=== PATIENT | female | born 1945 | race Caucasian/White ===

== ENCOUNTER 2016-10-22 13:56 | Inpatient (IN) ==
--- NOTE | 2016-10-22 14:07 | Emergency Department Note ---
Disposition Clinical Impression: Pneumonitis, Elevated troponin, Dyspnea Disposition: Admitted As Inpatient Condition: Good General Adult HPI - General Chief complaint: ED Fever Stated complaint: cough, fever Time Seen by Provider: 10/22/16 14:04 Source: patient - History of Present Illness Pain Scale: 8 - Related Data Home Medications Medication Instructions Recorded Confirmed Albuterol Sulfate [Proair Hfa] 2 puff IH Q4H PRN 10/22/16 10/22/16 Amitriptyline [Elavil] 10 mg PO HS 10/22/16 10/22/16 Aspirin [Lo-Dose Aspirin EC] 81 mg PO DAILY 10/22/16 10/22/16 Cholecalciferol (D-3) [Vitamin D] 1,000 unit PO DAILY 10/22/16 10/22/16 Docusate Sodium [Colace] 100 mg PO DAILY 10/22/16 10/22/16 Escitalopram [Lexapro] 20 mg PO DAILY 10/22/16 10/22/16 Furosemide [Lasix] 20 mg PO DAILY PRN 10/22/16 10/22/16 Glucosamine/D3/Boswellia Teena 1 tab PO DAILY 10/22/16 10/22/16 [Osteo Bi-Flex Tablet] LORazepam [Ativan] 1 mg PO TID PRN 10/22/16 10/22/16 Lansoprazole [Prevacid] 30 mg PO DAILY 10/22/16 10/22/16 Lidocaine Patch [Lidoderm 5% patch] 1 patch TP DAILY 10/22/16 10/22/16 Potassium Chloride [K-Tab ER] 20 meq PO DAILY 10/22/16 10/22/16 Simvastatin [Zocor] 20 mg PO DAILY 10/22/16 10/22/16 Allergies Allergy/AdvReac Type Severity Reaction Status Date / Time meloxicam Allergy Rash Verified 10/22/16 17:34 Past Medical History - Past Medical History Medical history: Reports: cancer Psychiatric history: Reports: no psych history - Social History Smoking Status: Former smoker Alcohol use: Reports: none Drug use: Reports: none Physical Exam - General General appearance: alert, in no apparent distress Course Vital Signs Temperature 100.4 F H 10/22/16 13:57 Pulse Rate 98 10/22/16 13:57 Respiratory Rate 16 10/22/16 13:57 Blood Pressure 162/61 10/22/16 13:57 O2 Sat by Pulse Oximetry 93 10/22/16 13:57 Temperature 100.4 F H 10/22/16 13:57 Pulse Rate 90 10/22/16 17:34 Respiratory Rate 16 10/22/16 17:50 Blood Pressure 108/42 10/22/16 17:50 O2 Sat by Pulse Oximetry 97 10/22/16 17:34 Oxygen Delivery Oxygen Delivery Room Air Medical Decision Making - Lab Data Result diagrams: 10/22/16 14:33 10/22/16 14:33 Lab Results 10/22/16 10/22/16 10/22/16 Range/Units 14:33 14:33 14:33 WBC 13.2 H (4.3-11.1) K/mcL RBC 3.09 L (3.82-4.97) M/mcL Hgb 10.6 L (11.5-15.4) g/dL Hct 32.7 L (35.3-44.9) % MCV 105.5 H (83.0-100.0) fL MCH 34.0 H (28.0-33.3) pg MCHC 32.2 (31.6-35.5) g/dL RDW 15.0 H (11.5-14.5) % Plt Count 216 (140-400) K/mcL MPV 10.5 (9.4-12.4) fL Immature Gran % 0.2 (0-4) % Seg Neutrophils % 78.6 % Lymphocytes % 14.0 % Monocytes % 7.0 % Eosinophils % 0.0 % Basophils % 0.2 % Neutrophils # 10.3 H (1.6-8.9) K/mcL Lymphocytes # 1.8 (0.6-4.6) K/mcL Monocytes # 0.9 (0.0-1.3) K/mcL Eosinophils # 0.0 (0.0-0.6) K/mcL Basophils # 0.0 (0.0-0.2) K/mcL Sodium 140 (136-145) mEq/L Potassium 3.9 (3.5-4.5) mEq/L Chloride 105 (98-109) mEq/L Carbon Dioxide 26 (19-29) mEq/L BUN 15 (7-20) mg/dL Creatinine 0.88 (0.57-1.11) mg/dL Est GFR ( Amer) > 60 (> 60) Est GFR (Non-Af Amer) > 60 (> 60) BUN/Creatinine Ratio 17 (6-26) Glucose 110 H (70-99) mg/dL Calculated Osmolality 291 (280-300) Calcium 9.5 (8.6-10.8) mg/dL Troponin I 0.05 H* (0-0.03) ng/mL Attestation Statement - Attestation Attestation: I examined this patient and my medical decision-making was reviewed with the FEED MIXER/PA/Advanced Practice Nurse/Resident Physician. I agree with the documented findings, disposition and treatment plan as described except to the extent set forth below. [id number] time provided Patient complains of a nonproductive cough for the past several days. MAXIMUM TEMPERATURE 102 since yesterday. She appears in no acute distress on exam
--- NOTE | 2016-10-22 14:27 | Emergency Department Note ---
Disposition Clinical Impression: Pneumonitis, Elevated troponin Dyspnea Qualifiers: Dyspnea type: unspecified Qualified Code(s): R06.00 - Dyspnea, unspecified Disposition: Admitted As Inpatient Condition: Good Referrals: Serjio Engel Jr, MD [Primary Care Provider] - Forms: ED Satisfaction Letter Fever HPI - General Chief Complaint: ED Fever Stated Complaint: cough, fever Time Seen by Provider: 10/22/16 14:04 Source: patient Nursing Notes Reviewed: Yes Vital Signs Reviewed: Yes - History of Present Illness HPI Narrative: 71-year-old female with a history of non-Hodgkin's lymphoma years ago status post chemotherapy presents to the emergency department with a chief complaint of shortness of breath and fever. She states over the last 24 hours her breathing has worsened and she has had a light cough. She reports a fever however, she reports intermittent fevers for years ever since the diagnosis of lymphoma. She had her spleen removed years ago which help diagnose her lymphoma. She has a history of COPD and is a former smoker. She denies any history of coronary artery disease or congestive heart failure. She states she developed a post-operative DVT years ago and has a Wisdom filter but no anticoagulants because she could not tolerate Coumadin. She states this was not abrupt in onset and has been progressive. She states it is worse and mostly over the last 24 hours but has had progressive shortness of breath for the last few days. She reports chronic lower extremity swelling without any new swelling. She denies any calf tenderness. About a month and a half ago she fell injuring her right ribs but no other injury. She denies any abdominal pain, nausea or vomiting. Denies any pain going into her back. Denies any associated diaphoresis. - Related Data Allergies Allergy/AdvReac Type Severity Reaction Status Date / Time No Known Allergies Allergy Verified 10/22/16 14:02 All systems ED: reviewed and negative except as stated. Constitutional: Reports: fever Cardiovascular: Denies: chest pain Respiratory: Reports: cough Gastrointestinal: Denies: abdominal pain, nausea, vomiting Musculoskeletal: Denies: back pain, neck pain Integumentary: Denies: rash Neurological: Reports: headache (She reports mild headache without any neck pain or rigidity). Denies: weakness, numbness Fever PMH - Past Medical History Medical history: Reports: cancer Psychiatric history: Reports: no psych history - Social History Smoking Status: Former smoker Alcohol use: Reports: none Drug use: Reports: none Physical Exam General: Appears well, alert and oriented x 3 Cardiovascular: Regular rate and rhythm. S1, S2. No murmurs, rubs or gallops. No JVD Respiratory: Diminished breath sounds bilaterally without any wheezing, rales or rhonchi. Abdomen: Soft, nontender. No guarding, rebound or rigidity. Eyes: Conjunctiva clear, HENT: Normocephalic, no signs of head injury. No oral mucosal lesions. Moist mucous membranes Neuro: Alert and oriented 3, no motor or sensory deficits Musculoskeletal: Bilateral lower extremity edema involving the ankles and shins. No calf tenderness or calf asymmetry. Skin: No lesions. No diaphoresis. Normal turgor. Normal color Psych: Appropriate - General General appearance: alert, in no apparent distress Course Course Narrative: Presents with fevers, cough and shortness of breath. Initial EKG shows some new T-wave inversions in 1 and aVL. No history of CAD in the past. The chest x -ray showed some inflammatory changes but nothing significant. She also has a history of DVT with a Wisdom filter. We felt patient was high enough risk with her symptoms and history a CTA was ordered. CTA shows some inflammatory/ pneumonitis changes in the left lung but no evidence of PE. I feel her troponin elevation does not represent ACS and will just need to be trended in the hospital and may be due to her lung infection. We will treat her respiratory symptoms with dual nebs, IV Rocephin and azithromycin to help cover atypicals and admission to the hospital for observation. Discussed with the on- call hospitalist, Dr. Claros who accepts for admission Vital Signs Temperature 100.4 F H 10/22/16 13:57 Pulse Rate 98 10/22/16 13:57 Respiratory Rate 16 10/22/16 13:57 Blood Pressure 162/61 10/22/16 13:57 O2 Sat by Pulse Oximetry 93 10/22/16 13:57 Temperature 100.4 F H 10/22/16 13:57 Pulse Rate 91 10/22/16 16:09 Respiratory Rate 16 10/22/16 16:09 Blood Pressure 127/55 10/22/16 16:09 O2 Sat by Pulse Oximetry 95 10/22/16 16:09 Oxygen Delivery Oxygen Delivery Room Air Fever - Lab Data Result diagrams: 10/22/16 14:33 10/22/16 14:33 Lab Results 10/22/16 10/22/16 10/22/16 Range/Units 14:33 14:33 14:33 Hgb 10.6 L (11.5-15.4) g/dL Hct 32.7 L (35.3-44.9) % Sodium 140 (136-145) mEq/L Potassium 3.9 (3.5-4.5) mEq/L Chloride 105 (98-109) mEq/L Carbon Dioxide 26 (19-29) mEq/L BUN 15 (7-20) mg/dL Creatinine 0.88 (0.57-1.11) mg/dL Est GFR ( Amer) > 60 (> 60) Est GFR (Non-Af Amer) > 60 (> 60) BUN/Creatinine Ratio 17 (6-26) Glucose 110 H (70-99) mg/dL Calculated Osmolality 291 (280-300) Calcium 9.5 (8.6-10.8) mg/dL Troponin I 0.05 H* (0-0.03) ng/mL - EKG Data EKG results narrative: EKG shows a sinus rhythm with a rate of 91 beats or minute. She has a left bundle-branch block pattern. No ST elevation or depression. New T-wave inversions in lead 1 and aVL. Previous EKG in 2012 shows similar wave morphology however the T-wave inversion was not present
[2016-10-22 14:48] LABS: Hematocrit 32.7 % (35.3-44.9); Hemoglobin 10.6 g/dL (11.5-15.4)
[2016-10-22 15:01] LABS: BUN/Creatinine Ratio 17 (6-26); Blood Urea Nitrogen 15 mg/dL (7-20); Calcium 9.5 mg/dL (8.6-10.8); Carbon Dioxide 26 mEq/L (19-29); Chloride 105 mEq/L (98-109); Glucose 110 mg/dL (70-99); Osmolality,Calculated 291 (280-300); Potassium 3.9 mEq/L (3.5-4.5); Sodium 140 mEq/L (136-145); eGFR For African Americans > 60 (> 60); eGFR For Non-African Americans > 60 (> 60)
[2016-10-22] MEDS ORDERED: Ipratropium/Albuterol Neb 3 ML IH ONE (15:33)
[2016-10-22] MEDS ORDERED: Azithromycin 250 MG TABLET PO ONE (16:27)
[2016-10-22] MEDS ORDERED: Naloxone 0.4 MG/ML INJ IVP PRN (17:06)
[2016-10-22] MEDS ORDERED: Ondansetron 4 MG/2 ML VIAL IVP PRN (17:06)
[2016-10-22] MEDS ORDERED: *HR* HYDROcodone/Acet 5/325 mg TABLET PO PRN (17:06)
[2016-10-22] MEDS ORDERED: Albuterol 2.5 MG/3 ML NEBULIZER IH PRN (17:11)
--- NOTE | 2016-10-22 17:22 | Internal Med History&Physical ---
Date of Encounter: 10/22/16 Time of Encounter: 17:22 Assessment and Plan (1) Pneumonia Current visit: Yes Status: Acute 1patient has been experiencing 2 days cough shortness of breath fever sputum production. CT revealed groundglass opacities in left upper and lower lobes indicative of pneumonia. Patient was initiated on Rocephin as well as azithromycin will continue 2 we will obtain blood cultures as well as sputum cultures 3 breathing treatments 4 oxygen titrated to maintain O2 sat 92% 5 we will obtain flu swabs 6. Hold off on steroids for now Qualifiers: Pneumonia type: due to unspecified organism Laterality: left Lung location: unspecified part of lung Qualified Code(s): J18.9 - Pneumonia, unspecified organism (2) History of non-Hodgkin's lymphoma Current visit: No Status: Chronic 1 patient has been in remission-presently stable we will monitor (3) History of DVT (deep vein thrombosis) Current visit: No Status: Chronic 1 she has Uriel filter we will add Lovenox for DVT prophylaxis (4) COPD (chronic obstructive pulmonary disease) Current visit: Yes Status: Chronic 1continue with bronchodilators and oxygen 2 add steroids if wheezing continues Qualifiers: COPD type: unspecified COPD Qualified Code(s): J44.9 - Chronic obstructive pulmonary disease, unspecified (5) Elevated troponin Current visit: Yes Status: Acute troponin 0.05 suspect this is demand ischemia I will continue to trend troponins 2 we will obtain cardiac echo Internal Medicine - H&P: HPI Chief complaint: Shortness of breath Admitted From: Emergency Dept Plans for Post Hospital Care: Home History of present illness: Ms. Landin is a 71 year old female past medical history of non-Hodgkin's lymphoma DVT with Uriel filter placement arthritis GERD COPD. Greater than patient has been experiencing increasing fatigue and weakness as well as cough fever for the past 2 days. States cough has been producing rust color sputum fevers-102.7. She also complains of headache and achiness having some difficulty sleeping shortness of breath on exertion and wheezing. She does admit to sick contact she denies any nausea vomiting diarrhea or chest pain. She presented to the ER the above complaints. Upon presentation patient's temp was 100.4 oxygen saturation was 93% on room air CTA was obtained which did show some groundglass opacities and left upper and lower lung alberts indicative of pneumonia. EKG with no ST-T wave abnormalities troponin was 0.05 Patient was given IV antibiotics and has been admitted for further workup evaluation. Presently patient does not appear to be any respiratory distress she denies any chest pain lung sounds with expiratory wheezes throughout and crackles in the bases. Heart sounds S1 and S2 with no rubs gallops clicks or murmurs noted I reviewed this case with who agrees with plan Past Med Surg Social Fam HX - Past Medical History Medical history: cancer Psychiatric history: no psych history - Social History Smoking Status: Former smoker Alcohol use: none Drug use: none - Family History Father Living Status: Cause of : Heart disease Mother Living Status: Cause of : Pancreatic cancer Internal Medicine - H&P: Meds Albuterol Sulfate [Proair Hfa] 2 puff IH Q4H PRN 10/22/16 [History] Amitriptyline [Elavil] 10 mg PO HS 10/22/16 [History] Aspirin [Lo-Dose Aspirin EC] 81 mg PO DAILY 10/22/16 [History] Cholecalciferol (D-3) [Vitamin D] 1,000 unit PO DAILY 10/22/16 [History] Docusate Sodium [Colace] 100 mg PO DAILY 10/22/16 [History] Escitalopram [Lexapro] 20 mg PO DAILY 10/22/16 [History] Furosemide [Lasix] 20 mg PO DAILY PRN 10/22/16 [History] Glucosamine/D3/Boswellia Teena [Osteo Bi-Flex Tablet] 1 tab PO DAILY 10/22/16 [ History] LORazepam [Ativan] 1 mg PO TID PRN 10/22/16 [History] Lansoprazole [Prevacid] 30 mg PO DAILY 10/22/16 [History] Lidocaine Patch [Lidoderm 5% patch] 1 patch TP DAILY 10/22/16 [History] Potassium Chloride [K-Tab ER] 20 meq PO DAILY 10/22/16 [History] Simvastatin [Zocor] 20 mg PO DAILY 10/22/16 [History] Allergies meloxicam Allergy (Verified 10/22/16 17:34) Rash All Systems PM: A 10-system review of systems was performed and is negative for pertinent findings except as documented above in the HPI. - Constitutional Constitutional: fatigue, fever(s), weakness - EENT Eyes: no change in vision, no discharge, no pain, no photophobia Nose, mouth and throat: no dysphagia, no nasal discharge, no neck pain, no sore throat - Cardiovascular Cardiovascular ROS IM: no chest pain, no diaphoresis, no dyspnea, no lightheadedness, no palpitations, no syncope - Respiratory Respiratory: cough, dyspnea on exertion, change in phlegm color - Gastrointestinal Gastrointestinal: no abdominal pain, no diarrhea, no hematemesis, no hematochezia, no melena, no nausea, no vomiting - Genitourinary Genitourinary: no change in urinary stream, no dysuria, no flank pain, no hematuria - Musculoskeletal Musculoskeletal ROS IM: no numbness, no tingling - Integumentary Integumentary IM: no rash, no unusual bruising - Neurological Neurological ROS: no confusion, no convulsions, no focal weakness, no numbness, no tingling, no tremor(s) - Hematologic/Lymphatic Hematologic/Lymphatic: no easy bruising - Constitutional Vitals: Temp Pulse Resp BP Pulse Ox 100.4 F H 91 16 127/55 95 10/22/16 13:57 10/22/16 16:09 10/22/16 16:09 10/22/16 16:09 10/22/16 16:09 General appearance: Present: A&O X 3, answers questions appropriately - Head Head exam: Present: atraumatic, normocephalic - Eye Eye exam: Present: PERRL, conjuntiva pink, sclera anicteric Pupils: Present: PERRL - Neck Neck exam general surgery: Present: supple, trachea midline. Absent: lymphadenopathy - Respiratory Respiratory exam: Present: rales, wheezes. Absent: accessory muscle use, rhonchi - Cardiovascular Cardiovascular exam: Present: RRR, +S1, +S2. Absent: diastolic murmur, gallop, rubs, systolic murmur - GI/Abdominal GI/Abdominal exam: Present: normal bowel sounds, soft, no peritoneal signs. Absent: distended, tenderness - Extremities Exam Extremities exam: Present: warm, radial pulses palpable and symetrical. Absent : calf tenderness, cyanotic, pedal edema - Neurological Exam Neurological exam: Present: CN II-XII intact, oriented X3, no focal deficits. Absent: pronater drift, facial droop, speech deficit - Skin Skin exam: Present: dry, intact Internal Med - H&P Results - Labs CBC & Chem 7: 10/22/16 14:33 10/22/16 14:33 - EKG Data EKG shows normal: sinus rhythm - Diagnostic Studies Other Images Additional comments: Chest X-Ray 10/22/16 14:28 IMPRESSION: Bibasilar atelectasis or pneumonitis. Follow-up to resolution suggested. D/ / Jakub Brewer MD / Jakub Brewer MD Interpreting Provider: Jakub Brewer MD Chest CTA 10/22/16 15:32 IMPRESSION: No gross findings of pulmonary embolism. New patchy heterogeneous and ground-glass nodules throughout the left upper and lower lobe, suggestive of pneumonitis. Follow-up to complete resolution is recommended. Moderate hiatal hernia. Atherosclerosis, including coronary artery calcification. D/ / Jakub Brewer MD / Jakub Brewer MD Interpreting Provider: Jakub Brewer MD
[2016-10-22 17:31] LABS: Basophils % 0.2 %; Immature Granulocytes % 0.2 % (0-4); Lymphocytes # 1.8 K/mcL (0.6-4.6); Mean Corpuscular HGB Conc 32.2 g/dL (31.6-35.5); Mean Corpuscular Volume 105.5 fL (83.0-100.0); Mean Platelet Volume 10.5 fL (9.4-12.4); Monocytes # 0.9 K/mcL (0.0-1.3); Neutrophils # 10.3 K/mcL (1.6-8.9); Platelet Count 216 K/mcL (140-400); Red Blood Count 3.09 M/mcL (3.82-4.97); Segmented Neutrophils % 78.6 %
[2016-10-22] MEDS: Aspirin 81 MG TAB.CHEW PO SCH (17:32)
--- NOTE | 2016-10-22 17:50 | Event Note ---
Date of Encounter: 10/22/16 Time of Encounter: 17:30 I examined this patient and my medical decision-making was reviewed with Ms. Cantu. I agree with the documented findings, disposition and treatment plan as described except to the extent set forth below. Briefly, 71-year-old female presents to the emergency room due to fever, dry cough, shortness of breath that has been going on for the past few days. She also reports recent wheezing. On exam, patient has intermittent end expiratory wheezing bilaterally. She appears to be in mild distress. Laboratory data reviewed. CT antigram personally reviewed-no evidence of PE. Groundglass nodules throughout the left upper and lower lobes suggestive of pneumonitis. 1. Pneumonitis-patient will be admitted to inpatient status. High risk is due to risk of sepsis. Expected length of stay is at least 2 midnights. Expected discharge disposition is to home. Patient will be given intravenous antibiotics. Will hold off on steroids for now. If the patient's status does not improve adequately, we will consider addition of steroids. Breathing treatments. Flu testing. Urine strep local and regional antigens. 2. Macrocytic anemia 3. Elevated troponin level-no EKG changes suggestive of ischemia. We will cycle troponins levels and obtain an echocardiogram. Further management to depend on the results of her lab work and echocardiogram. 4. History of non-Hodgkin's lymphoma status post chemotherapy JONO Umaña
[2016-10-22] MEDS ORDERED: *HR* LORazepam 1 MG TABLET PO PRN (17:55)
[2016-10-22] MEDS: Ipratropium/Albuterol Neb 3 ML IH SCH ×2 (20:10→23:59)
[2016-10-23 01:21] LABS: Basophils % 0.2 %; Hematocrit 29.7 % (35.3-44.9); Hemoglobin 9.7 g/dL (11.5-15.4); Immature Granulocytes % 0.4 % (0-4); Lymphocytes # 4.8 K/mcL (0.6-4.6); Lymphocytes % 24.4 %; Mean Corpuscular HGB Conc 32.7 g/dL (31.6-35.5); Mean Corpuscular Hemoglobin 33.8 pg (28.0-33.3); Mean Corpuscular Volume 103.5 fL (83.0-100.0); Mean Platelet Volume 9.7 fL (9.4-12.4); Monocytes # 1.3 K/mcL (0.0-1.3); Monocytes % 6.5 %; Neutrophils # 13.4 K/mcL (1.6-8.9); Platelet Count 186 K/mcL (140-400); Red Blood Count 2.87 M/mcL (3.82-4.97); Segmented Neutrophils % 68.5 %
[2016-10-23 01:32] LABS: BUN/Creatinine Ratio 17 (6-26); Blood Urea Nitrogen 15 mg/dL (7-20); Calcium 8.9 mg/dL (8.6-10.8); Carbon Dioxide 25 mEq/L (19-29); Chloride 105 mEq/L (98-109); Glucose 109 mg/dL (70-99); Osmolality,Calculated 287 (280-300); Potassium 3.6 mEq/L (3.5-4.5); Sodium 138 mEq/L (136-145); eGFR For African Americans > 60 (> 60); eGFR For Non-African Americans > 60 (> 60)
[2016-10-23] MEDS: Ipratropium/Albuterol Neb 3 ML IH SCH ×6 (04:05→23:05)
[2016-10-23] MEDS: *HR* Enoxaparin 40 MG/0.4 ML SYRINGE SQ SCH (06:16)
[2016-10-23] MEDS: Aspirin 81 MG TAB.CHEW PO SCH (07:33)
[2016-10-23] MEDS: Cholecalciferol (D-3) 1,000 UNIT TABLET PO SCH (07:33)
[2016-10-23] MEDS ORDERED: Aspirin Enteric Coated 81 MG Tablet PO SCH (09:00)
--- NOTE | 2016-10-23 10:14 | Internal Med Progress Note ---
<Jeison Wilson - Last Filed: 10/23/16 09:59> Date of Encounter: 10/23/16 Time of Encounter: 10:00 - Assessment and plan (1) Pneumonia Current Visit: Yes Status: Acute Assessment and plan: 70-year-old female history of non-Hodgkin's lymphoma in remission, DVT with Uriel filter placed, gastric reflux presents with fever and shortness of breath. Patient's symptoms started Monday morning. She had rust-colored sputum and fevers of 102.7. Patient also complained of headache, difficulty sleeping, shortness of breath worsening with exertion. On presentation patient' s temperature is 100.4 and she is saturating 93% on room air. CTA showed groundglass opacities in the left upper and lower lobe and was negative for PE. CT also showed a large hiatal hernia the patient says she has no history of. Patient's EKG showed ST-T wave changes in 1 and aVL and her troponin initially was 0.05 which trended down to 0.02. Patient states Monday night she came home late and had a late dinner. She has a history of gastric reflux. CTA found a large hiatal hernia. Patient sleeps flat on the bed. Patient takes ibuprofen for headache. Pneumonia most likely secondary to aspiration Leukocytosis increased from 13-19.5. Over the past 24 hours patient's shortness of breath is improved. Her lung sounds are clear without wheezing, rales or rhonchi. Continue ceftriaxone and azithromycin. Currently on room air. Qualifiers: Pneumonia type: aspiration pneumonia Aspiration pneumonia type: due to gastric secretions Laterality: left Lung location: unspecified part of lung Qualified Code(s): J69.0 - Pneumonitis due to inhalation of food and vomit (2) Elevated troponin Current Visit: Yes Status: Acute Assessment and plan: On presentation patient troponin was 0.05, and trended down to 0.04 and 0.02. EKG shows sinus rhythm with no ST elevations or depressions. no changes from previous. Patient denies chest pain, nausea, diaphoresis. Patient did state she was short of breath with exertion. We will obtain echocardiogram. no previous cardiac workup on file. (3) History of non-Hodgkin's lymphoma Current Visit: Yes Status: Chronic Assessment and plan: hx of non-hodgkin's lymphoma in remission denies recent weight loss. (4) History of DVT (deep vein thrombosis) Current Visit: Yes Status: Chronic Assessment and plan: Patient presented with SOB has hx of DVT and uriel filter CTA was negative for PE Wells: 1.5 for previous DVT (5) Hiatal hernia Current Visit: Yes Status: Acute Assessment and plan: Patient has hiatal hernia seen on CTA. Denies previous hx She has hx of acid reflux currently on omeprazole. Patient states that she takes ibuprofen for headaches. We will follow with general surgery outpatient for further evaluation. Keep head of bed elevated. d/c any nsaids besides EC asprin. (6) Anemia Current Visit: Yes Status: Acute Assessment and plan: hgb on presentation is 10.6. Today 9.7 Patient states her hemoglobin is normally 11. MCV 103.5 Macrocytic anemia Denies any history of blood in the stool, urine. Previous colonoscopy in 2013 was normal. Order, MMA, homocystiene, iron panel, ferritin. Qualifiers: Anemia type: unspecified type Qualified Code(s): D64.9 - Anemia, unspecified - Subjective Interval history: Patient states her shortness of breath is improved. She is not on oxygen supplementation currently. She states she has a headache right now. Does not have any other complaints. - Constitutional Vitals: Temp Pulse Resp BP Pulse Ox 98.1 F 75 18 104/51 94 10/23/16 07:19 10/23/16 07:19 10/23/16 08:07 10/23/16 07:19 10/23/16 08:07 General appearance: Present: A&O X 3, answers questions appropriately - Respiratory Respiratory exam: Present: CTAB. Absent: accessory muscle use, rales, rhonchi, wheezes - Cardiovascular Cardiovascular exam: Present: RRR, +S1, +S2. Absent: diastolic murmur, gallop, rubs, systolic murmur - GI/Abdominal GI/Abdominal exam: Present: normal bowel sounds, soft, no peritoneal signs. Absent: distended, tenderness - Extremities Exam Extremities exam: Present: warm, radial pulses palpable and symetrical. Absent : calf tenderness, cyanotic, pedal edema - Skin Skin exam: Present: dry, intact Internal Medicine: Result - Labs CBC & Chem 7: 10/23/16 01:11 10/23/16 01:11 Labs: Short CBC 10/23/16 Range/Units 01:11 WBC 19.5 H (4.3-11.1) K/mcL Hgb 9.7 L (11.5-15.4) g/dL Hct 29.7 L (35.3-44.9) % Plt Count 186 (140-400) K/mcL Neutrophils # 13.4 H (1.6-8.9) K/mcL BMP 10/23/16 01:11 Sodium 138 Potassium 3.6 Chloride 105 Carbon Dioxide 25 BUN 15 Creatinine 0.90 Glucose 109 H Calcium 8.9 Cardiac Enzymes 10/22/16 10/23/16 Range/Units 19:41 01:11 Troponin I 0.04 H* 0.02 (0-0.03) ng/mL Consult Discharge Plan - Plan Referrals: Serjio Engel Jr, MD [Primary Care Provider] - <Vasquez Han - Last Filed: 10/23/16 14:38> Date of Encounter: 10/23/16 - Assessment and plan (1) Acute respiratory failure with hypoxia Current Visit: Yes Status: Acute Assessment and plan: Improving with treatment. (2) Pneumonia Current Visit: Yes Status: Suspected Qualifiers: Pneumonia type: aspiration pneumonia Aspiration pneumonia type: due to gastric secretions Laterality: left Lung location: unspecified part of lung Qualified Code(s): J69.0 - Pneumonitis due to inhalation of food and vomit (3) COPD (chronic obstructive pulmonary disease) Current Visit: Yes Status: Chronic Qualifiers: COPD type: unspecified COPD Qualified Code(s): J44.9 - Chronic obstructive pulmonary disease, unspecified (4) Anemia Current Visit: Yes Status: Acute Qualifiers: Anemia type: unspecified type Qualified Code(s): D64.9 - Anemia, unspecified (5) Hiatal hernia Current Visit: Yes Status: Acute (6) History of non-Hodgkin's lymphoma Current Visit: Yes Status: Chronic (7) History of DVT (deep vein thrombosis) Current Visit: Yes Status: Chronic - Constitutional Vitals: Temp Pulse Resp BP Pulse Ox 97.8 F 74 18 116/50 96 10/23/16 11:17 10/23/16 11:17 10/23/16 11:17 10/23/16 11:17 10/23/16 11:17 Internal Medicine: Result - Labs CBC & Chem 7: 10/23/16 01:11 10/23/16 01:11 Labs: Short CBC 10/23/16 Range/Units 01:11 WBC 19.5 H (4.3-11.1) K/mcL Hgb 9.7 L (11.5-15.4) g/dL Hct 29.7 L (35.3-44.9) % Plt Count 186 (140-400) K/mcL Neutrophils # 13.4 H (1.6-8.9) K/mcL BMP 10/23/16 01:11 Sodium 138 Potassium 3.6 Chloride 105 Carbon Dioxide 25 BUN 15 Creatinine 0.90 Glucose 109 H Calcium 8.9 Cardiac Enzymes 10/22/16 10/23/16 Range/Units 19:41 01:11 Troponin I 0.04 H* 0.02 (0-0.03) ng/mL - Attending Attestation I examined this patient and my medical decision-making was reviewed with the Resident Physician on 10/23/16. I agree with the documented findings, disposition and treatment plan as described except to the extent set forth below. Ms. Landin is currently admitted for hypoxia and acute pneumonia. She is moderate to high risk due to potential for worsening respiratory distress. Mr. Landin says she is beginning to feel better. Less cough though still dry. No more fever. No significant dyspnea. No GI symptoms. Exam Alert. Comfortable Heart reg Scattered rales and rhonchi L lung Abd soft I/P 1. L pneumonia 2. Prior NHL Further diagnoses and plan as above.
[2016-10-23] MEDS: Acetaminophen 325 MG TABLET PO PRN ×2 (11:22→22:22)
--- NOTE | 2016-10-23 15:21 | ECHO - Doppler Report ---
Echocardiogram Name: Kelli Landin Date of Study: 10/23/2016 Date: 1945 Ht: 61.0 in Medical Record#: [id number] Age: 71 Wt: 170.0 lb Gender: Female BSA: 1.76 Order #: [id number] Location: [facility] Room #: 2NE18 Reading Physician: Afshin Balderrama MD, [facility] Internet Marketing Coordinator: Raul Talamantes RDCS Ordering Physician: Adriana Cantu CNP Primary Physician: Serjio Engel MD Indications: Elevated troponin Impressions: LVEF 60-65%. No pulmonary hypertension. No significant valvular dysfunction. Left Ventricular Wall Motion: Rest Echo Findings All wall segments showed normal motion. Findings: Study Quality * Technically adequate exam. Right Ventricle * Normal right ventricular structure and function. Left Atrium * Normal left atrial size. Right Atrium * Normal right atrial size. Interatrial Septum * No evidence of PFO by color Doppler. Aorta * Normally sized aortic root. Pericardium * The pericardium appears normal. ECG Findings * Normal sinus rhythm. Tricuspid Valve * Trace tricuspid regurgitation. * No tricuspid stenosis. * No pulmonary hypertension. * Estimated RVSP is 22 mmHg. * Normal tricuspid valve structure. * Estimated RA pressure is 10-15 mmHg. Aortic Valve * No aortic regurgitation. * No aortic stenosis. * Aortic valve not well visualized. Mitral Valve * Mitral valve not well visualized. * Trace mitral regurgitation. * No mitral stenosis. Left Ventricle * LVEF 60-65%. * Normal left ventricular diastolic function. IVC * The IVC is dilated. * < 50% respiratory change. Pulmonic Valve * No pulmonic stenosis. * No pulmonic regurgitation. * Pulmonic valve is not well visualized. History Hypercholesteremia Family History of CAD Measurements: BP: 104/ 51 2D Normal Values RVIDd: 1.00 cm <2.7 cm IVSd: .71 cm 0.6 - 1.0 cm LVIDd: 4.27 cm 3.7 - 5.6 cm LVPWd: .72 cm 0.6 - 1.1 cm LVIDs: 2.72 cm 1.5 - 3.6 cm AO: 2.40 cm < 4.0 cm LA: 3.00 cm 2.0 - 4.0cm %FS: 36.30 cm >25 % LA volume: 71 Mitral Valve Peak E:1.10 m/sec Peak A:1.06 m/sec E/A Ratio:1 Peak E' Lat Dmitriy:7.07 cm/s Peak E' Med Dmitriy:8.27 cm/s E/E' Lat Ratio:15.6 E/E' Med Ratio:13.3 Tricuspid Valve TV Regurg Peak Grad: 22.00mmHg TV Regurg Peak Dmitriy: 2.23m/sec Updated by Afshin Balderrama MD, [facility] on 10/23/2016 3:09:29 PM electronically signed on 10/23/2016 3:16:05 PM with status of Final Wall Motion Thomas: 1=Normal, 2=Hypokinesis, 3=Akinesis, 4=Dyskinesis, 5=Aneurysmal, 6=Hyperkinetic, X=Not Visualized (Blank)=Missing
[2016-10-23] MEDS ORDERED: Azithromycin 500 MG in D5% in Water 250 ML IVPB SCH (18:00)
--- NOTE | 2016-10-23 20:29 | Electrocardiograph Report ---
[place] [id number] Test Date: 2016-10-22 Pat Name: Kelli Landin Department: 104 Room: 2NE18 Gender: F [employer] Operator: : 1945 Requested By: Ricci Summers Order Number: [id number] Reading MD: Afshin Balderrama MD Measurements Intervals [place] Rate: 91 P: 25 WV: 167 QRS: -16 QRSD: 117 T: 109 QT: 355 QTc: 404 Interpretive Statements SINUS RHYTHM LEFT VENTRICULAR HYPERTROPHY AND ST-T CHANGE Electronically Signed On 10-23-2016 20:27:51 EDT by Afshin Balderrama MD
[2016-10-24] MEDS: Ipratropium/Albuterol Neb 3 ML IH SCH ×2 (03:33→07:49)
[2016-10-24] MEDS: Acetaminophen 325 MG TABLET PO PRN (04:35)
[2016-10-24 04:54] LABS: Basophils % 0.2 %; Hematocrit 29.9 % (35.3-44.9); Hemoglobin 9.5 g/dL (11.5-15.4); Immature Granulocytes % 0.3 % (0-4); Lymphocytes # 5.4 K/mcL (0.6-4.6); Lymphocytes % 35.2 %; Mean Corpuscular HGB Conc 31.8 g/dL (31.6-35.5); Mean Corpuscular Hemoglobin 33.5 pg (28.0-33.3); Mean Corpuscular Volume 105.3 fL (83.0-100.0); Mean Platelet Volume 10.3 fL (9.4-12.4); Monocytes # 1.1 K/mcL (0.0-1.3); Monocytes % 6.9 %; Neutrophils # 8.8 K/mcL (1.6-8.9); Platelet Count 191 K/mcL (140-400); Red Blood Count 2.84 M/mcL (3.82-4.97); Red Cell Distribution Width 15.3 % (11.5-14.5); Segmented Neutrophils % 57.4 %
[2016-10-24 04:56] LABS: % Iron Saturation 24 % (15-50); Iron 54 mcg/dL (50-170); Transferrin 163 mg/dL (180-382)
[2016-10-24 05:07] LABS: Ferritin 624 ng/ml (5-204)
[2016-10-24] MEDS: *HR* Enoxaparin 40 MG/0.4 ML SYRINGE SQ SCH (06:44)
[2016-10-24] MEDS: Cholecalciferol (D-3) 1,000 UNIT TABLET PO SCH (08:11)
[2016-10-24] MEDS: Aspirin 81 MG TAB.CHEW PO SCH (08:11)
[2016-10-24 11:00] VITALS: BP 128/61
--- NOTE | 2016-10-24 11:58 | Discharge Summary ---
<Addy Aguirre - Last Filed: 10/24/16 12:39> Date of Encounter: 10/24/16 Time of Encounter: 10:30 - Discharge Diagnosis (1) Pneumonia Priority: Primary Status: Acute Qualifiers: Pneumonia type: aspiration pneumonia Aspiration pneumonia type: due to gastric secretions Laterality: left Lung location: unspecified part of lung Qualified Code(s): J69.0 - Pneumonitis due to inhalation of food and vomit (2) Hiatal hernia Priority: Secondary Status: Acute (3) Elevated troponin Priority: Secondary Status: Acute (4) History of non-Hodgkin's lymphoma Priority: Secondary Status: Chronic (5) History of DVT (deep vein thrombosis) Priority: Secondary Status: Chronic (6) Anemia Priority: Secondary Status: Acute Qualifiers: Anemia type: unspecified type Qualified Code(s): D64.9 - Anemia, unspecified - Discharge Medications Prescriptions: Levofloxacin [Levaquin] 750 mg PO DAILY #4 tablet Home Medications: Albuterol Sulfate [Proair Hfa] 2 puff IH Q4H PRN 10/22/16 [History] Amitriptyline [Elavil] 10 mg PO HS 10/22/16 [History] Aspirin [Lo-Dose Aspirin EC] 81 mg PO DAILY 10/22/16 [History] Cholecalciferol (D-3) [Vitamin D] 1,000 unit PO DAILY 10/22/16 [History] Docusate Sodium [Colace] 100 mg PO DAILY 10/22/16 [History] Escitalopram [Lexapro] 20 mg PO DAILY 10/22/16 [History] Furosemide [Lasix] 20 mg PO DAILY PRN 10/22/16 [History] Glucosamine/D3/Boswellia Teena [Osteo Bi-Flex Tablet] 1 tab PO DAILY 10/22/16 [ History] LORazepam [Ativan] 1 mg PO TID PRN 10/22/16 [History] Lansoprazole [Prevacid] 30 mg PO DAILY 10/22/16 [History] Lidocaine Patch [Lidoderm 5% patch] 1 patch TP DAILY 10/22/16 [History] Potassium Chloride [K-Tab ER] 20 meq PO DAILY 10/22/16 [History] Simvastatin [Zocor] 20 mg PO DAILY 10/22/16 [History] Levofloxacin [Levaquin] 750 mg PO DAILY #4 tablet 10/24/16 [Rx] Allergies/Adverse Reactions: Allergies meloxicam Allergy (Verified 10/22/16 17:34) Rash Procedures/tests Complete & Pending: Procedures Performed prior 72 hours Category Date Time Status EV echocardiogram Routine Y 10/23/16 17:19 Completed Date of admission: 10/22/16 17:06 Primary care physician: Serjio Engel Jr, MD Discharging clinician: Addy Aguirre Anticipated date of discharge: 10/24/16 - Patient Status Disposition: Home, Self-Care Condition: Good Functional capacity at discharge: independent ambulation Overall status at discharge: patient is progressing back to baseline - Discharge Instructions Instructions: Levofloxacin (By mouth), Hiatal Hernia (DC), Hiatal Hernia (GEN) , Community-acquired Pneumonia (DC), Community-acquired Pneumonia (GEN) Follow Up With: Serjio Engel Jr, MD [Primary Care Provider] - (Follow up within a week, office will contact patient with time and date of appointment.) Additional Instructions: Please take 4 more days of levofloxacin 750 mg by mouth daily to finish total 7- day course of antibiotic therapy. Please follow up with your primary care physician Dr. Engel within a week regarding your hospitalization for pneumonia and further work-up of your significant hiatal hernia. Please get the ordered lab done to check your white blood cell count before your appointment with Dr. Engel. - Diet and Activity Activity: increase activity as tolerated Diet: low fat, low cholesterol, low salt diet Hospital course: Ms. Landin is a 71 year old female with COPD, GERD, non-Hodgkin's lymphoma s/p chemotherapy and history of DVT s/p [place] filter. Patient presented with 2- day history of dyspnea, productive cough and fever. In ED, patient was noted to have fever, tachycardia and leukocytosis. Chest CTA found no evidence of PE but new patchy heterogeneous & ground-glass nodules throughout the left upper and lower lobes suggestive of pneumonitis. Patient was started on IV ceftriaxone & azithromycin and admitted on 10/24/16 for pneumonia. Patient significantly improves since admission with WBC decreased from 19.5 to 15.3 on 10/24. Patient reports no significant shortness of breath and minimal cough. Patient likes to go home and states she can manage at home. Given patient is breath well and remains hemodynamically stable, will discharge patient home with 4 more days of levofloxacin 750 mg PO daily to finish total 7-day course of antibiotic therapy. Patient will follow up with her PCP Dr. Engel within a week regarding your hospitalization for pneumonia and further work-up of your significant hiatal hernia, which is showed on chest CTA and likely also contribute to her shortness of breath on admission. Patient is instructed to get ordered lab done to check white blood cell count before her appointment with Dr. Engel. - Time Spent with Patient Total time spent providing and/or coordinating discharge services: Greater than 30 minutes - Constitutional Vitals: Temp Pulse Resp BP Pulse Ox 97.5 F L 74 15 128/61 93 10/24/16 10:59 10/24/16 10:59 10/24/16 10:59 10/24/16 10:59 10/24/16 10:59 General appearance: Present: cooperative, A&O X 3, answers questions appropriately - Head Head exam: Present: atraumatic, normocephalic - Eye Eye exam: Present: EOMI, PERRL, conjuntiva pink, sclera anicteric - Neck Neck exam general surgery: Present: supple, trachea midline. Absent: lymphadenopathy - Respiratory Respiratory exam: Present: CTAB. Absent: accessory muscle use, rales, rhonchi, wheezes - Cardiovascular Cardiovascular exam: Present: RRR, +S1, +S2. Absent: diastolic murmur, gallop, rubs, systolic murmur - GI/Abdominal GI/Abdominal exam: Present: normal bowel sounds, soft, no peritoneal signs. Absent: distended, tenderness - Extremities Exam Extremities exam: Present: warm, radial pulses palpable and symetrical. Absent : calf tenderness, cyanotic, pedal edema - Neurological Exam Neurological exam: Present: CN II-XII intact, oriented X3, no focal deficits. Absent: pronater drift, facial droop, speech deficit - Skin Skin exam: Present: dry, intact, warm <Vasquez Han - Last Filed: 10/24/16 14:47> Date of Encounter: 10/24/16 - Discharge Diagnosis (1) Acute respiratory failure with hypoxia Priority: Primary Status: Resolved (2) Pneumonia Priority: Primary Status: Acute Qualifiers: Pneumonia type: aspiration pneumonia Aspiration pneumonia type: due to gastric secretions Laterality: left Lung location: unspecified part of lung Qualified Code(s): J69.0 - Pneumonitis due to inhalation of food and vomit (3) COPD (chronic obstructive pulmonary disease) Priority: Secondary Status: Chronic Qualifiers: COPD type: unspecified COPD Qualified Code(s): J44.9 - Chronic obstructive pulmonary disease, unspecified (4) Anemia Priority: Secondary Status: Acute Qualifiers: Anemia type: unspecified type Qualified Code(s): D64.9 - Anemia, unspecified (5) Hiatal hernia Priority: Secondary Status: Acute (6) History of non-Hodgkin's lymphoma Priority: Secondary Status: Chronic (7) History of DVT (deep vein thrombosis) Priority: Secondary Status: Chronic Procedures/tests Complete & Pending: Procedures Performed prior 72 hours Category Date Time Status EV echocardiogram Routine Y 10/23/16 17:19 Completed Date of admission: 10/22/16 17:06 Primary care physician: Serjio Engel Jr, MD Hospital course: Ms. Landin is a 71 year old female - Time Spent with Patient Total time spent providing and/or coordinating discharge services: 38min - Constitutional Vitals: Temp Pulse Resp BP Pulse Ox 97.5 F L 74 15 128/61 93 10/24/16 10:59 10/24/16 10:59 10/24/16 10:59 10/24/16 10:59 10/24/16 10:59 - Attending Attestation I examined this patient and my medical decision-making was reviewed with the Resident Physician on 10/24/16. I agree with the documented findings, disposition and treatment plan as described except to the extent set forth below. Ms. Landin is doing much better today. She has minimal cough. No fever. WBC has come down some. She is on no oxygen. Exam Alert. Comfortable Heart reg Lungs with rales L base No edema Plan D/C today PO Levaquin CBC this week Follow up with PCP.
[2016-10-26 10:44] LABS: MMA (VIT B12 STATUS) 0.5 umol/L (0.00-0.40)
== END 2016-10-24 14:30 | disposition home or self-care (01) | DRG 178 ==
LOC: 2NENU 13:56 → EMEROO 13:56 → 2NENU 18:34
PROVIDERS: ADMIT Nurse Practitioner Acute Care; ATTEND Internal Medicine

== ENCOUNTER 2017-04-14 13:27 | Inpatient (IN) ==
[2017-04-14 14:18] LABS: Basophils % 0.3 %; Hematocrit 35.4 % (35.3-44.9); Hemoglobin 11.6 g/dL (11.5-15.4); Immature Granulocytes % 0.3 % (0-4); Lymphocytes # 2.2 K/mcL (0.6-4.6); Mean Corpuscular HGB Conc 32.8 g/dL (31.6-35.5); Mean Corpuscular Hemoglobin 33.3 pg (28.0-33.3); Mean Corpuscular Volume 101.7 fL (83.0-100.0); Mean Platelet Volume 9.6 fL (9.4-12.4); Monocytes # 0.7 K/mcL (0.0-1.3); Monocytes % 4.5 %; Neutrophils # 12.6 K/mcL (1.6-8.9); Platelet Count 200 K/mcL (140-400); Red Blood Count 3.48 M/mcL (3.82-4.97); Red Cell Distribution Width 13.9 % (11.5-14.5); Segmented Neutrophils % 80.9 %
[2017-04-14 14:30] LABS: BUN/Creatinine Ratio 17 (6-26); Blood Urea Nitrogen 16 mg/dL (7-20); Calcium 9.6 mg/dL (8.6-10.8); Carbon Dioxide 26 mEq/L (19-29); Chloride 104 mEq/L (98-109); Glucose 110 mg/dL (70-99); Osmolality,Calculated 288 (280-300); Potassium 3.9 mEq/L (3.5-4.5); Sodium 138 mEq/L (136-145); eGFR For African Americans > 60 (> 60); eGFR For Non-African Americans 58 (> 60)
--- NOTE | 2017-04-14 15:43 | Emergency Department Note ---
Disposition Clinical Impression: Pneumonia Qualifiers: Pneumonia type: due to unspecified organism Laterality: left Lung location: lower lobe of lung Qualified Code(s): J18.1 - Lobar pneumonia, unspecified organism Disposition: Admitted As Inpatient Condition: Fair Time of Disposition: 17:03 General Adult HPI - General Chief complaint: ED Fever Stated complaint: fever/chills, vomiting Time Seen by Provider: 04/14/17 15:11 Source: patient Mode of arrival: ambulatory Limitations: no limitations Nursing Notes Reviewed: Yes Vital Signs Reviewed: Yes - History of Present Illness HPI Narrative: Patient is a 72-year-old female with a past medical history of pneumonia, lymphoma having undergone a splenectomy, arthritis and hypercholesterol presenting with a complaint of feeling feverish, cough, one episode of nausea and vomiting that started yesterday. The patient states that yesterday she was feeling weak all day and then overnight while sleeping she felt feverish and like she had chills and when she woke up this morning she had one episode of nonbilious nonbloody vomit. States her symptoms presented similar to how she presented back in October 2016, when she was admitted to the hospital for pneumonia. She states she has also had a mild headache since arriving to the emergency department she states is not her worst headache of her life. She has not taken any medications. She is not nauseous at this time. She states she has had nasal congestion for the past week. She denies any sick contacts. Pain Scale: 3 - Related Data Home Medications Medication Instructions Recorded Confirmed Albuterol Sulfate [Proair Hfa] 2 puff IH Q4H PRN 10/22/16 04/14/17 Amitriptyline [Elavil] 10 mg PO HS 10/22/16 04/14/17 Aspirin [Lo-Dose Aspirin EC] 81 mg PO DAILY 10/22/16 04/14/17 Cholecalciferol (D-3) [Vitamin D] 1,000 unit PO DAILY 10/22/16 04/14/17 Docusate Sodium [Colace] 100 mg PO DAILY 10/22/16 04/14/17 Escitalopram [Lexapro] 20 mg PO DAILY 10/22/16 04/14/17 Furosemide [Lasix] 20 mg PO DAILY PRN 10/22/16 04/14/17 LORazepam [Ativan] 1 mg PO TID PRN 10/22/16 04/14/17 Lansoprazole [Prevacid] 30 mg PO DAILY 10/22/16 04/14/17 Lidocaine Patch [Lidoderm 5% patch] 1 patch TP DAILY 10/22/16 04/14/17 Potassium Chloride [K-Tab ER] 20 meq PO DAILY 10/22/16 04/14/17 Simvastatin [Zocor] 20 mg PO DAILY 10/22/16 04/14/17 Allergies Allergy/AdvReac Type Severity Reaction Status Date / Time meloxicam Allergy Rash Verified 04/14/17 13:41 Review of Systems: Constitutional: Positive fever and weakness Vision: No vision changes ENT: Positive for rhinorrhea Respiratory: Positive for non-productive cough and mild shortness of breath Cardiac: No chest pain or palpitations Allergic: No allergies : No dysuria GI: Positive for one episode of nausea and vomiting, no diarrhea Hematologic: No bruising Dermatologic: No skin rash Musculoskeletal: No pain in the extremities Neuro: No numbness of the extremities. Positive for typical headache All systems ED: reviewed and negative except as stated. Past Medical History - Past Medical History Attestation: Yes The following information was validated with the patient. Medical history: Reports: arthritis, cancer, GERD Surgical history: Reports: colectomy, hysterectomy, splenectomy Psychiatric history: Reports: no psych history - Social History Smoking Status: Former smoker Smokeless Tobacco Status: No Alcohol use: Reports: none Drug use: Reports: none Physical Exam CONSTITUTIONAL: Alert and oriented X3, well-nourished, well appearing, in no apparent distress. Patient is febrile, regular respiratory rate of 18, tachycardic on arrival at 103, however now in low 90's, and oxygen saturation ranges from 92-94% on room air. HEAD: Normocephalic; atraumatic. EYES: PERRL, no scleral icterus. NOSE: The nose is normal in appearance without rhinorrhea RESP: Patient has mild inspiratory and expiratory wheezing and rales in the left base. CARD: Tachycardic rate, regular rhythm, without murmurs, rub or gallop ABD: Non-distended; non-tender, soft,without rigidity, rebound or guarding SKIN: Normal for age and race; warm and dry; no apparent lesions Ext: Mild +1 pitting edema bilaterally, patient states this is normal for her. - General General appearance: alert, in no apparent distress Course Course Narrative: Patient is a 72-year-old female with a past medical history of GERD, lymphoma and history of splenectomy and admission for pneumonia back in October 2016 present with a complaint of fevers, chills, one episode of nausea and vomiting that she states is similar to when she had pneumonia back in October. Physical exam she is febrile she is tachycardic on arrival however since being in the room. She her heart rate is around the 90s. She has been satting around 94% on room air. There is ordered basic labs on patient also perform a chest x-ray. - Reevaluation(s) Reevaluation #1: Patient's labs showed a leukocytosis and a chest x-ray shows a retrocardiac pneumonia. Did a walking trial with the patient and the patient was able to walk around in his apartment maintain oxygen sat 95%. Her vital signs heart rate has remained in the low 90s blood pressure stable and respirators at 16 and she is still satting T 94 and 96% on room air. I discussed with the patient admission versus antibiotics at home the patient states she would prefer to be admitted for condition daily living at home by herself and her family being far away. I discussed with the patient's I agree with that plan I will call the hospitalist for admission. Time: 16:40 Reevaluation #2: Upon arrival patient's vital signs noted in triage she was tachycardic and she was febrile, however in the emergency department the patient heart rate has remained the low 90s she has been satting between 94 and 96% and we performed a walking test with the patient which she remained at 94-96% saturation on room air. The patient was initiated on antibiotics and also given 500 mL of normal saline fluid. I did not initiate a sepsis protocol due to the patient being alert and oriented 3 and her vital signs stabilizing when she is at rest in bed. Treated her fever with Tylenol. I discussed this patient's case with Dr. Gilbert and he agrees to accept this patient. Patient's CURB-65 score is positive only for age for greater than 65. However, due to lack of resources at home and patient feeling safer with being admitted that is the plan. Time: 17:27 Vital Signs Temperature 100.5 F H 04/14/17 13:37 Pulse Rate 103 04/14/17 13:37 Respiratory Rate 18 04/14/17 13:37 Blood Pressure 136/71 04/14/17 13:37 O2 Sat by Pulse Oximetry 94 04/14/17 13:37 Temperature 97.9 F 04/15/17 11:00 Pulse Rate 68 04/15/17 11:00 Respiratory Rate 15 04/15/17 11:00 Blood Pressure 140/64 04/15/17 11:00 O2 Sat by Pulse Oximetry 94 04/15/17 11:00 Oxygen Delivery Oxygen Delivery Room Air Medical Decision Making - Medical Records Medical records reviewed: Yes I reviewed the patient's medical records. - Lab Data Lab results reviewed: Yes I reviewed the patient's lab results. Result diagrams: 04/15/17 03:43 04/15/17 03:43 Lab Results 04/14/17 04/14/17 04/14/17 Range/Units 14:13 14:13 19:58 WBC 15.6 H (4.3-11.1) K/mcL RBC 3.48 L (3.82-4.97) M/mcL Hgb 11.6 (11.5-15.4) g/dL Hct 35.4 (35.3-44.9) % MCV 101.7 H (83.0-100.0) fL MCH 33.3 (28.0-33.3) pg MCHC 32.8 (31.6-35.5) g/dL RDW 13.9 (11.5-14.5) % Plt Count 200 (140-400) K/mcL MPV 9.6 (9.4-12.4) fL Immature Gran % 0.3 (0-4) % Seg Neutrophils % 80.9 % Lymphocytes % 14.0 % Monocytes % 4.5 % Eosinophils % 0.0 % Basophils % 0.3 % Neutrophils # 12.6 H (1.6-8.9) K/mcL Lymphocytes # 2.2 (0.6-4.6) K/mcL Monocytes # 0.7 (0.0-1.3) K/mcL Eosinophils # 0.0 (0.0-0.6) K/mcL Basophils # 0.0 (0.0-0.2) K/mcL Sodium 138 (136-145) mEq/L Potassium 3.9 (3.5-4.5) mEq/L Chloride 104 (98-109) mEq/L Carbon Dioxide 26 (19-29) mEq/L BUN 16 (7-20) mg/dL Creatinine 0.94 (0.57-1.11) mg/dL Est GFR ( Amer) > 60 (> 60) Est GFR (Non-Af Amer) 58 L (> 60) BUN/Creatinine Ratio 17 (6-26) Glucose 110 H (70-99) mg/dL Calculated Osmolality 288 (280-300) Calcium 9.6 (8.6-10.8) mg/dL Urine Color Yellow (Yellow) Urine Clarity Clear (Clear) Urine pH 7.0 (5.0-8.0) pH Units Ur Specific [place] 1.007 L (1.010-1.025) Urine Protein Negative (Neg-Trace) mg/dL Urine Glucose (UA) Normal (Normal) mg/dL Urine Ketones Negative (Negative) mg/dL Urine Blood Negative (Negative) Urine Nitrite Negative (Negative) Urine Bilirubin Negative (Negative) Urine Urobilinogen Normal (Normal) mg/dL Ur Leukocyte Esterase Trace H (Negative) Urine Microscopic RBC 0-3 (0-3) per hpf Urine Microscopic WBC 0-3 (0-3) per hpf Ur Squamous Epith Cells Moderate H (None-Few) per lpf Urine Bacteria None Seen (None-Few) per hpf Hyaline Casts None Seen (None-Few) per lpf Ur Culture Indicated? YES A (NO) - Radiology Data Radiology results reviewed: Yes I reviewed the patient's radiology results. Chest X-Ray 04/14/17 13:52 IMPRESSION: Small retrocardiac opacity compatible with pneumonia or atelectasis D/ / Fabian Ta MD / Fabian Ta MD Interpreting Provider: Fabian Ta MD
[2017-04-14] MEDS ORDERED: levoFLOXacin 750 MG TABLET PO ONE (15:45)
[2017-04-14] MEDS ORDERED: 0.9 % Sodium Chloride 500 ML IVC ONE (15:50)
--- NOTE | 2017-04-14 15:58 | Emergency Department Note ---
START Narrative - START START: I examined this patient and my medical decision-making was reviewed with the Resident Physician. I agree with the documented findings, disposition and treatment plan as described except to the extent set forth below. Patient was independently seen and evaluated by myself. Patient was seen with the emergency medicine resident Yandel Moreno. Please see copy of her notes for details of this ED encounter management and disposition. Briefly: 72-year-old female presents ambulatory former smoker cough and fever some mild shortness of breath. She has mild wheezing. Chest x-ray read as left retrocardiac infiltrate likely pneumonia as she does have elevated white count of 15 she was febrile at 100.3 tachycardic upon presentation 103 and slightly hypoxic at 94 and room air. Patient could be road tested here and will make a disposition or decision whether to admit discharge home with appropriate antibiotics. Disposition pending.
[2017-04-14 20:08] LABS: Bilirubin,Urine Negative (Negative); Blood,Urine Negative (Negative); Clarity,Urine Clear (Clear); Color,Urine Yellow (Yellow); Glucose,Urine (UA) Normal (Normal); Ketones,Urine Negative (Negative); Leukocyte Esterase,Urine Trace (Negative); Nitrite,Urine Negative (Negative); Protein,Urine Negative (Neg-Trace); Specific Gravity,Urine 1.007 (1.010-1.025); Urobilinogen,Urine Normal (Normal)
[2017-04-14 20:11] LABS: Bacteria,Urine None Seen per hpf (None-Few); Hyaline Casts,Urine None Seen per lpf (None-Few); RBC,Urine 0-3 per hpf (0-3); Squamous Epithelial Cell,Urine Moderate per lpf (None-Few); WBC,Urine 0-3 per hpf (0-3)
[2017-04-14] MEDS ORDERED: Acetaminophen 325 MG TABLET PO PRN (20:55)
[2017-04-14] MEDS ORDERED: *HR* HYDROcodone/Acet 5/325 mg TABLET PO PRN (20:55)
[2017-04-14] MEDS ORDERED: Naloxone 0.4 MG/ML INJ IVP PRN (20:55)
[2017-04-14] MEDS ORDERED: Ondansetron 4 MG/2 ML VIAL IVP PRN (20:55)
[2017-04-14] MEDS ORDERED: Ipratropium/Albuterol Neb 3 ML IH PRN (21:11)
[2017-04-14] MEDS ORDERED: Famotidine 20 MG TABLET PO SCH (21:15)
--- NOTE | 2017-04-14 21:16 | Internal Med History&Physical ---
Date of Encounter: 04/14/17 Time of Encounter: 20:00 Assessment and Plan (1) SIRS (systemic inflammatory response syndrome) Current visit: Yes Status: Acute Patient presents with SIRS criteria of WBC of 15.6 and HR of 103 bpm on admission. 2-View CXR today shows small retrocardiac opacity compatible with pneumonia or atelectasis. Pt. reports previous fever at home. Lactic acid ordered. Will repeat. Blood cultures x2. Urine culture ordered. IV 0.9 NS bolus in ED to be followed by 100 mL/HR. IVPB levaquin 750 daily for infection coverage. Will adjust abx coverage based on culture results. Pt. at high risk for sepsis and further morbidity based on current sx, hx of pneumonia, and risk factors. Inpatient. (2) Pneumonia Current visit: Yes Status: Acute Pt. presents with fever, chills, nausea, vomiting, abdominal pain, and shortness of breath since yesterday accompanied by a feeling of weakness. She states that these sx are similar to her hospitalization in October for pneumonia. IVPB levaquin administered in ED and will continue 750 mg daily for infection coverage. DuoNebs Q6 PRN. Pt. SpO2 currently >94% on RA. Will add supplemental O2 if SpO2 < 92%. Monitor pt. and f/u labs for signs of increasing infection, cardiac, and/or respiratory distress. Qualifiers: Pneumonia type: due to unspecified organism Laterality: left Lung location: lower lobe of lung Qualified Code(s): J18.1 - Lobar pneumonia, unspecified organism (3) Dyspnea Current visit: Yes Status: Acute Pt. reports acute SOB r/t current sx but SpO2 >94% on RA. DuoNebs Q6 PRN. Will add supplemental O2 if pt. becomes dyspneic and/or SpO2 <92%. Qualifiers: Dyspnea type: shortness of breath Qualified Code(s): R06.02 - Shortness of breath; R06.00 - Dyspnea, unspecified; R06.01 - Orthopnea (4) GERD (gastroesophageal reflux disease) Current visit: Yes Status: Chronic Hx of chronic GERD. Pt. currently takes Prevacid but states that her GERD is uncontrolled. Will give PO Zantac oral solution 75 mg BID. Qualifiers: Esophagitis presence: esophagitis presence not specified Qualified Code(s) : K21.9 - Gastro-esophageal reflux disease without esophagitis (5) Arthritis Current visit: Yes Status: Chronic Hx of chronic arthritis. Stair-step pain medication for pain management. (6) HLD (hyperlipidemia) Current visit: Yes Status: Chronic Hx of chronic HLD. Lipid panel in a.m. labs. Continue simvastatin. Qualifiers: Hyperlipidemia type: pure hypercholesterolemia Qualified Code(s): E78.00 - Pure hypercholesterolemia, unspecified; E78.0 - Pure hypercholesterolemia (7) DVT prophylaxis Current visit: Yes Status: Acute Heparin 5,000 units SQ Q8 for DVT prophylaxis. Internal Medicine - H&P: HPI Chief complaint: SOB/N/V/Fever Admitted From: Emergency Dept Plans for Post Hospital Care: Home History of present illness: Ms. Landin is a 72 year old female with medical hx of arthritis, GERD, and previous large B-cell lymphoma (resolved) presents from the ED with chief complaint of fever, chills, nausea, vomiting, abdominal pain, and shortness of breath since yesterday accompanied by a feeling of weakness. Pt. reports she has a hiatal hernia and feels that her GERD is uncontrolled. Patient reports vomiting was one episode this morning and was non-bloody and nonbilious. Patient had previous hospitalization in October for pneumonia which she states were similar symptoms. Patient denies any sick contacts and states she is a former smoker smoking one quarter pack per day and quitting in 2005. Patient denies recent illness, recent sick contacts, diarrhea, chest pain, palpitations, changes in vision, cough, numbness, tingling, unusual bleeding, dizziness, lightheadedness, pre-syncope, or syncope. Past Med Surg Social Fam HX - Past Medical History Source: patient, old records reviewed Medical history: arthritis, cancer (Diffuse large B-cell lymphoma), GERD Psychiatric history: no psych history - Past Surgical History Surgical History: colectomy, hysterectomy, splenectomy - Social History Smoking Status: Former smoker Packs per day: 06/08 PPD - Reports quitting in 2005 Smokeless Tobacco Status: No Alcohol use: none Drug use: none Current living situation: Home - Independent Activity Level: Independent ambulation Recent Out of Country Travel Within the Last 8 Weeks: No Exposure or Possible Exposure to Illness During Travel: No - Family History Father Race: Family Member Ethnicity: Non- Living Status: Age at : 47 Cause of : MD Hx Family Cardiac Disorders: Yes (MD) Mother Race: Family Member Ethnicity: Non- Living Status: Age at : 66 Cause of : Pancreatic cancer Hx Family Cancer: Yes (Pancreatic) Sister Race: Family Member Ethnicity: Non- Living Status: Still Living Hx Family Cardiac Disorders: Yes (CAD) Hx Family Cancer: Yes (Breast) Internal Medicine - H&P: Meds Albuterol Sulfate [Proair Hfa] 2 puff IH Q4H PRN 10/22/16 [History] Amitriptyline [Elavil] 10 mg PO HS 10/22/16 [History] Aspirin [Lo-Dose Aspirin EC] 81 mg PO DAILY 10/22/16 [History] Cholecalciferol (D-3) [Vitamin D] 1,000 unit PO DAILY 10/22/16 [History] Docusate Sodium [Colace] 100 mg PO DAILY 10/22/16 [History] Escitalopram [Lexapro] 20 mg PO DAILY 10/22/16 [History] Furosemide [Lasix] 20 mg PO DAILY PRN 10/22/16 [History] LORazepam [Ativan] 1 mg PO TID PRN 10/22/16 [History] Lansoprazole [Prevacid] 30 mg PO DAILY 10/22/16 [History] Lidocaine Patch [Lidoderm 5% patch] 1 patch TP DAILY 10/22/16 [History] Potassium Chloride [K-Tab ER] 20 meq PO DAILY 10/22/16 [History] Simvastatin [Zocor] 20 mg PO DAILY 10/22/16 [History] 3 Allergy/AdvReac Type Severity Reaction Status Date / Time meloxicam Allergy Rash Verified 04/14/17 13:41 All Systems PM: A 10-system review of systems was performed and is negative for pertinent findings except as documented above in the HPI. - Constitutional Constitutional: as per HPI, chills, fever(s), weakness, no night sweats - EENT Eyes: no change in vision, no discharge, no pain, no photophobia Ears: no ear discharge, no ear pain, no tinnitus Nose, mouth and throat: no dysphagia, no nasal discharge, no neck pain, no sore throat - Breasts Breasts: as per HPI - Cardiovascular Cardiovascular ROS IM: as per HPI, dyspnea, dyspnea on exertion, no chest pain, no diaphoresis, no lightheadedness, no palpitations, no syncope - Respiratory Respiratory: as per HPI, dyspnea, dyspnea on exertion - Gastrointestinal Gastrointestinal: as per HPI, abdominal pain, nausea, vomiting - Genitourinary Genitourinary: no change in urinary stream, no dysuria, no flank pain, no hematuria Menstruation: as per HPI, post hysterectomy - Musculoskeletal Musculoskeletal ROS IM: as per HPI, arthralgias, no numbness, no tingling - Integumentary Integumentary IM: no rash, no unusual bruising - Neurological Neurological ROS: no confusion, no convulsions, no focal weakness, no numbness, no tingling, no tremor(s) - Psychiatric Psychiatric: as per HPI - Endocrine Endocrine IM: as per HPI - Hematologic/Lymphatic Hematologic/Lymphatic: no easy bruising - Allergic/Immunologic Allergic/Immunologic: as per HPI - Constitutional Vitals: Temp Pulse Resp BP Pulse Ox 98.4 F 79 20 122/42 92 04/14/17 18:48 04/14/17 18:48 04/14/17 18:48 04/14/17 18:48 04/14/17 18:48 General appearance: Present: cooperative, A&O X 3, pleasant, no acute distress, obese, answers questions appropriately - Head Head exam: Present: atraumatic, normal inspection, normocephalic - Eye Eye exam: Present: PERRL, conjuntiva pink, sclera anicteric Pupils: Present: PERRL - ENT ENT exam: Present: normal exam, normal external ear exam - Neck Neck exam general surgery: Present: normal inspection, supple, trachea midline. Absent: lymphadenopathy - Respiratory Respiratory exam: Present: CTAB. Absent: accessory muscle use, rales, rhonchi, wheezes - Cardiovascular Cardiovascular exam: Present: RRR, +S1, +S2. Absent: diastolic murmur, gallop, rubs, systolic murmur - GI/Abdominal GI/Abdominal exam: Present: normal bowel sounds, soft, no peritoneal signs. Absent: distended, tenderness - Rectal Rectal exam: Present: deferred - Additional comments: exam deferred. - Extremities Exam Extremities exam: Present: warm, radial pulses palpable and symmetrical. Absent : calf tenderness, cyanotic, pedal edema - Back Exam Back exam: Present: normal inspection - Neurological Exam Neurological exam: Present: CN II-XII intact, oriented X3, no focal deficits. Absent: pronater drift, facial droop, speech deficit - Psychiatric Psychiatric exam: Present: normal affect, normal mood - Skin Skin exam: Present: dry, intact Internal Med - H&P Results - Labs CBC & Chem 7: 04/14/17 14:13 04/14/17 14:13 Labs: Urine 04/14/17 Range/Units 19:58 Urine Color Yellow (Yellow) Urine Clarity Clear (Clear) Urine pH 7.0 (5.0-8.0) pH Units Ur Specific [place] 1.007 L (1.010-1.025) Urine Protein Negative (Neg-Trace) mg/dL Urine Glucose (UA) Normal (Normal) mg/dL - Diagnostic Studies Chest x-ray Additional comments: Impressions Chest X-Ray 04/14/17 13:52 IMPRESSION: Small retrocardiac opacity compatible with pneumonia or atelectasis D/ / Fabian Ta MD / Fabian Ta MD Interpreting Provider: Fabian Ta MD
[2017-04-14] MEDS: 0.9 % Sodium Chloride 1,000 ML IVC SCH (21:59)
[2017-04-14] MEDS: Famotidine 20 MG TABLET PO SCH (22:07)
[2017-04-14] MEDS: *HR* LORazepam 1 MG TABLET PO PRN (22:10)
[2017-04-15] MEDS: *HR* Heparin 5,000 UNIT/ML VIAL SQ SCH ×3 (00:06→17:04)
--- NOTE | 2017-04-15 01:22 | Event Note ---
Date of Encounter: 04/14/17 Time of Encounter: 22:00 Discussed with WAYNE and agree with assessment and plan. Will treat patient for community acquired pneumonia with IV Levaquin. Patient will follow up with GI as an outpatient for uncontrolled GERD.
[2017-04-15 04:44] LABS: Basophils # 0.1 K/mcL (0.0-0.2); Basophils % 0.3 %; Immature Granulocytes % 0.4 % (0-4); Lymphocytes # 3.7 K/mcL (0.6-4.6); Lymphocytes % 19.5 %; Mean Corpuscular HGB Conc 32.3 g/dL (31.6-35.5); Mean Corpuscular Hemoglobin 33.3 pg (28.0-33.3); Mean Corpuscular Volume 103.3 fL (83.0-100.0); Mean Platelet Volume 10.4 fL (9.4-12.4); Monocytes % 5.3 %; Neutrophils # 14.3 K/mcL (1.6-8.9); Platelet Count 188 K/mcL (140-400); Red Cell Distribution Width 14.2 % (11.5-14.5); Segmented Neutrophils % 74.5 %
[2017-04-15 04:51] LABS: Hemoglobin A1C 5.2 %
[2017-04-15 04:58] LABS: Alanine Aminotransferase 17 Units/L (0-55); Albumin 3.1 g/dL (3.5-5.0); Albumin/Globulin Ratio 0.9 (1.1-2.2); Alkaline Phosphatase 39 Units/L (38-126); Aspartate Amino Transferase 23 Units/L (5-34); BUN/Creatinine Ratio 18 (6-26); Bilirubin,Total 0.7 mg/dL (0.2-1.2); Blood Urea Nitrogen 15 mg/dL (7-20); Calcium 8.5 mg/dL (8.6-10.8); Carbon Dioxide 23 mEq/L (19-29); Chloride 108 mEq/L (98-109); Chol/HDL Ratio 2.5 (0-4.9); Cholesterol 132 mg/dL (< 200); Globulin 3.3 g/dL (2.4-3.5); Glucose 96 mg/dL (70-99); HDL Cholesterol 53 mg/dL (40-59); LDL Cholesterol,Calculated 67 mg/dL (0-99); Magnesium 1.6 mg/dL (1.6-2.6); Osmolality,Calculated 291 (280-300); Potassium 3.8 mEq/L (3.5-4.5); Sodium 140 mEq/L (136-145); Total Protein 6.4 g/dL (6.0-8.3); Triglycerides 58 mg/dL (< 150); eGFR For African Americans > 60 (> 60); eGFR For Non-African Americans > 60 (> 60)
[2017-04-15] MEDS: Aspirin Enteric Coated 81 MG Tablet PO SCH (08:55)
[2017-04-15] MEDS: Cholecalciferol (D-3) 1,000 UNIT TABLET PO SCH (08:55)
[2017-04-15] MEDS: Famotidine 20 MG TABLET PO SCH (08:55)
[2017-04-15] MEDS: 0.9 % Sodium Chloride 1,000 ML IVC SCH (09:32)
--- NOTE | 2017-04-15 13:39 | Internal Med Progress Note ---
Date of Encounter: 04/15/17 Time of Encounter: 09:00 - Assessment and plan (1) Pneumonia Current Visit: Yes Status: Acute Assessment and plan: Community acquired pneumonia. Has fever and shortness of breath and nausea on admission. Symptoms improved now. - Continue Levaquin IV. - Continue monitor patient for leukocytosis. Qualifiers: Pneumonia type: due to Pneumococcus Laterality: left Lung location: lower lobe of lung Qualified Code(s): J13 - Pneumonia due to Streptococcus pneumoniae (2) GERD (gastroesophageal reflux disease) Current Visit: Yes Status: Chronic Assessment and plan: Continue home medications Qualifiers: Esophagitis presence: esophagitis presence not specified Qualified Code(s) : K21.9 - Gastro-esophageal reflux disease without esophagitis (3) DVT prophylaxis Current Visit: Yes Status: Acute Assessment and plan: Heparin subcutaneously - Time Spent With Patient 25 - 35 minutes - Subjective Interval history: Patient is a 72-year-old female admitted for community acquired pneumonia. Past medical history is significant for B-cell lymphoma, GERD. Patient was seen and examined. No further fever. No shortness of breath or nausea vomiting. Vitals are stable. Oxygen saturation 94 in room air. WBC still high. We will continue Levaquin for CAP. - Constitutional Vitals: Temp Pulse Resp BP Pulse Ox 97.9 F 68 15 140/64 94 04/15/17 11:00 04/15/17 11:00 04/15/17 11:00 04/15/17 11:00 04/15/17 11:00 General appearance: Present: cooperative, A&O X 3, pleasant, no acute distress, obese, answers questions appropriately - Head Head exam: Present: atraumatic, normocephalic - Eye Eye exam: Present: PERRL, conjuntiva pink, sclera anicteric Pupils: Present: PERRL - Neck Neck exam general surgery: Present: supple, trachea midline. Absent: lymphadenopathy - Respiratory Respiratory exam: Present: CTAB. Absent: accessory muscle use, rales, rhonchi, wheezes - Cardiovascular Cardiovascular exam: Present: RRR, +S1, +S2. Absent: diastolic murmur, gallop, rubs, systolic murmur - GI/Abdominal GI/Abdominal exam: Present: normal bowel sounds, soft, no peritoneal signs. Absent: distended, tenderness - Extremities Exam Extremities exam: Present: warm, radial pulses palpable and symmetrical. Absent : calf tenderness, cyanotic, pedal edema - Neurological Exam Neurological exam: Present: CN II-XII intact, oriented X3, no focal deficits. Absent: pronater drift, facial droop, speech deficit - Skin Skin exam: Present: dry, intact Internal Medicine: Result - Labs CBC & Chem 7: 04/15/17 03:43 04/15/17 03:43 Labs: Short CBC 04/15/17 Range/Units 03:43 WBC 19.2 H (4.3-11.1) K/mcL Hgb 10.0 L D (11.5-15.4) g/dL Hct 31.0 L (35.3-44.9) % Plt Count 188 (140-400) K/mcL Neutrophils # 14.3 H (1.6-8.9) K/mcL BMP 04/15/17 03:43 Sodium 140 Potassium 3.8 Chloride 108 Carbon Dioxide 23 BUN 15 Creatinine 0.84 Glucose 96 Calcium 8.5 L Liver Function 04/15/17 Range/Units 03:43 Total Bilirubin 0.7 (0.2-1.2) mg/dL AST 23 (5-34) Units/L ALT 17 (0-55) Units/L Alkaline Phosphatase 39 (38-126) Units/L Albumin 3.1 L (3.5-5.0) g/dL Consult Discharge Plan - Plan Referrals: Serjio Engel Jr, MD [Primary Care Provider] -
[2017-04-15] MEDS: *HR* LORazepam 1 MG TABLET PO PRN (20:47)
[2017-04-16] MEDS: *HR* Heparin 5,000 UNIT/ML VIAL SQ SCH ×3 (00:16→16:36)
[2017-04-16 03:44] LABS: Basophils % 0.3 %; Hematocrit 29.3 % (35.3-44.9); Hemoglobin 9.3 g/dL (11.5-15.4); Immature Granulocytes % 0.2 % (0-4); Lymphocytes # 4.5 K/mcL (0.6-4.6); Lymphocytes % 36.7 %; Mean Corpuscular HGB Conc 31.7 g/dL (31.6-35.5); Mean Corpuscular Hemoglobin 33.5 pg (28.0-33.3); Mean Corpuscular Volume 105.4 fL (83.0-100.0); Mean Platelet Volume 10.3 fL (9.4-12.4); Monocytes # 0.9 K/mcL (0.0-1.3); Monocytes % 7.7 %; Neutrophils # 6.7 K/mcL (1.6-8.9); Platelet Count 181 K/mcL (140-400); Red Blood Count 2.78 M/mcL (3.82-4.97); Red Cell Distribution Width 14.3 % (11.5-14.5); Segmented Neutrophils % 55.1 %
[2017-04-16 04:00] LABS: Alanine Aminotransferase 15 Units/L (0-55); Albumin 3.2 g/dL (3.5-5.0); Albumin/Globulin Ratio 0.9 (1.1-2.2); Alkaline Phosphatase 43 Units/L (38-126); Aspartate Amino Transferase 25 Units/L (5-34); BUN/Creatinine Ratio 17 (6-26); Bilirubin,Total 0.4 mg/dL (0.2-1.2); Blood Urea Nitrogen 17 mg/dL (7-20); Carbon Dioxide 25 mEq/L (19-29); Chloride 108 mEq/L (98-109); Globulin 3.4 g/dL (2.4-3.5); Glucose 95 mg/dL (70-99); Osmolality,Calculated 289 (280-300); Potassium 3.8 mEq/L (3.5-4.5); Sodium 139 mEq/L (136-145); Total Protein 6.6 g/dL (6.0-8.3); eGFR For African Americans > 60 (> 60); eGFR For Non-African Americans 55 (> 60)
[2017-04-16] MEDS: Cholecalciferol (D-3) 1,000 UNIT TABLET PO SCH (08:31)
[2017-04-16] MEDS: Famotidine 20 MG TABLET PO SCH (08:32)
[2017-04-16] MEDS: Aspirin Enteric Coated 81 MG Tablet PO SCH (08:32)
--- NOTE | 2017-04-16 11:23 | Internal Med Progress Note ---
Date of Encounter: 04/16/17 Time of Encounter: 09:00 - Assessment and plan (1) Pneumonia Current Visit: Yes Status: Acute Assessment and plan: Community acquired pneumonia. Has fever and shortness of breath and nausea on admission. Symptoms improved now. - Continue Levaquin IV. - Continue monitor patient for leukocytosis. Qualifiers: Pneumonia type: due to Pneumococcus Laterality: left Lung location: lower lobe of lung Qualified Code(s): J13 - Pneumonia due to Streptococcus pneumoniae (2) GERD (gastroesophageal reflux disease) Current Visit: Yes Status: Chronic Assessment and plan: Continue home medications Qualifiers: Esophagitis presence: esophagitis presence not specified Qualified Code(s) : K21.9 - Gastro-esophageal reflux disease without esophagitis (3) DVT prophylaxis Current Visit: Yes Status: Acute Assessment and plan: Heparin subcutaneously - Time Spent With Patient 25 - 35 minutes - Subjective Interval history: Patient is a 72-year-old female admitted for community acquired pneumonia. Past medical history is significant for B-cell lymphoma, GERD. Patient was seen and examined. Pt states she feels better. No fever. No shortness of breath or nausea vomiting. Vitals are stable. Oxygen saturation 94 in room air. WBC trend down but still high. We will continue Levaquin for CAP. Plan to discharge home if condition remains stable. - Constitutional Vitals: Temp Pulse Resp BP Pulse Ox 97.9 F 63 15 139/62 92 04/16/17 07:01 04/16/17 07:01 04/16/17 07:01 04/16/17 07:01 04/16/17 08:00 General appearance: Present: cooperative, A&O X 3, pleasant, no acute distress, obese, answers questions appropriately - Head Head exam: Present: atraumatic, normocephalic - Eye Eye exam: Present: PERRL, conjuntiva pink, sclera anicteric Pupils: Present: PERRL - Neck Neck exam general surgery: Present: supple, trachea midline. Absent: lymphadenopathy - Respiratory Respiratory exam: Present: CTAB. Absent: accessory muscle use, rales, rhonchi, wheezes - Cardiovascular Cardiovascular exam: Present: RRR, +S1, +S2. Absent: diastolic murmur, gallop, rubs, systolic murmur - GI/Abdominal GI/Abdominal exam: Present: normal bowel sounds, soft, no peritoneal signs. Absent: distended, tenderness - Extremities Exam Extremities exam: Present: warm, radial pulses palpable and symmetrical. Absent : calf tenderness, cyanotic, pedal edema - Neurological Exam Neurological exam: Present: CN II-XII intact, oriented X3, no focal deficits. Absent: pronater drift, facial droop, speech deficit - Skin Skin exam: Present: dry, intact Internal Medicine: Result - Labs CBC & Chem 7: 04/16/17 03:27 04/16/17 03:27 Labs: Short CBC 04/16/17 Range/Units 03:27 WBC 12.1 H (4.3-11.1) K/mcL Hgb 9.3 L (11.5-15.4) g/dL Hct 29.3 L (35.3-44.9) % Plt Count 181 (140-400) K/mcL Neutrophils # 6.7 (1.6-8.9) K/mcL BMP 04/16/17 03:27 Sodium 139 Potassium 3.8 Chloride 108 Carbon Dioxide 25 BUN 17 Creatinine 0.99 Glucose 95 Calcium 9.0 Liver Function 04/16/17 Range/Units 03:27 Total Bilirubin 0.4 (0.2-1.2) mg/dL AST 25 (5-34) Units/L ALT 15 (0-55) Units/L Alkaline Phosphatase 43 (38-126) Units/L Albumin 3.2 L (3.5-5.0) g/dL Consult Discharge Plan - Plan Referrals: Serjio Engel Jr, MD [Primary Care Provider] -
[2017-04-16] MEDS ORDERED: Levofloxacin 750 MG/150 ML 750 MG/150 ML BAG IVPB SCH (16:00)
[2017-04-16] MEDS: *HR* LORazepam 1 MG TABLET PO PRN (20:33)
[2017-04-17] MEDS: *HR* Heparin 5,000 UNIT/ML VIAL SQ SCH ×2 (00:23→08:04)
[2017-04-17 04:35] LABS: Basophils % 0.4 %; Hematocrit 30.2 % (35.3-44.9); Hemoglobin 9.8 g/dL (11.5-15.4); Immature Granulocytes % 0.2 % (0-4); Lymphocytes % 41.6 %; Mean Corpuscular HGB Conc 32.5 g/dL (31.6-35.5); Mean Corpuscular Hemoglobin 33.3 pg (28.0-33.3); Mean Corpuscular Volume 102.7 fL (83.0-100.0); Mean Platelet Volume 10.5 fL (9.4-12.4); Monocytes # 0.8 K/mcL (0.0-1.3); Monocytes % 8.2 %; Neutrophils # 4.8 K/mcL (1.6-8.9); Nucleated Red Blood Cells 0.2 /100 WBC (0); Platelet Count 185 K/mcL (140-400); Red Blood Count 2.94 M/mcL (3.82-4.97); Segmented Neutrophils % 49.6 %
[2017-04-17 04:53] LABS: Alanine Aminotransferase 18 Units/L (0-55); Albumin 3.1 g/dL (3.5-5.0); Albumin/Globulin Ratio 0.8 (1.1-2.2); Alkaline Phosphatase 42 Units/L (38-126); Aspartate Amino Transferase 22 Units/L (5-34); BUN/Creatinine Ratio 20 (6-26); Bilirubin,Total 0.2 mg/dL (0.2-1.2); Blood Urea Nitrogen 18 mg/dL (7-20); Calcium 9.1 mg/dL (8.6-10.8); Carbon Dioxide 24 mEq/L (19-29); Chloride 107 mEq/L (98-109); Globulin 3.7 g/dL (2.4-3.5); Glucose 93 mg/dL (70-99); Osmolality,Calculated 290 (280-300); Potassium 4.1 mEq/L (3.5-4.5); Sodium 139 mEq/L (136-145); Total Protein 6.8 g/dL (6.0-8.3); eGFR For African Americans > 60 (> 60); eGFR For Non-African Americans > 60 (> 60)
[2017-04-17 07:21] VITALS: BP 141/61
[2017-04-17] MEDS: Famotidine 20 MG TABLET PO SCH (08:04)
[2017-04-17] MEDS: Cholecalciferol (D-3) 1,000 UNIT TABLET PO SCH (08:04)
[2017-04-17] MEDS: Aspirin Enteric Coated 81 MG Tablet PO SCH (08:04)
--- NOTE | 2017-04-17 10:01 | Discharge Summary ---
<Marty Orozco - Last Filed: 04/17/17 17:15> Date of Encounter: 04/17/17 Time of Encounter: 10:01 - Discharge Diagnosis (1) Pneumonia Priority: Primary Status: Acute Comments: Community acquired pneumonia. Has fever and shortness of breath and nausea on admission. Symptoms improved now. Continue Levaquin for total of 7 day duration of treatment Qualifiers: Pneumonia type: due to Pneumococcus Laterality: left Lung location: lower lobe of lung Qualified Code(s): J13 - Pneumonia due to Streptococcus pneumoniae (2) COPD (chronic obstructive pulmonary disease) Priority: Secondary Status: Chronic Comments: Continue outpatient management Qualifiers: COPD type: unspecified COPD Qualified Code(s): J44.9 - Chronic obstructive pulmonary disease, unspecified (3) Anemia Priority: Secondary Status: Chronic Comments: HGB 11.6 --> 9.3 --> 9.8 No active bleeding History of Non-Hodgkin's Lymphoma Continue to monitor Qualifiers: Anemia type: unspecified type Qualified Code(s): D64.9 - Anemia, unspecified (4) GERD (gastroesophageal reflux disease) Priority: Primary Status: Chronic Comments: Hx of chronic GERD. Pt. currently takes Prevacid but states that her GERD is uncontrolled. PO Zantac oral solution 75 mg BID. Outpatient management Qualifiers: Esophagitis presence: esophagitis presence not specified Qualified Code(s) : K21.9 - Gastro-esophageal reflux disease without esophagitis (5) Arthritis Priority: Secondary Status: Chronic Comments: Hx of chronic arthritis. Stair-step pain medication for pain management. (6) HLD (hyperlipidemia) Priority: Secondary Status: Chronic Comments: Hx of chronic HLD. Lipid panel reveals LDL 67. Continue simvastatin. Qualifiers: Hyperlipidemia type: pure hypercholesterolemia Qualified Code(s): E78.00 - Pure hypercholesterolemia, unspecified; E78.0 - Pure hypercholesterolemia (7) Obesity (BMI 30.0-34.9) Priority: Secondary Status: Chronic Comments: Diet modification and exercise discussed (8) DVT prophylaxis Priority: Primary Status: Acute Comments: Heparin 5,000 units SQ Q8 for DVT prophylaxis - Discharge Medications Prescriptions: Levofloxacin [Levaquin] 750 mg PO DAILY #6 tablet Home Medications: Albuterol Sulfate [Proair Hfa] 2 puff IH Q4H PRN 10/22/16 [History] Amitriptyline [Elavil] 10 mg PO HS 10/22/16 [History] Aspirin [Lo-Dose Aspirin EC] 81 mg PO DAILY 10/22/16 [History] Cholecalciferol (D-3) [Vitamin D] 1,000 unit PO DAILY 10/22/16 [History] Docusate Sodium [Colace] 100 mg PO DAILY 10/22/16 [History] Escitalopram [Lexapro] 20 mg PO DAILY 10/22/16 [History] Furosemide [Lasix] 20 mg PO DAILY PRN 10/22/16 [History] LORazepam [Ativan] 1 mg PO TID PRN 10/22/16 [History] Lansoprazole [Prevacid] 30 mg PO DAILY 10/22/16 [History] Lidocaine Patch [Lidoderm 5% patch] 1 patch TP DAILY 10/22/16 [History] Potassium Chloride [K-Tab ER] 20 meq PO DAILY 10/22/16 [History] Simvastatin [Zocor] 20 mg PO DAILY 10/22/16 [History] Acetaminophen [Tylenol] 650 mg PO Q6HR PRN tablet 04/17/17 [Rx] Levofloxacin [Levaquin] 750 mg PO DAILY #6 tablet 04/17/17 [Rx] Allergies/Adverse Reactions: 3 Allergy/AdvReac Type Severity Reaction Status Date / Time meloxicam Allergy Rash Verified 04/14/17 13:41 Procedures/tests Complete & Pending: Procedures Performed prior 72 hours Category Date Time Status ECG 12 lead ECG [ECG] Routine Y 04/14/17 21:21 Ordered Date of admission: 04/14/17 20:55 Primary care physician: Serjio Engel Jr, MD Discharging clinician: Marty Orozco Anticipated date of discharge: 04/17/17 - Patient Status Disposition: Home, Self-Care Condition: Good Functional capacity at discharge: independent ambulation Overall status at discharge: patient is progressing back to baseline - Discharge Instructions Instructions: Levofloxacin (By mouth), Pneumonia (DC) Follow Up With: Maral Schmidt CNP [Partnered Physician] - 04/24/17 10:30 am Additional Instructions: Continue Levaquin for 6 more days Follow up with PCP in 1 week - Diet and Activity Activity: increase activity as tolerated, resume usual activities as tolerated Diet: advance to your usual diet Hospital course: Ms. Landin is a 72 year old female with medical hx of arthritis, GERD, and previous large B-cell lymphoma who presented complaining of fever, chills, nausea, vomiting, abdominal pain, and shortness of breath, and weakness. Patient had previous hospitalization for pneumonia in October with similar symptoms. CXR revealed small retrocardiac opacity compatible with pneumonia or atelectasis. She had 2 SIRS criteria of WBC of 15.6 and HR of 103 bpm on admission. Patient improved during hospital course with Levaquin IV, Duonebs, and was later discharged home to complete a 7 day course of Levaquin. Patient instructed to follow up wit PCP in 1 week. - Time Spent with Patient Total time spent providing and/or coordinating discharge services: - Constitutional Vitals: Temp Pulse Resp BP Pulse Ox 97.5 F L 62 16 141/61 94 04/17/17 07:18 04/17/17 07:18 04/17/17 07:18 04/17/17 07:18 04/17/17 07:18 General appearance: Present: cooperative, A&O X 3, pleasant, no acute distress, obese, answers questions appropriately - Head Head exam: Present: atraumatic, normocephalic - Eye Eye exam: Present: EOMI, conjuntiva pink, sclera anicteric - Neck Neck exam general surgery: Present: supple, trachea midline. Absent: lymphadenopathy - Respiratory Respiratory exam: Present: CTAB. Absent: accessory muscle use, rales, rhonchi, wheezes - Cardiovascular Cardiovascular exam: Present: RRR, +S1, +S2. Absent: diastolic murmur, gallop, rubs, systolic murmur - GI/Abdominal GI/Abdominal exam: Present: normal bowel sounds, soft, no peritoneal signs. Absent: distended, tenderness - Extremities Exam Extremities exam: Present: warm, radial pulses palpable and symmetrical. Absent : calf tenderness, cyanotic, pedal edema - Back Exam Back exam: Present: normal inspection. Absent: paraspinal tenderness, tenderness - Neurological Exam Neurological exam: Present: oriented X3, no focal deficits. Absent: pronater drift, facial droop, speech deficit - Psychiatric Psychiatric exam: Present: normal affect, normal mood - Skin Skin exam: Present: dry, intact, warm <Mahad Ken - Last Filed: 04/17/17 18:44> Date of Encounter: 04/17/17 - Discharge Diagnosis (1) Pneumonia Status: Acute Qualifiers: Pneumonia type: due to Pneumococcus Laterality: left Lung location: lower lobe of lung Qualified Code(s): J13 - Pneumonia due to Streptococcus pneumoniae (2) GERD (gastroesophageal reflux disease) Status: Chronic Qualifiers: Esophagitis presence: esophagitis presence not specified Qualified Code(s) : K21.9 - Gastro-esophageal reflux disease without esophagitis (3) DVT prophylaxis Status: Acute Date of admission: 04/14/17 20:55 Primary care physician: Serjio Engel Jr, MD Hospital course: Ms. Landin is a 72 year old female - Time Spent with Patient Total time spent providing and/or coordinating discharge services: - Constitutional Vitals: Temp Pulse Resp BP Pulse Ox 97.5 F L 62 16 141/61 96 04/17/17 07:18 04/17/17 07:18 04/17/17 10:45 04/17/17 07:18 04/17/17 10:45 - Attending Attestation I have seen and examined pt independently. I have discussed with resident physician Dr Orozco regarding the management plan. Agree with the documentation. Pt admitted for pneumonia. After iv levaquin, symptoms improved, WBC get down. Pt has no further complaint today. Will d/c home on po levaquin.
== END 2017-04-17 12:55 | disposition home or self-care (01) | DRG 194 ==
LOC: EMEROO 13:27 → 2NENU 13:27
PROVIDERS: ADMIT Internal Medicine; ATTEND Internal Medicine

== ENCOUNTER 2017-11-26 14:47 | Inpatient (IN) ==
[2017-11-26] MEDS ORDERED: methylPREDNISolone 125 MG/2 ML VIAL IVP ONE (15:13)
[2017-11-26] MEDS ORDERED: Ipratropium/Albuterol Neb 3 ML IH ONE (15:13)
--- NOTE | 2017-11-26 15:24 | Emergency Department Note ---
Disposition Clinical Impression: Pneumonia, Dyspnea, Elevated troponin Disposition: Admitted As Inpatient Condition: Fair Time of Disposition: 18:16 General Adult HPI - General Chief complaint: ED Nausea/Vomiting/Diarrhea Stated complaint: "sick" Time Seen by Provider: 11/26/17 14:57 - History of Present Illness Pain Scale: 0 - Related Data Home Medications Medication Instructions Recorded Confirmed Amitriptyline [Elavil] 10 mg PO HS 10/22/16 11/26/17 Aspirin [Lo-Dose Aspirin EC] 81 mg PO DAILY 10/22/16 11/26/17 Cholecalciferol (D-3) [Vitamin D] 1,000 unit PO DAILY 10/22/16 11/26/17 Docusate Sodium [Colace] 100 mg PO DAILY 10/22/16 11/26/17 Escitalopram [Lexapro] 20 mg PO DAILY 10/22/16 11/26/17 Furosemide [Lasix] 20 mg PO DAILY PRN 10/22/16 11/26/17 LORazepam [Ativan] 1 mg PO TID PRN 10/22/16 11/26/17 Lansoprazole [Prevacid] 30 mg PO DAILY 10/22/16 11/26/17 Lidocaine Patch [Lidoderm 5% patch] 1 patch TP DAILY 10/22/16 11/26/17 Potassium Chloride [K-Tab ER] 20 meq PO DAILY PRN 10/22/16 11/26/17 Simvastatin [Zocor] 20 mg PO DAILY 10/22/16 11/26/17 Previous Rx's Medication Instructions Recorded Acetaminophen [Tylenol] 650 mg PO Q6HR PRN tablet 04/17/17 Allergies Allergy/AdvReac Type Severity Reaction Status Date / Time meloxicam Allergy Rash Verified 11/26/17 17:17 Past Medical History - Past Medical History Medical history: Reports: arthritis, cancer, GERD Surgical history: Reports: colectomy, hysterectomy, splenectomy Psychiatric history: Reports: no psych history - Social History Smoking Status: Former smoker Smokeless Tobacco Status: No Alcohol use: Reports: none Drug use: Reports: none Course Vital Signs Temperature 97.9 F 11/26/17 14:54 Pulse Rate 89 11/26/17 14:54 Respiratory Rate 16 11/26/17 14:54 Blood Pressure 123/67 11/26/17 14:54 O2 Sat by Pulse Oximetry 93 11/26/17 14:54 Temperature 97.9 F 11/26/17 14:54 Pulse Rate 89 11/26/17 14:54 Respiratory Rate 16 11/26/17 14:54 Blood Pressure 123/67 11/26/17 14:54 O2 Sat by Pulse Oximetry 93 11/26/17 14:54 Oxygen Delivery Oxygen Delivery Room Air Medical Decision Making - Lab Data Result diagrams: 11/26/17 15:14 11/26/17 15:14 Lab Results 11/26/17 11/26/17 11/26/17 Range/Units 15:14 15:14 15:14 WBC 20.7 H (4.3-11.1) K/mcL RBC 3.38 L (3.82-4.97) M/mcL Hgb 11.4 L (11.5-15.4) g/dL Hct 35.0 L (35.3-44.9) % MCV 103.6 H (83.0-100.0) fL MCH 33.7 H (28.0-33.3) pg MCHC 32.6 (31.6-35.5) g/dL RDW 14.9 H (11.5-14.5) % Plt Count 180 (140-400) K/mcL MPV 10.1 (9.4-12.4) fL Seg Neutrophils % 52.0 % Band Neutrophils % 16.0 H (0-4) % Lymphocytes % 26.0 % Metamyelocytes % 6.0 H (0) % Neutrophils # 14.1 H (1.6-8.9) K/mcL Lymphocytes # 5.4 H (0.6-4.6) K/mcL Toxic Granulation Present A (Not Present) Platelet Estimate Normal (Normal) PT (9.4-12.1) Seconds INR APTT (26.0-36.0) Seconds Sodium 137 (136-145) mEq/L Potassium 3.5 (3.5-5.1) mEq/L Chloride 103 (98-107) mEq/L Carbon Dioxide 26 (23-29) mEq/L BUN 16 (8-23) mg/dL Creatinine 0.92 (0.60-1.20) mg/dL Est GFR ( Amer) > 60 (> 60) Est GFR (Non-Af Amer) 60 (> 60) BUN/Creatinine Ratio 17 (6-26) Glucose 124 H (70-105) mg/dL Calculated Osmolality 287 (280-300) Calcium 9.8 (8.6-10.3) mg/dL Troponin I 0.22 H* (< 0.04) ng/mL B-Natriuretic Peptide 199 H (Less than 100) pg/mL Urine Color (Yellow) Urine Clarity (Clear) Urine pH (5.0-8.0) pH Units Ur Specific [place] (1.010-1.025) Urine Protein (Neg-Trace) mg/dL Urine Glucose (UA) (Normal) mg/dL Urine Ketones (Negative) mg/dL Urine Blood (Negative) Urine Nitrite (Negative) Urine Bilirubin (Negative) Urine Urobilinogen (Normal) mg/dL Ur Leukocyte Esterase (Negative) Urine Microscopic RBC (0-3) per hpf Urine Microscopic WBC (0-3) per hpf Ur Squamous Epith Cells (None-Few) per lpf Urine Bacteria (None-Few) per hpf Hyaline Casts (None-Few) per lpf Ur Culture Indicated? (NO) 11/26/17 11/26/17 Range/Units 15:25 15:43 WBC (4.3-11.1) K/mcL RBC (3.82-4.97) M/mcL Hgb (11.5-15.4) g/dL Hct (35.3-44.9) % MCV (83.0-100.0) fL MCH (28.0-33.3) pg MCHC (31.6-35.5) g/dL RDW (11.5-14.5) % Plt Count (140-400) K/mcL MPV (9.4-12.4) fL Seg Neutrophils % % Band Neutrophils % (0-4) % Lymphocytes % % Metamyelocytes % (0) % Neutrophils # (1.6-8.9) K/mcL Lymphocytes # (0.6-4.6) K/mcL Toxic Granulation (Not Present) Platelet Estimate (Normal) PT 14.1 H (9.4-12.1) Seconds INR 1.3 APTT 29.7 (26.0-36.0) Seconds Sodium (136-145) mEq/L Potassium (3.5-5.1) mEq/L Chloride (98-107) mEq/L Carbon Dioxide (23-29) mEq/L BUN (8-23) mg/dL Creatinine (0.60-1.20) mg/dL Est GFR ( Amer) (> 60) Est GFR (Non-Af Amer) (> 60) BUN/Creatinine Ratio (6-26) Glucose (70-105) mg/dL Calculated Osmolality (280-300) Calcium (8.6-10.3) mg/dL Troponin I (< 0.04) ng/mL B-Natriuretic Peptide (Less than 100) pg/mL Urine Color Dark Yellow (Yellow) Urine Clarity Cloudy A (Clear) Urine pH 5.5 (5.0-8.0) pH Units Ur Specific [place] 1.024 (1.010-1.025) Urine Protein 30 H (Neg-Trace) mg/dL Urine Glucose (UA) Normal (Normal) mg/dL Urine Ketones Negative (Negative) mg/dL Urine Blood Negative (Negative) Urine Nitrite Negative (Negative) Urine Bilirubin Small H (Negative) Urine Urobilinogen Normal (Normal) mg/dL Ur Leukocyte Esterase Small H (Negative) Urine Microscopic RBC 0-3 (0-3) per hpf Urine Microscopic WBC 30-50 H (0-3) per hpf Ur Squamous Epith Cells Many H (None-Few) per lpf Urine Bacteria None Seen (None-Few) per hpf Hyaline Casts Moderate H (None-Few) per lpf Ur Culture Indicated? NO. A (NO) Attestation Statement - Attestation Attestation: I, Mocnho Saunders DO, examined this patient [id number] and my medical decision-making was reviewed with Dr. Yandel Moreno, Resident Physician. I agree with the documented findings, disposition and treatment plan as described except to the extent set forth below. Please see my progress notes for details. 72-year-old female presents emergency room with generalized malaise a nonproductive cough and some exertional dyspnea that started on of this week. Symptoms of been progressively getting worse and she came to visit her daughter. Patient does have baseline COPD but is not oxygen dependent. She only uses inhalers at home as needed. She has been admitted several times in the past secondary to pneumonia and bronchitis. She feels that this is identical to those events. Currently she is denying chest pain diarrhea chills headache or vision change. She did describe one episode of nausea and vomiting on Monday that has now resolved as well as feeling like she had a fever today. On physical exam here vital signs initially are completely normal. Patient is afebrile with a normal heart rate. She is denying any symptoms of this point while lying in the bed. Her lungs do have bilateral wheezing noted worse in the posterior listing alberts in comparison to the anterior listing alberts. Heart is regular abdomen is soft nontender nondistended. Patient's oropharynx is patent trachea is midline. EKG was collected with a comparison from 2017. Patient does have some new progression of the bundle branch block as well as increasing left ventricular hypertrophy. There is no visible signs of ST segment elevation or myocardial infarction at this time. Patient will have treatment course started with aspirin steroids and breathing treatments along with EKG chest x-ray CBC chemistry troponin and BNP and urinalysis. Disposition will be determined once full workup and treatment course are established. Patient is otherwise denying any symptoms or complaints at this time except for worsening exertional dyspnea. Influenza swab will be added on considering the context the patient's generalized malaise and fever that she described today. See detailed documentation of the physical exam, medical intervention, medical decision-making and disposition in the resident physician' s note. No critical care pad the patient's treatment course at this time. 1625 Patient found to have patchy infiltrates on the mediastinal margin the left lung. This is concerning for pneumonia. No other findings noted on chest x- ray. Patient's troponin is elevated today 0.22. Patient has never had an elevated troponin in the past. She again is still denying chest pain and repeat EKG is ordered at this point. Admission process will be completed. The troponin as well as EKG changes are most likely secondary to increased work of breathing from the pulmonary illness but we will evaluate for cardiac related symptoms. Cardiology will be consult for review the EKG and elevated troponin. Patient does have an IVC filter and takes aspirin daily. Anticoagulation will be started at the request of the perianesthesia manager wants to discuss it. Otherwise it will be held at this time. Disposition will be admission to hospital for further management and evaluation. Blood cultures and first doses of antibiotics covering for community-acquired pneumonia ordered at this time 1700 Hospitalist paged at this time for admission of what appears to be an nSTEMI most likely secondary to infectious etiology. Cardiology was consult and recommendations were noted in the chart along with start the patient on heparin. No other acute concerns or issues noted this time. Admission process to be established at this point. Patient was discussed with the hospitalist Mya. Detailed discussion was had. No other recommendations or concerns. Admission process will be completed. Patient will be observed in emergency room until admission is established
[2017-11-26 15:53] LABS: Hemoglobin 11.4 g/dL (11.5-15.4); Mean Corpuscular HGB Conc 32.6 g/dL (31.6-35.5); Mean Corpuscular Hemoglobin 33.7 pg (28.0-33.3); Mean Corpuscular Volume 103.6 fL (83.0-100.0); Mean Platelet Volume 10.1 fL (9.4-12.4); Platelet Count 180 K/mcL (140-400); Red Blood Count 3.38 M/mcL (3.82-4.97); Red Cell Distribution Width 14.9 % (11.5-14.5)
[2017-11-26 15:57] LABS: Bilirubin,Urine Small (Negative); Blood,Urine Negative (Negative); Clarity,Urine Cloudy (Clear); Color,Urine Dark Yellow (Yellow); Glucose,Urine (UA) Normal (Normal); Ketones,Urine Negative (Negative); Leukocyte Esterase,Urine Small (Negative); Nitrite,Urine Negative (Negative); PH,Urine 5.5 pH Units (5.0-8.0); Protein,Urine 30 mg/dL (Neg-Trace); Specific Gravity,Urine 1.024 (1.010-1.025); Urobilinogen,Urine Normal (Normal)
--- NOTE | 2017-11-26 15:57 | Emergency Department Note ---
Disposition Clinical Impression: Elevated troponin Pneumonia Qualifiers: Pneumonia type: due to unspecified organism Laterality: unspecified laterality Lung location: unspecified part of lung Qualified Code(s): J18.9 - Pneumonia, unspecified organism Dyspnea Qualifiers: Dyspnea type: unspecified Qualified Code(s): R06.00 - Dyspnea, unspecified Disposition: Admitted As Inpatient Condition: Fair Time of Disposition: 18:24 General Adult HPI - General Chief complaint: ED Nausea/Vomiting/Diarrhea Stated complaint: "sick" Time Seen by Provider: 11/26/17 14:57 Source: patient, family Mode of arrival: ambulatory Limitations: no limitations Nursing Notes Reviewed: Yes Vital Signs Reviewed: Yes - History of Present Illness HPI Narrative: Patient is a 72-year-old female with a past medical history of COPD presents for evaluation of shortness of breath, weakness, and an isolated episode of nausea and vomiting. Her symptoms started approximately 3 days ago which the patient states that she began to feel weak and tired than the following night she spirits episode of nausea and vomiting after having dinner. States she began to have a dry cough as well notes and that she was short of breath that she was walking to and from short distances. States she had a fever today of 100.7. Patient states she has been able tolerate by mouth. She is a former smoker. She does not require oxygen. She has an albuterol inhaler, however she was staying with her daughter and she did not have it with her at this time. Pain Scale: 0 - Related Data Home Medications Medication Instructions Recorded Confirmed Amitriptyline [Elavil] 10 mg PO HS 10/22/16 11/26/17 Aspirin [Lo-Dose Aspirin EC] 81 mg PO DAILY 10/22/16 11/26/17 Cholecalciferol (D-3) [Vitamin D] 1,000 unit PO DAILY 10/22/16 11/26/17 Docusate Sodium [Colace] 100 mg PO DAILY 10/22/16 11/26/17 Escitalopram [Lexapro] 20 mg PO DAILY 10/22/16 11/26/17 Furosemide [Lasix] 20 mg PO DAILY PRN 10/22/16 11/26/17 LORazepam [Ativan] 1 mg PO TID PRN 10/22/16 11/26/17 Lansoprazole [Prevacid] 30 mg PO DAILY 10/22/16 11/26/17 Lidocaine Patch [Lidoderm 5% patch] 1 patch TP DAILY 10/22/16 11/26/17 Potassium Chloride [K-Tab ER] 20 meq PO DAILY PRN 10/22/16 11/26/17 Simvastatin [Zocor] 20 mg PO DAILY 10/22/16 11/26/17 Previous Rx's Medication Instructions Recorded Acetaminophen [Tylenol] 650 mg PO Q6HR PRN tablet 04/17/17 Allergies Allergy/AdvReac Type Severity Reaction Status Date / Time meloxicam Allergy Rash Verified 11/26/17 17:17 All systems ED: reviewed and negative except as stated. Review of Systems: As Per HPI Constitutional: Reports: fever, weakness. Denies: chills ENT ED: Denies: congestion Cardiovascular: Reports: dyspnea on exertion. Denies: chest pain, palpitations , edema, syncope Respiratory: Reports: cough, dyspnea, wheezes. Denies: sputum production Gastrointestinal: Reports: nausea (x1, 2 days ago), vomiting (x1, 2 days ago.). Denies: abdominal pain, diarrhea, constipation, hematemesis, melena Genitourinary: Denies: urgency, dysuria Musculoskeletal: Denies: back pain, neck pain Past Medical History - Past Medical History Attestation: Yes The following information was validated with the patient. Medical history: Reports: arthritis, cancer, GERD Surgical history: Reports: colectomy, hysterectomy, splenectomy Psychiatric history: Reports: no psych history - Social History Smoking Status: Former smoker Smokeless Tobacco Status: No Alcohol use: Reports: none Drug use: Reports: none Physical Exam CONSTITUTIONAL: A&O X 3, in no apparent distress. Patient's vital signs are within normal limits. She does not appear to be in respiratory distress she is sitting up in bed and speaks in full sentences. HEAD: Normocephalic; atraumatic EYES: PERRL, no scleral icterus NOSE: The nose is normal in appearance without rhinorrhea NECK: No JVD or distended neck veins RESP: Patient has diffuse wheezing in all lung alberts heard best in the posterior region of the bilateral lower lobes. CARD: Regular rhythm, without murmurs, rub or gallop ABD: Non-distended; non-tender, soft, without rigidity, rebound or guarding,no pulsatile mass CHEST: No pain with palpation SKIN: Normal for age and race; warm and dry without diaphoresis ; no apparent lesions EXTREMITIES: Pulses are 2 plus and equal times 4 extremities, no peripheral edema or calf muscle pain Course Course Narrative: Patient presents for weakness and shortness of breath with the isolated episode of nausea and vomiting. Symptoms are also associated with a productive cough on top of underlying COPD. Plan at this time is to give the patient steroids and breathing treatments as well as perform chest x-ray and lab work to evaluate for cardiac etiology. I suspect a PE at this time due to the patient not having tachycardia, she has no active cancer, no recent hospitalizations, no recent long travels, she is satting well on room air. - Reevaluation(s) Reevaluation #1: Critical lab called and the troponin of 0.22. Repeat EKG was ordered. Patient was given full dose aspirin. Chest x-ray does show pneumonia she will be started on coverage for CAP. I plan to discuss these findings with Dr. Izaguirre , the wood carver on-call. Patient states she is feeling better after breathing treatments, however states that this medicine makes her anxious. Time: 16:27 Reevaluation #2: Discussed the patient's case with Dr. Izaguirre, I discussed the patient's new EKG findings states that patient's troponin elevation in the setting of pneumonia and COPD is most likely demand seen at this time, however with new EKG findings elevated troponin we will start her on ACS low-dose hypermenorrhea recommends admission with trending troponins. Time: 17:52 Vital Signs Temperature 97.9 F 11/26/17 14:54 Pulse Rate 89 11/26/17 14:54 Respiratory Rate 16 11/26/17 14:54 Blood Pressure 123/67 11/26/17 14:54 O2 Sat by Pulse Oximetry 93 11/26/17 14:54 Temperature 97.9 F 11/26/17 14:54 Pulse Rate 89 11/26/17 14:54 Respiratory Rate 16 11/26/17 14:54 Blood Pressure 123/67 11/26/17 14:54 O2 Sat by Pulse Oximetry 93 11/26/17 14:54 Oxygen Delivery Oxygen Delivery Room Air Medical Decision Making - Medical Records Medical records reviewed: Yes I reviewed the patient's medical records. - Lab Data Lab results reviewed: Yes I reviewed the patient's lab results. Result diagrams: 11/26/17 15:14 11/26/17 15:14 Lab Results 11/26/17 11/26/17 11/26/17 Range/Units 15:14 15:14 15:14 WBC 20.7 H (4.3-11.1) K/mcL RBC 3.38 L (3.82-4.97) M/mcL Hgb 11.4 L (11.5-15.4) g/dL Hct 35.0 L (35.3-44.9) % MCV 103.6 H (83.0-100.0) fL MCH 33.7 H (28.0-33.3) pg MCHC 32.6 (31.6-35.5) g/dL RDW 14.9 H (11.5-14.5) % Plt Count 180 (140-400) K/mcL MPV 10.1 (9.4-12.4) fL Seg Neutrophils % 52.0 % Band Neutrophils % 16.0 H (0-4) % Lymphocytes % 26.0 % Metamyelocytes % 6.0 H (0) % Neutrophils # 14.1 H (1.6-8.9) K/mcL Lymphocytes # 5.4 H (0.6-4.6) K/mcL Toxic Granulation Present A (Not Present) Platelet Estimate Normal (Normal) PT (9.4-12.1) Seconds INR APTT (26.0-36.0) Seconds Sodium 137 (136-145) mEq/L Potassium 3.5 (3.5-5.1) mEq/L Chloride 103 (98-107) mEq/L Carbon Dioxide 26 (23-29) mEq/L BUN 16 (8-23) mg/dL Creatinine 0.92 (0.60-1.20) mg/dL Est GFR ( Amer) > 60 (> 60) Est GFR (Non-Af Amer) 60 (> 60) BUN/Creatinine Ratio 17 (6-26) Glucose 124 H (70-105) mg/dL Calculated Osmolality 287 (280-300) Calcium 9.8 (8.6-10.3) mg/dL Troponin I 0.22 H* (< 0.04) ng/mL B-Natriuretic Peptide 199 H (Less than 100) pg/mL Urine Color (Yellow) Urine Clarity (Clear) Urine pH (5.0-8.0) pH Units Ur Specific [place] (1.010-1.025) Urine Protein (Neg-Trace) mg/dL Urine Glucose (UA) (Normal) mg/dL Urine Ketones (Negative) mg/dL Urine Blood (Negative) Urine Nitrite (Negative) Urine Bilirubin (Negative) Urine Urobilinogen (Normal) mg/dL Ur Leukocyte Esterase (Negative) Urine Microscopic RBC (0-3) per hpf Urine Microscopic WBC (0-3) per hpf Ur Squamous Epith Cells (None-Few) per lpf Urine Bacteria (None-Few) per hpf Hyaline Casts (None-Few) per lpf Ur Culture Indicated? (NO) 11/26/17 11/26/17 Range/Units 15:25 15:43 WBC (4.3-11.1) K/mcL RBC (3.82-4.97) M/mcL Hgb (11.5-15.4) g/dL Hct (35.3-44.9) % MCV (83.0-100.0) fL MCH (28.0-33.3) pg MCHC (31.6-35.5) g/dL RDW (11.5-14.5) % Plt Count (140-400) K/mcL MPV (9.4-12.4) fL Seg Neutrophils % % Band Neutrophils % (0-4) % Lymphocytes % % Metamyelocytes % (0) % Neutrophils # (1.6-8.9) K/mcL Lymphocytes # (0.6-4.6) K/mcL Toxic Granulation (Not Present) Platelet Estimate (Normal) PT 14.1 H (9.4-12.1) Seconds INR 1.3 APTT 29.7 (26.0-36.0) Seconds Sodium (136-145) mEq/L Potassium (3.5-5.1) mEq/L Chloride (98-107) mEq/L Carbon Dioxide (23-29) mEq/L BUN (8-23) mg/dL Creatinine (0.60-1.20) mg/dL Est GFR ( Amer) (> 60) Est GFR (Non-Af Amer) (> 60) BUN/Creatinine Ratio (6-26) Glucose (70-105) mg/dL Calculated Osmolality (280-300) Calcium (8.6-10.3) mg/dL Troponin I (< 0.04) ng/mL B-Natriuretic Peptide (Less than 100) pg/mL Urine Color Dark Yellow (Yellow) Urine Clarity Cloudy A (Clear) Urine pH 5.5 (5.0-8.0) pH Units Ur Specific [place] 1.024 (1.010-1.025) Urine Protein 30 H (Neg-Trace) mg/dL Urine Glucose (UA) Normal (Normal) mg/dL Urine Ketones Negative (Negative) mg/dL Urine Blood Negative (Negative) Urine Nitrite Negative (Negative) Urine Bilirubin Small H (Negative) Urine Urobilinogen Normal (Normal) mg/dL Ur Leukocyte Esterase Small H (Negative) Urine Microscopic RBC 0-3 (0-3) per hpf Urine Microscopic WBC 30-50 H (0-3) per hpf Ur Squamous Epith Cells Many H (None-Few) per lpf Urine Bacteria None Seen (None-Few) per hpf Hyaline Casts Moderate H (None-Few) per lpf Ur Culture Indicated? NO. A (NO) - Radiology Data Radiology results reviewed: Yes I reviewed the patient's radiology results. Chest X-Ray 11/26/17 15:14 IMPRESSION: 1. Mild patchy opacification within the left perihilar region. 2. No acute abnormality identified in the right lung. D/ / Gabriel Harmon MD / Gabriel Harmon MD Interpreting Provider: Gabriel Harmon MD - EKG Data EKG #1 EKG attestation: Yes I reviewed and interpreted this EKG. EKG results narrative: EKG done at 15:24 shows sinus rhythm at a rate of 83 bpm. There is left axis deviation. There is also right bundle branch block. As well as LVH. The LVH is new when compared to old EKG the QRS does appear to be increase in with when compared to old EKG that was done on 10/22/2016 EKG #2 EKG attestation: Yes I reviewed and interpreted this EKG. EKG results narrative: Repeat EKG done at 16:24 shows sinus rhythm at a rate of 93 bpm. Patient does have downsloping of the ST segment in lead V2 as well as an increase in the downsloping bleed V1 of ST. Otherwise unchanged from EKG done at 15:24 Attestation Statement - Attestation Attestation: I, Moncho Saunders DO, examined this patient [id number] and my medical decision-making was reviewed with Dr. Yandel Moreno, Resident Physician. I agree with the documented findings, disposition and treatment plan as described except to the extent set forth below. Please see my progress notes for details.
[2017-11-26 15:58] LABS: Bacteria,Urine None Seen per hpf (None-Few); Hyaline Casts,Urine Moderate per lpf (None-Few); RBC,Urine 0-3 per hpf (0-3); Squamous Epithelial Cell,Urine Many per lpf (None-Few); WBC,Urine 30-50 per hpf (0-3)
[2017-11-26 16:13] LABS: BUN/Creatinine Ratio 17 (6-26); Blood Urea Nitrogen 16 mg/dL (8-23); Calcium 9.8 mg/dL (8.6-10.3); Carbon Dioxide 26 mEq/L (23-29); Chloride 103 mEq/L (98-107); Glucose 124 mg/dL (70-105); Osmolality,Calculated 287 (280-300); Potassium 3.5 mEq/L (3.5-5.1); Sodium 137 mEq/L (136-145); eGFR For African Americans > 60 (> 60); eGFR For Non-African Americans 60 (> 60)
[2017-11-26 16:16] LABS: Troponin I 0.22 ng/mL (< 0.04)
[2017-11-26 16:20] LABS: Lymphocytes # 5.4 K/mcL (0.6-4.6); Neutrophils # 14.1 K/mcL (1.6-8.9)
[2017-11-26] MEDS ORDERED: Aspirin 81 MG TAB.CHEW PO STA (16:20)
[2017-11-26 16:22] LABS: Platelet Estimate Normal (Normal); Toxic Granulation Present (Not Present)
[2017-11-26] MEDS ORDERED: Levofloxacin 750 MG/150 ML 750 MG/150 ML BAG IVPB ONE (16:25)
[2017-11-26] MEDS ORDERED: Piperacillin/Tazobactam 3.375 GM in 0.9 % Sodium Chloride Mini Bag 100 ML IVPB ONE (16:25)
[2017-11-26] MEDS ORDERED: cefTRIAXone 1,000 MG in Water for inj. (sterile) 20 ML 10 ML IVP ONE (16:26)
[2017-11-26] MEDS ORDERED: *HR* Heparin 5,000 UNIT/ML VIAL IVP ONE (16:56)
[2017-11-26] MEDS ORDERED: *HR* Heparin 5,000 UNIT/ML VIAL IVP PRN ×2 (16:56)
[2017-11-26] MEDS ORDERED: Heparin 25,000 UNIT/500 ML D5W 25,000 UNIT/500 ML BAG IVC SCH (17:00)
[2017-11-26 17:21] LABS: INR 1.3; Prothrombin Time 14.1 Seconds (9.4-12.1)
[2017-11-26 17:24] LABS: Activated Partial Thrombo Time 29.7 Seconds (26.0-36.0)
[2017-11-26] MEDS ORDERED: Naloxone 0.4 MG/ML INJ IVP PRN (20:17)
[2017-11-26] MEDS ORDERED: Acetaminophen 325 MG TABLET PO PRN (20:17)
[2017-11-26] MEDS ORDERED: Furosemide 20 MG TABLET PO PRN (20:19)
--- NOTE | 2017-11-26 20:28 | Internal Med History&Physical ---
Date of Encounter: 11/26/17 Time of Encounter: 19:00 Internal Medicine - H&P: HPI Chief complaint: Shortness of breath Admitted From: Home Plans for Post Hospital Care: Home History of present illness: Ms. Landin is a 72 year old female present to ER for shortness of breath since 2 days ago. Past medical history is significant for COPD, lymphoma. Patient said she started to feel sick since Monday. Patient had increased shortness of breath. Subjective fever. Patient denies sore throat, cough, chest pain, or nausea. Patient denies diarrhea or urination symptoms. In the emergency room, patient was found leukocytosis with WBC 20 K with bandemia. Patient was also found elevated troponin. Chest x-ray shows left-sided pneumonia. Patient denies recent hospitalization in last 3 months. Patient was treated with antibiotic and steroid and bronchodilator. Patient feel symptoms has improved after treatment. Patient was admitted as CAP and COPD exacerbation. Past Med Surg Social Fam HX - Past Medical History Medical history: arthritis, cancer, GERD, hyperlipidemia Additional medical history: lymphoma Psychiatric history: no psych history - Past Surgical History Surgical History: colectomy, hysterectomy, splenectomy Additional surgical history: BREANA FILTER - Social History Smoking Status: Former smoker Smokeless Tobacco Status: No Alcohol use: none Drug use: none - Family History Father Family Member Ethnicity: Non- Living Status: Hx Family Cardiac Disorders: Yes (LA) Mother Family Member Ethnicity: Non- Living Status: Hx Family Cancer: Yes (Pancreatic) Sister Family Member Ethnicity: Non- Living Status: Still Living Hx Family Cardiac Disorders: Yes (CAD) Hx Family Cancer: Yes (Breast) Internal Medicine - H&P: Meds Amitriptyline [Elavil] 10 mg PO HS 10/22/16 [History] Aspirin [Lo-Dose Aspirin EC] 81 mg PO DAILY 10/22/16 [History] Cholecalciferol (D-3) [Vitamin D] 1,000 unit PO DAILY 10/22/16 [History] Docusate Sodium [Colace] 100 mg PO DAILY 10/22/16 [History] Escitalopram [Lexapro] 20 mg PO DAILY 10/22/16 [History] Furosemide [Lasix] 20 mg PO DAILY PRN 10/22/16 [History] LORazepam [Ativan] 1 mg PO TID PRN 10/22/16 [History] Lansoprazole [Prevacid] 30 mg PO DAILY 10/22/16 [History] Lidocaine Patch [Lidoderm 5% patch] 1 patch TP DAILY 10/22/16 [History] Potassium Chloride [K-Tab ER] 20 meq PO DAILY PRN 10/22/16 [History] Simvastatin [Zocor] 20 mg PO DAILY 10/22/16 [History] Acetaminophen [Tylenol] 650 mg PO Q6HR PRN tablet 04/17/17 [Rx] 3 Allergy/AdvReac Type Severity Reaction Status Date / Time meloxicam Allergy Rash Verified 11/26/17 17:17 All Systems PM: A 10-system review of systems was performed and is negative for pertinent findings except as documented above in the HPI. - Constitutional Vitals: Temp Pulse Resp BP Pulse Ox 98.0 F 93 18 108/56 94 11/26/17 19:29 11/26/17 19:29 11/26/17 19:29 11/26/17 19:29 11/26/17 19:29 General appearance: Present: A&O X 3, no acute distress, answers questions appropriately - Head Head exam: Present: atraumatic, normocephalic - Eye Eye exam: Present: PERRL, conjuntiva pink, sclera anicteric Pupils: Present: PERRL - Neck Neck exam general surgery: Present: supple, trachea midline. Absent: lymphadenopathy - Respiratory Respiratory exam: Present: CTAB. Absent: accessory muscle use, rales, rhonchi, wheezes - Cardiovascular Cardiovascular exam: Present: RRR, +S1, +S2. Absent: diastolic murmur, gallop, rubs, systolic murmur - GI/Abdominal GI/Abdominal exam: Present: normal bowel sounds, soft, no peritoneal signs. Absent: distended, tenderness - Extremities Exam Extremities exam: Present: warm, radial pulses palpable and symmetrical. Absent : calf tenderness, cyanotic, pedal edema - Neurological Exam Neurological exam: Present: CN II-XII intact, oriented X3, no focal deficits. Absent: pronater drift, facial droop, speech deficit - Skin Skin exam: Present: dry, intact Internal Med - H&P Results - Labs CBC & Chem 7: 11/26/17 15:14 11/26/17 15:14 - Assessment and plan (1) Elevated troponin Current Visit: Yes Status: Acute Assessment and plan: Patient denies chest pain. Patient has elevated troponin with symptoms of shortness of breath. Need to rule out ACS/NSTEMI. - Continuous cardiac monitoring - We will track 3 sets of troponin - EKG shows RBBB, which is not shown on previous EKG. Will order echocardiogram - Cardiology consult - Patient currently was placed on heparin drip per cardiology recommendation. - Nothing by mouth from midnight in case cardiology procedure needed. (2) Pneumonia Current Visit: Yes Status: Acute Assessment and plan: Patient has shortness of breath, leukocytosis with bandemia, subjective fever. Patient has no recent hospitalization. Consider community acquired pneumonia. - Continue Levaquin IV - Follow up blood culture Qualifiers: Pneumonia type: due to Pneumococcus Laterality: unspecified laterality Lung location: unspecified part of lung Qualified Code(s): J13 - Pneumonia due to Streptococcus pneumoniae (3) DVT prophylaxis Current Visit: No Status: Acute Assessment and plan: Patient is on heparin drip (4) COPD (chronic obstructive pulmonary disease) Current Visit: No Status: Chronic Assessment and plan: No wheezing at this point. However patient had steroids and bronchodilator treatment in ER, which has relieved her symptoms. - Place patient on by mouth prednisone and xopenex IH - Closely monitor patient Qualifiers: COPD type: unspecified COPD Qualified Code(s): J44.9 - Chronic obstructive pulmonary disease, unspecified (5) History of non-Hodgkin's lymphoma Current Visit: No Status: Chronic Assessment and plan: On remission. Not on any treatment at this point. - Time Spent With Patient Total time spent is greater than 50% in coordination of care (as documented) at patient's floor/unit and/or counseling patient: 40 minutes Greater than 35 minutes
[2017-11-26] MEDS: Levalbuterol Neb 1.25 MG/3 ML IH SCH (22:07)
[2017-11-27] MEDS ORDERED: Levalbuterol Neb 1.25 MG/3 ML IH SCH
[2017-11-27] MEDS ORDERED: Levalbuterol Neb 1.25 MG/3 ML IH PRN (00:09)
[2017-11-27 00:37] LABS: Hematocrit 30.2 % (35.3-44.9); Hemoglobin 9.9 g/dL (11.5-15.4); Immature Platelets 3.5 % (1.1-6.1); Mean Corpuscular HGB Conc 32.8 g/dL (31.6-35.5); Mean Corpuscular Hemoglobin 33.2 pg (28.0-33.3); Mean Corpuscular Volume 101.3 fL (83.0-100.0); Mean Platelet Volume 10.4 fL (9.4-12.4); Platelet Count 180 K/mcL (140-400); Red Blood Count 2.98 M/mcL (3.82-4.97)
[2017-11-27] MEDS: *HR* LORazepam 1 MG TABLET PO PRN ×2 (00:45→21:45)
[2017-11-27] MEDS: Azithromycin 500 MG in D5% in Water 250 ML IVPB SCH (00:45)
[2017-11-27 00:49] LABS: BUN/Creatinine Ratio 18 (6-26); Blood Urea Nitrogen 17 mg/dL (8-23); Calcium 9.3 mg/dL (8.6-10.3); Carbon Dioxide 23 mEq/L (23-29); Chloride 106 mEq/L (98-107); Chol/HDL Ratio 2.3 (0-4.9); Cholesterol 131 mg/dL (< 200); Glucose 238 mg/dL (70-105); HDL Cholesterol 57 mg/dL (40-59); LDL Cholesterol,Calculated 59 mg/dL (0-99); Magnesium 1.6 mg/dL (1.6-2.6); Osmolality,Calculated 293 (280-300); Potassium 3.4 mEq/L (3.5-5.1); Sodium 137 mEq/L (136-145); Triglycerides 73 mg/dL (< 150); eGFR For African Americans > 60 (> 60); eGFR For Non-African Americans 60 (> 60)
[2017-11-27 01:11] LABS: Large Platelets Present (Not Present); Lymphocytes # 0.7 K/mcL (0.6-4.6); Monocytes # 0.4 K/mcL (0.0-1.3); Neutrophils # 15.7 K/mcL (1.6-8.9); Platelet Estimate Normal (Normal)
[2017-11-27 01:31] LABS: Troponin I 0.11 ng/mL (< 0.04)
[2017-11-27] MEDS: Levalbuterol Neb 1.25 MG/3 ML IH SCH ×2 (03:52→09:52)
[2017-11-27] MEDS ORDERED: Potassium Chloride 40 MEQ, Lidocaine 1% 2 ML in D5% in Water 500 ML IVPB ONE (07:55)
--- NOTE | 2017-11-27 07:59 | Internal Med Progress Note ---
<Marty Orozco - Last Filed: 11/27/17 15:29> Date of Encounter: 11/27/17 Time of Encounter: 07:57 - Assessment and plan (1) Pneumonia Current Visit: Yes Status: Acute Assessment and plan: Patient with shortness of breath, leukocytosis with bandemia, subjective fever. Patient has no recent hospitalization. Consider community acquired pneumonia. - CXR revealed mild patchy opacification within the left perihilar region. - Levaquin and Zosyn IV given in ED - Continue Azithromycin and Rocephin (Day 2) - Follow up blood culture - Urine Strep pneumo and Legionella Antigens pending - Encourage incentive spirometry Qualifiers: Pneumonia type: due to unspecified organism Laterality: unspecified laterality Lung location: unspecified part of lung Qualified Code(s): J18.9 - Pneumonia, unspecified organism (2) Elevated troponin Current Visit: Yes Status: Acute Assessment and plan: Patient denies chest pain. Patient has elevated troponin with symptoms of shortness of breath. Need to rule out ACS/NSTEMI. - Continuous cardiac monitoring - Decreasing serial troponins - EKG shows RBBB, which is not shown on previous EKG. - Echocardiogram 11/27/17 Impressions: LVEF 65%. Mild left ventricular diastolic dysfunction. Normal right ventricular structure and function. Mild mitral regurgitation. Mild tricuspid regurgitation. Mild pulmonary hypertension. - Cardiology consulted, cardiology does not plan any intervention, symptoms attributed to demand ischemia in the setting of PNA and AECOPD - Stop heparin drip per cardiology recommendation. - Regular diet (3) COPD (chronic obstructive pulmonary disease) Current Visit: No Status: Chronic Assessment and plan: Acute COPD exacerbation - Continue steroids and bronchodilator treatments, which have improved her symptoms. - Continue antibiotics, Prednisone 40MG PO daily, and Duonebs - Closely monitor patient Qualifiers: COPD type: unspecified COPD Qualified Code(s): J44.9 - Chronic obstructive pulmonary disease, unspecified (4) History of non-Hodgkin's lymphoma Current Visit: No Status: Chronic Assessment and plan: In remission. Not on any treatment at this point. (5) Anemia Current Visit: No Status: Chronic Assessment and plan: No signs of active bleeding Elevated MCV, patient denies chronic alcohol dependence Vit B12 and folate levels pending Last colonoscopy 4 years ago revealed polyps Continue outpatient monitoring Qualifiers: Anemia type: unspecified type Qualified Code(s): D64.9 - Anemia, unspecified (6) DVT prophylaxis Current Visit: No Status: Acute Assessment and plan: Heparin SubQ - Time Spent With Patient Total time spent is greater than 50% in coordination of care (as documented) at patient's floor/unit and/or counseling patient: - Subjective Interval history: Patient seen and examined resting comfortably in bed. Patient is currently NPO awaiting cardiology eval for possible procedure today. She denies CP and requests advancing her diet. - Constitutional Vitals: Temp Pulse Resp BP Pulse Ox 97.8 F 83 16 130/52 93 11/27/17 07:07 11/27/17 07:07 11/27/17 07:07 11/27/17 07:07 11/27/17 07:07 General appearance: Present: cooperative, A&O X 3, no acute distress, answers questions appropriately - Head Head exam: Present: atraumatic, normocephalic - Eye Eye exam: Present: PERRL, conjuntiva pink, sclera anicteric Pupils: Present: PERRL - ENT ENT exam: Present: mucous membranes dry, normal oropharynx - Neck Neck exam general surgery: Present: supple, trachea midline. Absent: lymphadenopathy - Respiratory Respiratory exam: Present: decreased breath sounds. Absent: accessory muscle use, CTAB, rales, rhonchi, wheezes - Cardiovascular Cardiovascular exam: Present: RRR, +S1, +S2. Absent: diastolic murmur, gallop, rubs, systolic murmur - GI/Abdominal GI/Abdominal exam: Present: normal bowel sounds, soft, no peritoneal signs. Absent: distended, tenderness - Extremities Exam Extremities exam: Present: warm, radial pulses palpable and symmetrical. Absent : calf tenderness, cyanotic, pedal edema - Back Exam Back exam: Present: normal inspection. Absent: paraspinal tenderness, tenderness - Neurological Exam Neurological exam: Present: CN II-XII intact, oriented X3, no focal deficits. Absent: pronater drift, facial droop, speech deficit - Psychiatric Psychiatric exam: Present: normal affect, normal mood - Skin Skin exam: Present: dry, intact, warm Internal Medicine: Result - Labs CBC & Chem 7: 11/27/17 00:15 11/27/17 00:15 Labs: Short CBC 11/27/17 Range/Units 00:15 WBC 17.8 H (4.3-11.1) K/mcL Hgb 9.9 L D (11.5-15.4) g/dL Hct 30.2 L (35.3-44.9) % Plt Count 180 (140-400) K/mcL Neutrophils # 15.7 H (1.6-8.9) K/mcL BMP 11/27/17 00:15 Sodium 137 Potassium 3.4 L Chloride 106 Carbon Dioxide 23 BUN 17 Creatinine 0.92 Glucose 238 H Calcium 9.3 Cardiac Enzymes 11/26/17 11/27/17 Range/Units 21:45 00:15 Troponin I 0.14 H* 0.11 H* (< 0.04) ng/mL - ABG Interpretation ABG results: PT/INR, D-dimer PT 14.1 Seconds (9.4-12.1) H 11/26/17 15:25 - Pulse Oximetry Interpretation Digit-Finger Pulse Oximetry Readin (On RA) - Impressions ITS Impressions Chest X-Ray 11/26/17 15:14 IMPRESSION: 1. Mild patchy opacification within the left perihilar region. 2. No acute abnormality identified in the right lung. D/ / Gabriel Harmon MD / Gabriel Harmon MD Interpreting Provider: Gabriel Harmon MD Echocardiogram 11/27/17 20:24 Impressions: LVEF 65%. Mild left ventricular diastolic dysfunction. Normal right ventricular structure and function. Mild mitral regurgitation. Mild tricuspid regurgitation. Mild pulmonary hypertension. Left Ventricular Wall Motion: Rest Echo Findings All wall segments showed normal motion. Findings: Study Quality * Technically challenging due to angulated echocardiographic windows. ECG Findings * Sinus rhythm with BBB. Left Ventricle * LVEF 65%. * Normal LV chamber size, wall thickness and function. * Mild left ventricular diastolic dysfunction. Right Ventricle * Normal right ventricular structure and function. Left Atrium * Moderately dilated left atrium. Right Atrium * Normal right atrial size. Mitral Valve * Mildly calcified mitral valve leaflets. * Mild mitral annular calcification * No mitral stenosis. * Mild mitral regurgitation. Aortic Valve * No aortic regurgitation. * No aortic stenosis. * Aortic valve not well visualized. Tricuspid Valve * Mild tricuspid regurgitation. * Normal tricuspid valve structure. * Estimated RA pressure is 8 mmHg. * Estimated RVSP is 46 mmHg. * Mild pulmonary hypertension. Pulmonic Valve * Pulmonic valve is not well visualized. * No pulmonic stenosis. * No pulmonic regurgitation. Pulmonary Artery * Pulmonary artery not well visualized. Aorta * Normally sized aortic root. * Not well visualized. Pericardium * There is no pericardial effusion present. Interatrial Septum * Interatrial septum not well evaluated. IVC * The IVC is not dilated. * < 50% respiratory change. Consult Discharge Plan - Plan Referrals: Serjio Engel Jr, MD [Primary Care Provider] - <GiancarloJhon Sanderjeremy - Last Filed: 11/27/17 18:23> Date of Encounter: 11/27/17 - Assessment and plan (1) Elevated troponin Current Visit: Yes Status: Acute (2) Pneumonia Current Visit: Yes Status: Acute Qualifiers: Pneumonia type: due to unspecified organism Laterality: unspecified laterality Lung location: unspecified part of lung Qualified Code(s): J18.9 - Pneumonia, unspecified organism (3) History of non-Hodgkin's lymphoma Current Visit: No Status: Chronic (4) COPD (chronic obstructive pulmonary disease) Current Visit: No Status: Chronic Qualifiers: COPD type: unspecified COPD Qualified Code(s): J44.9 - Chronic obstructive pulmonary disease, unspecified (5) Anemia Current Visit: No Status: Chronic Qualifiers: Anemia type: unspecified type Qualified Code(s): D64.9 - Anemia, unspecified (6) DVT prophylaxis Current Visit: No Status: Acute - Time Spent With Patient Total time spent is greater than 50% in coordination of care (as documented) at patient's floor/unit and/or counseling patient: - Constitutional Vitals: Temp Pulse Resp BP Pulse Ox 96.6 F L 78 16 128/47 96 11/27/17 16:00 11/27/17 16:00 11/27/17 16:01 11/27/17 16:00 11/27/17 16:01 Internal Medicine: Result - Labs CBC & Chem 7: 11/27/17 00:15 11/27/17 00:15 Labs: Short CBC 11/27/17 Range/Units 00:15 WBC 17.8 H (4.3-11.1) K/mcL Hgb 9.9 L D (11.5-15.4) g/dL Hct 30.2 L (35.3-44.9) % Plt Count 180 (140-400) K/mcL Neutrophils # 15.7 H (1.6-8.9) K/mcL BMP 11/27/17 00:15 Sodium 137 Potassium 3.4 L Chloride 106 Carbon Dioxide 23 BUN 17 Creatinine 0.92 Glucose 238 H Calcium 9.3 Cardiac Enzymes 11/26/17 11/27/17 Range/Units 21:45 00:15 Troponin I 0.14 H* 0.11 H* (< 0.04) ng/mL - ABG Interpretation ABG results: PT/INR, D-dimer PT 14.1 Seconds (9.4-12.1) H 11/26/17 15:25 - Impressions Impressions Echocardiogram 11/27/17 20:24 Impressions: LVEF 65%. Mild left ventricular diastolic dysfunction. Normal right ventricular structure and function. Mild mitral regurgitation. Mild tricuspid regurgitation. Mild pulmonary hypertension. Left Ventricular Wall Motion: Rest Echo Findings All wall segments showed normal motion. Findings: Study Quality * Technically challenging due to angulated echocardiographic windows. ECG Findings * Sinus rhythm with BBB. Left Ventricle * LVEF 65%. * Normal LV chamber size, wall thickness and function. * Mild left ventricular diastolic dysfunction. Right Ventricle * Normal right ventricular structure and function. Left Atrium * Moderately dilated left atrium. Right Atrium * Normal right atrial size. Mitral Valve * Mildly calcified mitral valve leaflets. * Mild mitral annular calcification * No mitral stenosis. * Mild mitral regurgitation. Aortic Valve * No aortic regurgitation. * No aortic stenosis. * Aortic valve not well visualized. Tricuspid Valve * Mild tricuspid regurgitation. * Normal tricuspid valve structure. * Estimated RA pressure is 8 mmHg. * Estimated RVSP is 46 mmHg. * Mild pulmonary hypertension. Pulmonic Valve * Pulmonic valve is not well visualized. * No pulmonic stenosis. * No pulmonic regurgitation. Pulmonary Artery * Pulmonary artery not well visualized. Aorta * Normally sized aortic root. * Not well visualized. Pericardium * There is no pericardial effusion present. Interatrial Septum * Interatrial septum not well evaluated. IVC * The IVC is not dilated. * < 50% respiratory change. - Attending Attestation I examined this patient and my medical decision-making was reviewed with the Resident Physician. I agree with the documented findings, disposition and treatment plan as described except to the extent set forth below.
[2017-11-27] MEDS: Aspirin Enteric Coated 81 MG Tablet PO SCH (08:27)
[2017-11-27] MEDS: predniSONE 20 MG TABLET PO SCH (08:27)
[2017-11-27] MEDS: Cholecalciferol (D-3) 1,000 UNIT TABLET PO SCH (08:27)
[2017-11-27] MEDS: cefTRIAXone 1,000 MG in Water for inj. (sterile) 20 ML 10 ML IVP SCH (08:27)
--- NOTE | 2017-11-27 10:24 | Cardiology Consult Note ---
Date of Encounter: 11/27/17 Time of Encounter: 09:00 Assessment and Plan (1) Pneumonia Current Visit: Yes Status: Acute Per cardiology: -Admitted with cough, fever, shortness of breath. -WBC 20.7 on admsision. -Chest x-ray with pneumonia. -On ATB. -Management per primary service. Qualifiers: Pneumonia type: due to unspecified organism Laterality: unspecified laterality Lung location: unspecified part of lung Qualified Code(s): J18.9 - Pneumonia, unspecified organism (2) Elevated troponin Current Visit: Yes Status: Acute Per cardiology: -Troponins 0.22, 0.14, 0.11 in the setting of pneumonia. -Denies chest pain. -ECG with Sr, HR 93, RBBB noted. Incomplete RBBB noted per ECG 10/22/16. -On asa, statin, heparin drip. -TTE pending. -10/2016 TTE with LVEF 60-65%, no segmental wall motion abnormalities noted. -Do not suspect NSTEMI, suspect demand ischemia related to above. No cardiac rehab consult warranted. -Will start BB. -Further recommendations pending TTE. Discussion w patient/family: The assessment and plan as outlined above was discussed with the patient who expressed understanding and agreement. All questions were answered. Thank you for involving us in the care of your patient. Please call with any questions. Discussed and reviewed with . History of Present Illness Consult date: 11/26/17 Requesting physician: Mahad Ken Consult reason: elevated troponin, ECG changes Chief complaint: shortness of breath History of present illness: Ms. Landin is a 72 year old female with a relevant past medial history of anemia , DVT s/p breana filter, GERD, peripheral neuropathy, anxiety, depression, lymphoma, HLD, PVD who presented to [facility] with complaints of "not feeling well." Patient reports she had fever, cough, nausea/vomiting, diarrhea, and increased shortness of breath at home. Patient states symptoms started Monday evening. Also states she just laid in bed all weekend. Patient denies chest pain. Prior to Monday, denies increased fatigue. Past Med Surg Social Fam HX - Past Medical History Attestation: Yes The following information was validated with the patient. Source: patient, old records reviewed Medical history: arthritis, cancer, GERD, hyperlipidemia Additional medical history: lymphoma Psychiatric history: no psych history - Past Surgical History Surgical History: colectomy, hysterectomy, splenectomy Additional surgical history: BREANA FILTER - Social History Smoking Status: Former smoker Smokeless Tobacco Status: No Alcohol use: none Drug use: none - Family History Father Family Member Ethnicity: Non- Living Status: Hx Family Cardiac Disorders: Yes (NC) Mother Family Member Ethnicity: Non- Living Status: Hx Family Cancer: Yes (Pancreatic) Sister Family Member Ethnicity: Non- Living Status: Still Living Hx Family Cardiac Disorders: Yes (CAD) Hx Family Cancer: Yes (Breast) Medications and Allergies Amitriptyline [Elavil] 10 mg PO HS 10/22/16 [History] Aspirin [Lo-Dose Aspirin EC] 81 mg PO DAILY 10/22/16 [History] Cholecalciferol (D-3) [Vitamin D] 1,000 unit PO DAILY 10/22/16 [History] Docusate Sodium [Colace] 100 mg PO DAILY 10/22/16 [History] Escitalopram [Lexapro] 20 mg PO DAILY 10/22/16 [History] Furosemide [Lasix] 20 mg PO DAILY PRN 10/22/16 [History] LORazepam [Ativan] 1 mg PO TID PRN 10/22/16 [History] Lansoprazole [Prevacid] 30 mg PO DAILY 10/22/16 [History] Lidocaine Patch [Lidoderm 5% patch] 1 patch TP DAILY 10/22/16 [History] Potassium Chloride [K-Tab ER] 20 meq PO DAILY PRN 10/22/16 [History] Simvastatin [Zocor] 20 mg PO DAILY 10/22/16 [History] Acetaminophen [Tylenol] 650 mg PO Q6HR PRN tablet 04/17/17 [Rx] 3 Allergy/AdvReac Type Severity Reaction Status Date / Time meloxicam Allergy Rash Verified 11/26/17 17:17 All Systems Review: The remainder of the systems were reviewed and are negative - Constitutional Constitutional: fever(s) - Cardiovascular Cardiovascular: as per HPI, dyspnea at rest, dyspnea on exertion - Respiratory Respiratory: cough - Gastrointestinal Gastrointestinal: diarrhea, nausea Physical Examination Vital Signs, Last 4 Hours Temp Pulse Resp BP Pulse Ox 11/27/17 09:52 16 94 11/27/17 07:07 97.8 F 83 16 130/52 93 General: Conversant, No Apparent Distress HEENT: Atraumatic, Normocephaly, Mucus Membranes Moist Neck: No JVD, Normal carotid pulses Cardiac: Reg Rate and Rhythm, Normal S1 and S2, No Murmur Lungs: Normal Breath Sounds, No Wheeze, Rales, Rhonchi Neuro: Alert and responsive, No focal deficits noted Abdomen: Soft, Non-Tender Skin: No rashes noted on visualized skin Musculoskeletal: No Chest Wall Tenderness Extremities: No Clubbing, No Cyanosis, No Edema, Normal Pulses Results 11/27/17 00:15 11/27/17 00:15 Lab Results Impressions Chest X-Ray 11/26/17 15:14 IMPRESSION: 1. Mild patchy opacification within the left perihilar region. 2. No acute abnormality identified in the right lung. D/ / Gabriel Harmon MD / Gabriel Harmon MD Interpreting Provider: Gabriel Harmon MD Active Medications Acetaminophen (Tylenol) 650 mg PO Q6HR PRN PRN Reason: Mild Pain/Fever Stop: 05/28/18 20:18 Amitriptyline HCl (Elavil) 10 mg PO HS LIV Stop: 05/29/18 00:16 Last Admin: 11/27/17 00:45 Dose: 10 mg Aspirin (Aspirin Ec) 81 mg PO DAILY LIV Stop: 05/29/18 09:01 Last Admin: 11/27/17 08:27 Dose: 81 mg Docusate Sodium (Colace) 100 mg PO DAILY LIV PRN Reason: Protocol Stop: 05/29/18 09:01 Last Admin: 11/27/17 08:27 Dose: 100 mg Escitalopram Oxalate (Lexapro) 20 mg PO DAILY LIV Stop: 05/29/18 09:01 Last Admin: 11/27/17 08:27 Dose: 20 mg Furosemide (Lasix) 20 mg PO DAILY PRN PRN Reason: fluid retention Stop: 05/28/18 20:20 Heparin Sodium (Porcine) (Heparin) 4,000 unit IVP Q6HR PRN PRN Reason: SEE COMMENTS Stop: 05/28/18 16:57 Heparin Sodium (Porcine) (Heparin) 2,000 unit IVP Q6H PRN PRN Reason: SEE COMMENTS Stop: 05/28/18 16:57 Last Admin: 11/27/17 01:04 Dose: 2,000 unit Heparin Sodium/Dextrose (Heparin 25,000 Unit/500 Ml D5w) 25,000 unit in 500 mls @ 18.398 mls/hr IVC .Q24H LIV; 12 UNIT/KG/HR PRN Reason: Protocol Stop: 05/28/18 17:01 Last Titration: 11/27/17 09:52 Dose: 13.95 unit/kg/hr, 21.4 mls/hr Azithromycin 500 mg/ Dextrose 250 mls @ 252 mls/hr IVPB Q24H LIV Stop: 05/29/18 01:01 Last Admin: 11/27/17 00:45 Dose: 252 mls/hr Ceftriaxone Sodium 1,000 mg/ (Sterile Water) 10 mls @ 600 mls/hr IVP DAILY LIV Stop: 05/29/18 09:01 Last Admin: 11/27/17 08:27 Dose: 600 mls/hr Potassium Chloride 40 meq/ (Lidocaine 2 ml/ Dextrose) 522 mls @ 130.5 mls/hr IVPB ONCE ONE Stop: 11/27/17 11:54 Last Admin: 11/27/17 09:59 Dose: 130.5 mls/hr Levalbuterol HCl (Xopenex) 1.25 mg IH [id number] LIV Stop: 05/28/18 22:01 Last Admin: 11/27/17 09:52 Dose: 1.25 mg Levalbuterol HCl (Xopenex) 1.25 mg IH Q4HR PRN PRN Reason: Wheezing Stop: 05/29/18 00:01 Lidocaine HCl (Lidoderm 5% Patch) 1 each TP DAILY LIV Stop: 05/29/18 09:01 Last Admin: 11/27/17 08:28 Dose: Not Given Lorazepam (Ativan) 1 mg PO TID PRN PRN Reason: Anxiety Stop: 05/28/18 20:20 Last Admin: 11/27/17 00:45 Dose: 1 mg Naloxone HCl (Narcan) 0.4 mg IVP Q2MIN PRN PRN Reason: SEE COMMENTS Stop: 05/28/18 20:18 Prednisone (Prednisone) 40 mg PO DAILY LIV Stop: 05/29/18 09:01 Last Admin: 11/27/17 08:27 Dose: 40 mg Simvastatin (Zocor) 20 mg PO DAILY LIV PRN Reason: Protocol Stop: 05/29/18 09:01 Last Admin: 11/27/17 08:27 Dose: 20 mg Vitamin D (Vitamin D) 1,000 unit PO DAILY LIV Stop: 05/29/18 09:01 Last Admin: 11/27/17 08:27 Dose: 1,000 unit Laboratory Tests 11/26/17 11/26/17 11/26/17 15:14 15:14 21:45 WBC 20.7 H Hgb 11.4 L Creatinine Troponin I 0.22 H* 0.14 H* 11/27/17 11/27/17 00:15 00:15 WBC 17.8 H Hgb 9.9 L D Creatinine 0.92 Troponin I 0.11 H* - Imaging and Cardiology Chest Xray: report reviewed Echo: pending, report reviewed - EKG Interpretation EKG results cardiology: personally reviewed (ECG with SR, HR 93. RBBB noted.), other (Telemetry reviewed with average HR previous 12 hours noted to be 85, SR. PVCs and PACs noted.) Consult Discharge Plan - Plan Referrals: Serjio Engel Jr, MD [Primary Care Provider] -
[2017-11-27] MEDS: Metoprolol XL (24 HR) Succ 25 MG TAB.ER.24H PO SCH (11:29)
[2017-11-27] MEDS ORDERED: Ipratropium/Albuterol Neb 3 ML ONE (15:47)
[2017-11-27] MEDS ORDERED: Albuterol 2.5 MG/3 ML NEBULIZER IH SCH (16:00)
[2017-11-27] MEDS: Ipratropium/Albuterol Neb 3 ML IH SCH ×2 (16:01→22:39)
--- NOTE | 2017-11-27 16:30 | Electrocardiograph Report ---
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
--- NOTE | 2017-11-27 16:31 | Electrocardiograph Report ---
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
[2017-11-27] MEDS: *HR* Heparin 5,000 UNIT/ML VIAL SQ SCH (17:50)
[2017-11-28] MEDS: Azithromycin 500 MG in D5% in Water 250 ML IVPB SCH (00:31)
[2017-11-28 04:28] LABS: Immature Granulocytes % 0.5 % (0-4); Lymphocytes # 3.3 K/mcL (0.6-4.6); Lymphocytes % 14.5 %; Mean Corpuscular HGB Conc 32.4 g/dL (31.6-35.5); Mean Corpuscular Volume 101.8 fL (83.0-100.0); Mean Platelet Volume 10.5 fL (9.4-12.4); Monocytes # 1.3 K/mcL (0.0-1.3); Monocytes % 5.7 %; Neutrophils # 18.2 K/mcL (1.6-8.9); Platelet Count 175 K/mcL (140-400); Red Blood Count 2.85 M/mcL (3.82-4.97); Segmented Neutrophils % 79.3 %
[2017-11-28 04:30] LABS: Hemoglobin 9.4 g/dL (11.5-15.4)
[2017-11-28] MEDS: Ipratropium/Albuterol Neb 3 ML IH SCH ×4 (04:32→22:08)
[2017-11-28 04:46] LABS: BUN/Creatinine Ratio 27 (6-26); Blood Urea Nitrogen 21 mg/dL (8-23); Calcium 9.3 mg/dL (8.6-10.3); Carbon Dioxide 24 mEq/L (23-29); Chloride 110 mEq/L (98-107); Glucose 111 mg/dL (70-105); Osmolality,Calculated 294 (280-300); Sodium 140 mEq/L (136-145); eGFR For African Americans > 60 (> 60); eGFR For Non-African Americans > 60 (> 60)
[2017-11-28 05:16] LABS: Folate > 22.3 ng/mL (3.0-16.0); Vitamin B12 103 pg/mL (250-1100)
[2017-11-28] MEDS: *HR* Heparin 5,000 UNIT/ML VIAL SQ SCH ×2 (06:24→17:57)
--- NOTE | 2017-11-28 07:18 | Internal Med Progress Note ---
<Marty Orozco - Last Filed: 11/28/17 14:09> Date of Encounter: 11/28/17 Time of Encounter: 07:16 - Assessment and plan (1) Pneumonia Current Visit: Yes Status: Acute Assessment and plan: Patient with shortness of breath, leukocytosis with bandemia, subjective fever. Patient has no recent hospitalization. Consider community acquired pneumonia. - CXR revealed mild patchy opacification within the left perihilar region. - Levaquin and Zosyn IV given in ED - Continue Azithromycin and Rocephin (Day 3) - Blood culture shows no growth to date - Urine Strep pneumo and Legionella Antigens negative - Encourage incentive spirometry Qualifiers: Pneumonia type: due to unspecified organism Laterality: unspecified laterality Lung location: unspecified part of lung Qualified Code(s): J18.9 - Pneumonia, unspecified organism (2) COPD (chronic obstructive pulmonary disease) Current Visit: No Status: Chronic Assessment and plan: Acute COPD exacerbation - Continue steroids and bronchodilator treatments, which have improved her symptoms. - Continue antibiotics, Prednisone 40MG PO daily, and Duonebs, start Advair - Patient will need Rx for Albuterol inhaler and Advair hood discharge - Will need PFTs as an outpatient - Closely monitor patient Qualifiers: COPD type: unspecified COPD Qualified Code(s): J44.9 - Chronic obstructive pulmonary disease, unspecified (3) Elevated troponin Current Visit: Yes Status: Acute Assessment and plan: Patient denies chest pain. Patient has elevated troponin with symptoms of shortness of breath. Need to rule out ACS/NSTEMI. - Continuous cardiac monitoring - Decreasing serial troponins - EKG shows RBBB, which is not shown on previous EKG. - Echocardiogram 11/27/17 Impressions: LVEF 65%. Mild left ventricular diastolic dysfunction. Normal right ventricular structure and function. Mild mitral regurgitation. Mild tricuspid regurgitation. Mild pulmonary hypertension. - Cardiology consulted, cardiology does not plan any intervention, symptoms attributed to demand ischemia in the setting of PNA and AECOPD - Stop heparin drip per cardiology recommendation. - Regular diet (4) History of non-Hodgkin's lymphoma Current Visit: No Status: Chronic Assessment and plan: In remission. Not on any treatment at this point. (5) Anemia Current Visit: No Status: Chronic Assessment and plan: No signs of active bleeding Elevated MCV, patient denies chronic alcohol dependence Low Vit B12 level and high folate levels Last colonoscopy 4 years ago revealed polyps Differential diagnosis includes Myelodysplastic Syndrome, monitor CBC as an outpatient Qualifiers: Anemia type: B12 deficiency Vitamin B12 deficiency anemia type: unspecified B12 deficiency Qualified Code(s): D51.9 - Vitamin B12 deficiency anemia, unspecified (6) DVT prophylaxis Current Visit: No Status: Acute Assessment and plan: Heparin SubQ (7) Vitamin B12 deficiency Current Visit: Yes Status: Acute Assessment and plan: Low Vit B12 level Supplement Vit B12 PO - Time Spent With Patient Total time spent is greater than 50% in coordination of care (as documented) at patient's floor/unit and/or counseling patient: - Subjective Interval history: Patient seen and examined resting comfortably in bed. Patient reports dry cough and mild chronic headache this AM. She denies fever, chiils, CP, SOB, and reports tolerating her diet. She remains on IV antibiotics for PNA and WBC likely increased today due to steroid use. - Constitutional Vitals: Temp Pulse Resp BP Pulse Ox 98.0 F 62 18 133/56 94 11/28/17 06:50 11/28/17 04:39 11/28/17 06:50 11/28/17 06:50 11/28/17 04:39 General appearance: Present: cooperative, A&O X 3, no acute distress, answers questions appropriately - Head Head exam: Present: atraumatic, normocephalic - Eye Eye exam: Present: PERRL, conjuntiva pink, sclera anicteric Pupils: Present: PERRL - ENT ENT exam: Present: mucous membranes moist, normal oropharynx - Neck Neck exam general surgery: Present: supple, trachea midline. Absent: lymphadenopathy - Respiratory Respiratory exam: Present: decreased breath sounds. Absent: accessory muscle use, CTAB, rales, rhonchi, wheezes - Cardiovascular Cardiovascular exam: Present: RRR, +S1, +S2. Absent: diastolic murmur, gallop, rubs, systolic murmur - GI/Abdominal GI/Abdominal exam: Present: normal bowel sounds, soft, no peritoneal signs. Absent: distended, tenderness - Extremities Exam Extremities exam: Present: warm, radial pulses palpable and symmetrical. Absent : calf tenderness, cyanotic, pedal edema - Back Exam Back exam: Present: normal inspection. Absent: paraspinal tenderness, tenderness - Neurological Exam Neurological exam: Present: CN II-XII intact, oriented X3, no focal deficits. Absent: pronater drift, facial droop, speech deficit - Psychiatric Psychiatric exam: Present: normal affect, normal mood - Skin Skin exam: Present: dry, intact, warm Internal Medicine: Result - Labs CBC & Chem 7: 11/28/17 03:53 11/28/17 03:53 Labs: Short CBC 11/28/17 Range/Units 03:53 WBC 23.0 H (4.3-11.1) K/mcL Hgb 9.4 L (11.5-15.4) g/dL Hct 29.0 L (35.3-44.9) % Plt Count 175 (140-400) K/mcL Neutrophils # 18.2 H (1.6-8.9) K/mcL BMP 11/28/17 03:53 Sodium 140 Potassium 4.0 Chloride 110 H Carbon Dioxide 24 BUN 21 Creatinine 0.79 Glucose 111 H Calcium 9.3 - ABG Interpretation ABG results: PT/INR, D-dimer PT 14.1 Seconds (9.4-12.1) H 11/26/17 15:25 - Pulse Oximetry Interpretation Digit-Finger Pulse Oximetry Readin (On RA) - Impressions Impressions Echocardiogram 11/27/17 20:24 Impressions: LVEF 65%. Mild left ventricular diastolic dysfunction. Normal right ventricular structure and function. Mild mitral regurgitation. Mild tricuspid regurgitation. Mild pulmonary hypertension. Left Ventricular Wall Motion: Rest Echo Findings All wall segments showed normal motion. Findings: Study Quality * Technically challenging due to angulated echocardiographic windows. ECG Findings * Sinus rhythm with BBB. Left Ventricle * LVEF 65%. * Normal LV chamber size, wall thickness and function. * Mild left ventricular diastolic dysfunction. Right Ventricle * Normal right ventricular structure and function. Left Atrium * Moderately dilated left atrium. Right Atrium * Normal right atrial size. Mitral Valve * Mildly calcified mitral valve leaflets. * Mild mitral annular calcification * No mitral stenosis. * Mild mitral regurgitation. Aortic Valve * No aortic regurgitation. * No aortic stenosis. * Aortic valve not well visualized. Tricuspid Valve * Mild tricuspid regurgitation. * Normal tricuspid valve structure. * Estimated RA pressure is 8 mmHg. * Estimated RVSP is 46 mmHg. * Mild pulmonary hypertension. Pulmonic Valve * Pulmonic valve is not well visualized. * No pulmonic stenosis. * No pulmonic regurgitation. Pulmonary Artery * Pulmonary artery not well visualized. Aorta * Normally sized aortic root. * Not well visualized. Pericardium * There is no pericardial effusion present. Interatrial Septum * Interatrial septum not well evaluated. IVC * The IVC is not dilated. * < 50% respiratory change. Consult Discharge Plan - Plan Referrals: Serjio Engel Jr, MD [Primary Care Provider] - <Steven Morel - Last Filed: 11/28/17 15:01> Date of Encounter: 11/28/17 - Assessment and plan (1) Elevated troponin Current Visit: Yes Status: Acute (2) Pneumonia Current Visit: Yes Status: Acute Qualifiers: Pneumonia type: due to unspecified organism Laterality: unspecified laterality Lung location: unspecified part of lung Qualified Code(s): J18.9 - Pneumonia, unspecified organism (3) History of non-Hodgkin's lymphoma Current Visit: No Status: Chronic (4) COPD (chronic obstructive pulmonary disease) Current Visit: No Status: Chronic Qualifiers: COPD type: unspecified COPD Qualified Code(s): J44.9 - Chronic obstructive pulmonary disease, unspecified (5) Anemia Current Visit: No Status: Chronic Qualifiers: Anemia type: B12 deficiency Vitamin B12 deficiency anemia type: unspecified B12 deficiency Qualified Code(s): D51.9 - Vitamin B12 deficiency anemia, unspecified (6) DVT prophylaxis Current Visit: No Status: Acute (7) Vitamin B12 deficiency Current Visit: Yes Status: Acute - Time Spent With Patient Total time spent is greater than 50% in coordination of care (as documented) at patient's floor/unit and/or counseling patient: - Constitutional Vitals: Temp Pulse Resp BP Pulse Ox 97.4 F L 70 16 120/80 96 11/28/17 11:13 11/28/17 11:13 11/28/17 11:13 11/28/17 11:13 11/28/17 11:13 Internal Medicine: Result - Labs CBC & Chem 7: 11/28/17 03:53 11/28/17 03:53 Labs: Short CBC 11/28/17 Range/Units 03:53 WBC 23.0 H (4.3-11.1) K/mcL Hgb 9.4 L (11.5-15.4) g/dL Hct 29.0 L (35.3-44.9) % Plt Count 175 (140-400) K/mcL Neutrophils # 18.2 H (1.6-8.9) K/mcL BMP 11/28/17 03:53 Sodium 140 Potassium 4.0 Chloride 110 H Carbon Dioxide 24 BUN 21 Creatinine 0.79 Glucose 111 H Calcium 9.3 - ABG Interpretation ABG results: PT/INR, D-dimer PT 14.1 Seconds (9.4-12.1) H 11/26/17 15:25 - Attending Attestation I performed an independent interview and examine of this patient. I am in agreement with the findings, assessment, and plan of Dr. Orozco, internal medicine resident. Patient is doing well clinically. Continue with antibiotics as outlined. Steroid taper as outlined above. She is displaying a macrocytic anemia which is associated with a low B12 level. I also wonder she may have an underlying myelodysplastic syndrome, which will need close follow- up as an outpatient. Consider outpatient hematology referral. Cardiology input is appreciated. Do not suspect non-STEMI. Patient has improved. Her white blood cell count has increased, although I suspect this is due to steroids.
[2017-11-28] MEDS: Aspirin Enteric Coated 81 MG Tablet PO SCH (08:06)
[2017-11-28] MEDS: predniSONE 20 MG TABLET PO SCH (08:06)
[2017-11-28] MEDS: Cyanocobalamin (B-12) 1,000 MCG TABLET PO SCH (08:07)
[2017-11-28] MEDS: Cholecalciferol (D-3) 1,000 UNIT TABLET PO SCH (08:07)
[2017-11-28] MEDS: Metoprolol XL (24 HR) Succ 25 MG TAB.ER.24H PO SCH (08:07)
[2017-11-28] MEDS: cefTRIAXone 1,000 MG in Water for inj. (sterile) 20 ML 10 ML IVP SCH (08:11)
[2017-11-28] MEDS: *HR* LORazepam 1 MG TABLET PO PRN (20:46)
[2017-11-28] MEDS: Budesonide/Formoterol 80/4.5 MDI IH SCH (22:08)
[2017-11-29] MEDS: Azithromycin 500 MG in D5% in Water 250 ML IVPB SCH (01:06)
[2017-11-29 01:59] LABS: Hematocrit 28.7 % (35.3-44.9); Hemoglobin 9.3 g/dL (11.5-15.4); Mean Corpuscular HGB Conc 32.4 g/dL (31.6-35.5); Mean Corpuscular Hemoglobin 33.2 pg (28.0-33.3); Mean Corpuscular Volume 102.5 fL (83.0-100.0); Mean Platelet Volume 10.5 fL (9.4-12.4); Platelet Count 175 K/mcL (140-400); Red Cell Distribution Width 15.2 % (11.5-14.5)
[2017-11-29] MEDS: Ipratropium/Albuterol Neb 3 ML IH SCH ×2 (04:20→11:20)
[2017-11-29] MEDS: *HR* Heparin 5,000 UNIT/ML VIAL SQ SCH (05:47)
[2017-11-29 07:33] VITALS: BP 124/59
--- NOTE | 2017-11-29 07:46 | Discharge Summary ---
- NOTES TO OUTPATIENT PROVIDER Notes to Outpatient Provider: Continue antibiotics and steroids. Her white blood cell count increased, although I suspect this is due to steroids. She is displaying a macrocytic anemia which is associated with a low B12 level. She may have an underlying myelodysplastic syndrome, which will need close follow- up as an outpatient. Consider outpatient hematology referral. Repeat CBC in 1 week. Will also need PFTs as an outpatient Date of Encounter: 11/29/17 Time of Encounter: 07:44 - Discharge Diagnosis (1) Pneumonia Priority: Primary Status: Acute Assessment and Plan: Patient with shortness of breath, leukocytosis with bandemia, subjective fever. Patient has no recent hospitalization. Consider community acquired pneumonia. - CXR revealed mild patchy opacification within the left perihilar region. - Levaquin and Zosyn IV given in ED - Continue Azithromycin (Day 4) and stop Rocephin, switch to Augmentin - Blood culture shows no growth to date - Urine Strep pneumo and Legionella Antigens negative - Encourage incentive spirometry Qualifiers: Pneumonia type: due to unspecified organism Laterality: unspecified laterality Lung location: unspecified part of lung Qualified Code(s): J18.9 - Pneumonia, unspecified organism (2) COPD (chronic obstructive pulmonary disease) Priority: Secondary Status: Chronic Assessment and Plan: Acute COPD exacerbation - Continue steroids and bronchodilator treatments, which have improved her symptoms. - Continue antibiotics, Prednisone 40MG PO daily, and Duonebs, start Advair - Patient will need Rx for Albuterol inhaler and Advair hood discharge - Will need PFTs as an outpatient - Closely monitor patient Qualifiers: COPD type: unspecified COPD Qualified Code(s): J44.9 - Chronic obstructive pulmonary disease, unspecified (3) Elevated troponin Priority: Secondary Status: Acute Assessment and Plan: Patient denies chest pain. Patient has elevated troponin with symptoms of shortness of breath. Need to rule out ACS/NSTEMI. - Continuous cardiac monitoring - Decreasing serial troponins - EKG shows RBBB, which is not shown on previous EKG. - Echocardiogram 11/27/17 Impressions: LVEF 65%. Mild left ventricular diastolic dysfunction. Normal right ventricular structure and function. Mild mitral regurgitation. Mild tricuspid regurgitation. Mild pulmonary hypertension. - Cardiology consulted, cardiology does not plan any intervention, symptoms attributed to demand ischemia in the setting of PNA and AECOPD - Stop heparin drip per cardiology recommendation. - Regular diet (4) History of non-Hodgkin's lymphoma Priority: Secondary Status: Chronic Assessment and Plan: In remission. Not on any treatment at this point. (5) Anemia Priority: Secondary Status: Chronic Assessment and Plan: No signs of active bleeding Elevated MCV, patient denies chronic alcohol dependence Low Vit B12 level and high folate levels Last colonoscopy 4 years ago revealed polyps Differential diagnosis includes Myelodysplastic Syndrome, monitor CBC as an outpatient Qualifiers: Anemia type: B12 deficiency Vitamin B12 deficiency anemia type: unspecified B12 deficiency Qualified Code(s): D51.9 - Vitamin B12 deficiency anemia, unspecified (6) Vitamin B12 deficiency Priority: Secondary Status: Acute Assessment and Plan: Low Vit B12 level Supplement Vit B12 PO (7) DVT prophylaxis Priority: Secondary Status: Acute Assessment and Plan: Heparin SubQ Hospital course: Ms. Landin is a 72 year old female Discharge discussed with: patient, nurse - Time Spent with Patient Total time spent providing and/or coordinating discharge services: - Discharge Medications Home Medications: Amitriptyline [Elavil] 10 mg PO HS 10/22/16 [History] Aspirin [Lo-Dose Aspirin EC] 81 mg PO DAILY 10/22/16 [History] Cholecalciferol (D-3) [Vitamin D] 1,000 unit PO DAILY 10/22/16 [History] Docusate Sodium [Colace] 100 mg PO DAILY 10/22/16 [History] Escitalopram [Lexapro] 20 mg PO DAILY 10/22/16 [History] Furosemide [Lasix] 20 mg PO DAILY PRN 10/22/16 [History] LORazepam [Ativan] 1 mg PO TID PRN 10/22/16 [History] Lansoprazole [Prevacid] 30 mg PO DAILY 10/22/16 [History] Lidocaine Patch [Lidoderm 5% patch] 1 patch TP DAILY 10/22/16 [History] Potassium Chloride [K-Tab ER] 20 meq PO DAILY PRN 10/22/16 [History] Simvastatin [Zocor] 20 mg PO DAILY 10/22/16 [History] Acetaminophen [Tylenol] 650 mg PO Q6HR PRN tablet 04/17/17 [Rx] Allergies/Adverse Reactions: 3 Allergy/AdvReac Type Severity Reaction Status Date / Time meloxicam Allergy Rash Verified 11/26/17 17:17 Date of admission: 11/26/17 20:17 Primary care physician: Serjio Engel Jr, MD Consults: 11/26/17 20:23 Consult to Cardiology [CONS] Routine Comment: Consulting Provider: Cardiology [place] Reason for Consult: NSTEMI? Cardio called by ER Call Completed: Yes 11/27/17 14:45 Consult to Nurse Navigator [CONS] Routine Comment: Pneumonia and COPD exac Discharging clinician: Marty Orozco Anticipated date of discharge: 11/29/17 - Constitutional Vitals: Temp Pulse Resp BP Pulse Ox 98 F 63 16 124/59 93 11/29/17 07:32 11/29/17 07:32 11/29/17 07:32 11/29/17 07:32 11/29/17 07:32 General appearance: Present: cooperative, A&O X 3, no acute distress, answers questions appropriately - Head Head exam: Present: atraumatic, normocephalic - Eye Eye exam: Present: PERRL, conjuntiva pink, sclera anicteric Pupils: Present: PERRL - ENT ENT exam: Present: mucous membranes moist, normal oropharynx - Neck Neck exam general surgery: Present: supple, trachea midline. Absent: lymphadenopathy - Respiratory Respiratory exam: Present: CTAB. Absent: accessory muscle use, rales, rhonchi, wheezes - Cardiovascular Cardiovascular exam: Present: RRR, +S1, +S2. Absent: diastolic murmur, gallop, rubs, systolic murmur - GI/Abdominal GI/Abdominal exam: Present: normal bowel sounds, soft, no peritoneal signs. Absent: distended, tenderness - Extremities Exam Extremities exam: Present: warm, radial pulses palpable and symmetrical. Absent : calf tenderness, cyanotic, pedal edema - Back Exam Back exam: Present: normal inspection. Absent: paraspinal tenderness, tenderness - Neurological Exam Neurological exam: Present: CN II-XII intact, oriented X3, no focal deficits. Absent: pronater drift, facial droop, speech deficit - Psychiatric Psychiatric exam: Present: normal affect, normal mood - Skin Skin exam: Present: dry, intact - Patient Status Disposition: Home, Self-Care Condition: Good Functional capacity at discharge: independent ambulation Overall status at discharge: patient is progressing back to baseline - Discharge Instructions Follow Up With: eSrjio Engel Jr, MD [Primary Care Provider] - - Diet and Activity Activity: increase activity as tolerated, resume usual activities as tolerated Diet: regular diet
[2017-11-29] MEDS: Cholecalciferol (D-3) 1,000 UNIT TABLET PO SCH (11:05)
[2017-11-29] MEDS: Aspirin Enteric Coated 81 MG Tablet PO SCH (11:05)
[2017-11-29] MEDS: Cyanocobalamin (B-12) 1,000 MCG TABLET PO SCH (11:05)
[2017-11-29] MEDS: predniSONE 20 MG TABLET PO SCH (11:05)
[2017-11-29] MEDS: Metoprolol XL (24 HR) Succ 25 MG TAB.ER.24H PO SCH (11:05)
[2017-11-29] MEDS: cefTRIAXone 1,000 MG in Water for inj. (sterile) 20 ML 10 ML IVP SCH (11:07)
[2017-11-29] MEDS: Budesonide/Formoterol 80/4.5 MDI IH SCH (11:20)
[2017-11-29] MEDS ORDERED: Levofloxacin 750 MG/150 ML 750 MG/150 ML BAG IVPB SCH (16:00)
--- NOTE | 2017-11-29 17:56 | Electrocardiograph Report ---
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
== END 2017-11-29 14:24 | disposition home or self-care (01) | DRG 190 ==
LOC: EMEROO 14:47 → 2NENU 14:47
PROVIDERS: ADMIT Hospitalist; ATTEND Hospitalist

== ENCOUNTER 2019-11-28 14:30 | Inpatient (IN) ==
[2019-11-28 15:28] LABS: Basophils % 0.3 %; Hematocrit 34.5 % (35.3-44.9); Hemoglobin 10.8 g/dL (11.5-15.4); Immature Granulocytes % 0.3 % (0-4); Lymphocytes # 2.4 K/mcL (0.6-4.6); Lymphocytes % 22.1 %; Mean Corpuscular HGB Conc 31.3 g/dL (31.6-35.5); Mean Corpuscular Hemoglobin 31.9 pg (28.0-33.3); Mean Corpuscular Volume 101.8 fL (83.0-100.0); Mean Platelet Volume 9.9 fL (9.4-12.4); Monocytes # 0.5 K/mcL (0.0-1.3); Monocytes % 4.6 %; Platelet Count 227 K/mcL (140-400); Red Blood Count 3.39 M/mcL (3.82-4.97); Red Cell Distribution Width 13.6 % (11.5-14.5); Segmented Neutrophils % 72.7 %
[2019-11-28] MEDS ORDERED: Azithromycin 500 MG in 0.9 % Sodium Chloride 250 ML IVPB ONE (15:43)
[2019-11-28] MEDS ORDERED: cefTRIAXone 1,000 MG in Water for inj. (sterile) 10 ML IVP ONE (15:43)
[2019-11-28 15:44] LABS: Troponin I 1.14 ng/mL (< 0.04)
[2019-11-28 15:46] LABS: BUN/Creatinine Ratio 14 (6-26); Blood Urea Nitrogen 14 mg/dL (8-23); Calcium 9.2 mg/dL (8.6-10.3); Carbon Dioxide 26 mEq/L (23-29); Chloride 103 mEq/L (98-107); Glucose 113 mg/dL (70-105); Osmolality,Calculated 285 (280-300); Potassium 4.3 mEq/L (3.5-5.1); Sodium 137 mEq/L (136-145); eGFR For African Americans > 60 (> 60); eGFR For Non-African Americans 55 (> 60)
[2019-11-28] MEDS ORDERED: Aspirin 81 MG TAB.CHEW ONE (16:08)
[2019-11-28] MEDS ORDERED: Naloxone 0.4 MG/ML INJ IVP PRN (16:39)
[2019-11-28] MEDS ORDERED: Aspirin 81 MG TAB.CHEW PO STA (16:41)
[2019-11-28] MEDS ORDERED: Furosemide 20 MG TABLET PO PRN (17:15)
[2019-11-28] MEDS: *HR* Heparin 5,000 UNIT/ML VIAL SQ SCH (18:09)
[2019-11-28 19:03] LABS: C-Reactive Protein 64 mg/L (Less than 10); Lactate Dehydrogenase 218 Units/L (140-271)
[2019-11-28 19:16] LABS: Ferritin 1431 ng/mL (10-120)
[2019-11-29] MEDS: *HR* Heparin 5,000 UNIT/ML VIAL SQ SCH (05:28)
[2019-11-29] MEDS: Acetaminophen 325 MG TABLET PO PRN ×2 (06:19→20:57)
[2019-11-29 06:29] LABS: Basophils % 0.2 %; Hemoglobin 9.6 g/dL (11.5-15.4); Immature Granulocytes % 0.7 % (0-4); Lymphocytes # 3.9 K/mcL (0.6-4.6); Lymphocytes % 21.2 %; Mean Corpuscular Hemoglobin 32.1 pg (28.0-33.3); Mean Corpuscular Volume 103.7 fL (83.0-100.0); Mean Platelet Volume 10.4 fL (9.4-12.4); Monocytes # 0.9 K/mcL (0.0-1.3); Neutrophils # 13.5 K/mcL (1.6-8.9); Platelet Count 193 K/mcL (140-400); Red Blood Count 2.99 M/mcL (3.82-4.97); Red Cell Distribution Width 13.9 % (11.5-14.5); Segmented Neutrophils % 72.9 %; White Blood Count 18.5 K/mcL (4.3-11.1)
[2019-11-29 06:49] LABS: BUN/Creatinine Ratio 21 (6-26); Blood Urea Nitrogen 18 mg/dL (8-23); Calcium 8.9 mg/dL (8.6-10.3); Carbon Dioxide 27 mEq/L (23-29); Chloride 102 mEq/L (98-107); Glucose 89 mg/dL (70-105); Magnesium 1.8 mg/dL (1.6-2.6); Osmolality,Calculated 281 (280-300); Potassium 3.7 mEq/L (3.5-5.1); Sodium 135 mEq/L (136-145); eGFR For African Americans > 60 (> 60); eGFR For Non-African Americans > 60 (> 60)
[2019-11-29] MEDS ORDERED: Doxycycline 100 MG in 0.9 % Sodium Chloride Mini Bag 100 ML IVPB SCH (09:00)
[2019-11-29] MEDS: Cholecalciferol (D-3) 1,000 UNIT (25MCG) TABLET PO SCH (09:09)
[2019-11-29] MEDS: Cyanocobalamin (B-12) 1,000 MCG TABLET PO SCH (09:09)
[2019-11-29] MEDS: cefTRIAXone 2,000 MG in Water for inj. (sterile) 20 ML IVP SCH (09:09)
[2019-11-29] MEDS: Aspirin Enteric Coated 81 MG Tablet PO SCH (09:09)
[2019-11-29] MEDS: Doxycycline 100 MG CAPSULE PO SCH ×2 (09:09→20:58)
[2019-11-29] MEDS: *HR* Enoxaparin 80 MG/0.8 ML SYRINGE SQ SCH ×2 (09:46→16:52)
[2019-11-29] MEDS: *HR* LORazepam 1 MG TABLET PO PRN (20:58)
[2019-11-30 04:16] LABS: Basophils % 0.2 %; Hematocrit 29.3 % (35.3-44.9); Hemoglobin 9.1 g/dL (11.5-15.4); Immature Granulocytes % 0.9 % (0-4); Lymphocytes % 23.6 %; Mean Corpuscular HGB Conc 31.1 g/dL (31.6-35.5); Mean Corpuscular Hemoglobin 31.7 pg (28.0-33.3); Mean Corpuscular Volume 102.1 fL (83.0-100.0); Mean Platelet Volume 10.8 fL (9.4-12.4); Monocytes # 0.8 K/mcL (0.0-1.3); Monocytes % 4.7 %; Neutrophils # 11.9 K/mcL (1.6-8.9); Platelet Count 200 K/mcL (140-400); Red Blood Count 2.87 M/mcL (3.82-4.97); Red Cell Distribution Width 13.8 % (11.5-14.5); Segmented Neutrophils % 70.6 %; White Blood Count 16.9 K/mcL (4.3-11.1)
[2019-11-30 04:34] LABS: BUN/Creatinine Ratio 20 (6-26); Blood Urea Nitrogen 14 mg/dL (8-23); Calcium 8.8 mg/dL (8.6-10.3); Carbon Dioxide 27 mEq/L (23-29); Chloride 103 mEq/L (98-107); Glucose 86 mg/dL (70-105); Osmolality,Calculated 284 (280-300); Potassium 3.8 mEq/L (3.5-5.1); Sodium 137 mEq/L (136-145); eGFR For African Americans > 60 (> 60); eGFR For Non-African Americans > 60 (> 60)
[2019-11-30] MEDS: *HR* Enoxaparin 80 MG/0.8 ML SYRINGE SQ SCH ×2 (06:22→17:54)
[2019-11-30] MEDS: Cholecalciferol (D-3) 1,000 UNIT (25MCG) TABLET PO SCH (07:31)
[2019-11-30] MEDS: Doxycycline 100 MG CAPSULE PO SCH ×2 (07:31→19:44)
[2019-11-30] MEDS: Aspirin Enteric Coated 81 MG Tablet PO SCH (07:31)
[2019-11-30] MEDS: Cyanocobalamin (B-12) 1,000 MCG TABLET PO SCH (07:31)
[2019-11-30] MEDS: cefTRIAXone 2,000 MG in Water for inj. (sterile) 20 ML IVP SCH (07:32)
[2019-11-30] MEDS: carvediloL 6.25 MG TABLET PO SCH ×2 (16:09)
[2019-12-01] MEDS: *HR* LORazepam 1 MG TABLET PO PRN ×2 (00:16→20:51)
[2019-12-01 07:21] LABS: Basophils % 0.4 %; Hematocrit 28.9 % (35.3-44.9); Hemoglobin 9.1 g/dL (11.5-15.4); Immature Granulocytes % 0.3 % (0-4); Lymphocytes # 3.1 K/mcL (0.6-4.6); Lymphocytes % 32.8 %; Mean Corpuscular HGB Conc 31.5 g/dL (31.6-35.5); Mean Corpuscular Hemoglobin 32.4 pg (28.0-33.3); Mean Corpuscular Volume 102.8 fL (83.0-100.0); Monocytes # 0.6 K/mcL (0.0-1.3); Monocytes % 6.5 %; Neutrophils # 5.6 K/mcL (1.6-8.9); Platelet Count 205 K/mcL (140-400); Red Blood Count 2.81 M/mcL (3.82-4.97); Red Cell Distribution Width 13.8 % (11.5-14.5); White Blood Count 9.3 K/mcL (4.3-11.1)
[2019-12-01] MEDS: *HR* Enoxaparin 80 MG/0.8 ML SYRINGE SQ SCH (07:26)
[2019-12-01 07:44] LABS: BUN/Creatinine Ratio 17 (6-26); Blood Urea Nitrogen 12 mg/dL (8-23); Calcium 9.2 mg/dL (8.6-10.3); Carbon Dioxide 28 mEq/L (23-29); Chloride 103 mEq/L (98-107); Glucose 89 mg/dL (70-105); Osmolality,Calculated 281 (280-300); Potassium 4.1 mEq/L (3.5-5.1); Sodium 136 mEq/L (136-145); eGFR For African Americans > 60 (> 60); eGFR For Non-African Americans > 60 (> 60)
[2019-12-01] MEDS: cefTRIAXone 2,000 MG in Water for inj. (sterile) 20 ML IVP SCH (08:32)
[2019-12-01] MEDS: Doxycycline 100 MG CAPSULE PO SCH ×2 (08:32→20:51)
[2019-12-01] MEDS: Cholecalciferol (D-3) 1,000 UNIT (25MCG) TABLET PO SCH (08:32)
[2019-12-01] MEDS: Aspirin Enteric Coated 81 MG Tablet PO SCH (08:32)
[2019-12-01] MEDS: carvediloL 6.25 MG TABLET PO SCH ×2 (08:33→16:33)
[2019-12-01] MEDS: Cyanocobalamin (B-12) 1,000 MCG TABLET PO SCH (08:33)
[2019-12-01] MEDS ORDERED: *HR* Heparin 5,000 UNIT/ML VIAL IVP ONE (16:04)
[2019-12-01] MEDS ORDERED: *HR* Heparin 5,000 UNIT/ML VIAL IVP PRN ×2 (16:04)
[2019-12-01] MEDS ORDERED: Heparin 25,000 UNIT/250 ML D5W 25,000 UNIT/250 ML IV.SOLN IVC SCH (16:15)
[2019-12-01 16:25] LABS: Hematocrit 29.9 % (35.3-44.9); Hemoglobin 9.3 g/dL (11.5-15.4); Mean Corpuscular HGB Conc 31.1 g/dL (31.6-35.5); Mean Corpuscular Hemoglobin 31.6 pg (28.0-33.3); Mean Corpuscular Volume 101.7 fL (83.0-100.0); Platelet Count 226 K/mcL (140-400); Red Blood Count 2.94 M/mcL (3.82-4.97); Red Cell Distribution Width 13.9 % (11.5-14.5)
[2019-12-01 16:33] LABS: Heparin anti-factor XA UFH 0.38 IU/mL (0.30-0.70); INR 1.1; Prothrombin Time 12.5 Seconds (9.4-12.1)
[2019-12-01] MEDS: Cefdinir 300 MG CAPSULE PO SCH (20:51)
[2019-12-02 02:53] LABS: Basophils % 0.5 %; Eosinophils # 0.2 K/mcL (0.0-0.6); Eosinophils % 2.1 %; Hematocrit 28.9 % (35.3-44.9); Hemoglobin 9.2 g/dL (11.5-15.4); Immature Granulocytes % 0.5 % (0-4); Lymphocytes % 35.2 %; Mean Corpuscular HGB Conc 31.8 g/dL (31.6-35.5); Mean Corpuscular Hemoglobin 32.3 pg (28.0-33.3); Mean Corpuscular Volume 101.4 fL (83.0-100.0); Mean Platelet Volume 10.3 fL (9.4-12.4); Monocytes # 0.8 K/mcL (0.0-1.3); Neutrophils # 4.5 K/mcL (1.6-8.9); Platelet Count 217 K/mcL (140-400); Red Blood Count 2.85 M/mcL (3.82-4.97); Red Cell Distribution Width 13.6 % (11.5-14.5); Segmented Neutrophils % 52.7 %; White Blood Count 8.6 K/mcL (4.3-11.1)
[2019-12-02 03:12] LABS: BUN/Creatinine Ratio 17 (6-26); Blood Urea Nitrogen 17 mg/dL (8-23); Calcium 9.1 mg/dL (8.6-10.3); Carbon Dioxide 27 mEq/L (23-29); Chloride 102 mEq/L (98-107); Glucose 96 mg/dL (70-105); Osmolality,Calculated 281 (280-300); Potassium 3.9 mEq/L (3.5-5.1); Sodium 135 mEq/L (136-145); eGFR For African Americans > 60 (> 60); eGFR For Non-African Americans 52 (> 60)
[2019-12-02] MEDS ORDERED: *HR* Enoxaparin 40 MG/0.4 ML SYRINGE SQ SCH (06:00)
[2019-12-02] MEDS: Cefdinir 300 MG CAPSULE PO SCH (10:11)
[2019-12-02] MEDS: Cyanocobalamin (B-12) 1,000 MCG TABLET PO SCH (10:11)
[2019-12-02] MEDS: Cholecalciferol (D-3) 1,000 UNIT (25MCG) TABLET PO SCH (10:11)
[2019-12-02] MEDS: Doxycycline 100 MG CAPSULE PO SCH (10:11)
[2019-12-02] MEDS: carvediloL 6.25 MG TABLET PO SCH (10:12)
[2019-12-02] MEDS: Aspirin Enteric Coated 81 MG Tablet PO SCH (10:12)
[2019-12-02 11:04] VITALS: BP 147/55
== END 2019-12-02 18:15 | disposition home or self-care (01) | DRG 193 ==
LOC: EMEROOARM 14:30 → 2NENU 14:30 → 2ANU 12-01 12:00
PROVIDERS: ADMIT Internal Medicine; ATTEND Internal Medicine

== ENCOUNTER 2020-03-02 16:02 | Inpatient (IN) ==
[2020-03-02] MEDS ORDERED: *HR* FentaNYL (PF) 100 MCG/2 ML VIAL IVP ONE (16:30)
[2020-03-02 17:11] LABS: Basophils % 0.2 %; Hemoglobin 8.9 g/dL (11.5-15.4); Immature Granulocytes % 0.3 % (0-4); Lymphocytes # 2.6 K/mcL (0.6-4.6); Mean Corpuscular HGB Conc 31.8 g/dL (31.6-35.5); Mean Corpuscular Hemoglobin 30.5 pg (28.0-33.3); Mean Corpuscular Volume 95.9 fL (83.0-100.0); Mean Platelet Volume 10.2 fL (9.4-12.4); Monocytes # 0.8 K/mcL (0.0-1.3); Neutrophils # 5.3 K/mcL (1.6-8.9); Platelet Count 240 K/mcL (140-400); Red Blood Count 2.92 M/mcL (3.82-4.97); Red Cell Distribution Width 14.9 % (11.5-14.5); Segmented Neutrophils % 60.5 %; White Blood Count 8.8 K/mcL (4.3-11.1)
[2020-03-02 17:16] LABS: INR 1.2; Prothrombin Time 13.2 Seconds (9.4-12.1)
[2020-03-02 17:25] LABS: Calcium 9.2 mg/dL (8.6-10.3); Potassium 4.1 mEq/L (3.5-5.1)
[2020-03-02] MEDS ORDERED: Morphine Sulfate 2 MG/ML SYRINGE IVP ONE (17:43)
[2020-03-02] MEDS ORDERED: Naloxone 0.4 MG/ML INJ IVP PRN (17:57)
[2020-03-02] MEDS ORDERED: Ondansetron 4 MG/2 ML VIAL IVP PRN (17:57)
[2020-03-02] MEDS ORDERED: *HR* HYDROmorphone (PF) 1 MG/ML SYRINGE IVP PRN (18:00)
[2020-03-02] MEDS: *HR* OxyCODONE Immed Rel 5 MG TABLET PO PRN (20:43)
[2020-03-02] MEDS: *HR* Heparin 5,000 UNIT/ML VIAL SQ SCH (20:44)
[2020-03-02] MEDS: *HR* LORazepam 2 MG/ML VIAL IVP PRN (22:59)
[2020-03-02] MEDS: Acetaminophen 325 MG TABLET PO PRN (23:00)
[2020-03-03 02:09] LABS: Basophils % 0.3 %; Hematocrit 25.6 % (35.3-44.9); Immature Granulocytes % 0.3 % (0-4); Lymphocytes # 1.8 K/mcL (0.6-4.6); Lymphocytes % 27.9 %; Mean Corpuscular HGB Conc 31.3 g/dL (31.6-35.5); Mean Corpuscular Hemoglobin 29.4 pg (28.0-33.3); Mean Corpuscular Volume 94.1 fL (83.0-100.0); Mean Platelet Volume 10.8 fL (9.4-12.4); Monocytes # 0.6 K/mcL (0.0-1.3); Monocytes % 8.9 %; Neutrophils # 4.1 K/mcL (1.6-8.9); Nucleated Red Blood Cells 0.3 /100 WBC (0); Platelet Count 217 K/mcL (140-400); Red Blood Count 2.72 M/mcL (3.82-4.97); Red Cell Distribution Width 14.9 % (11.5-14.5); Segmented Neutrophils % 62.6 %; White Blood Count 6.6 K/mcL (4.3-11.1)
[2020-03-03 02:31] LABS: Calcium 8.7 mg/dL (8.6-10.3); Magnesium 1.9 mg/dL (1.6-2.6); Potassium 4.3 mEq/L (3.5-5.1)
[2020-03-03] MEDS: *HR* Heparin 5,000 UNIT/ML VIAL SQ SCH ×2 (03:27→16:55)
[2020-03-03] MEDS: Acetaminophen 325 MG TABLET PO PRN (10:53)
[2020-03-03] MEDS: *HR* OxyCODONE Immed Rel 5 MG TABLET PO PRN (16:38)
[2020-03-03] MEDS: *HR* LORazepam 2 MG/ML VIAL IVP PRN (17:02)
[2020-03-03] MEDS ORDERED: Famotidine 20 MG/2 ML VIAL ONE (17:58)
[2020-03-03] MEDS ORDERED: Acetaminophen IV 1,000 MG/100 ML INFUS..BTL ONE (18:06)
[2020-03-03] MEDS ORDERED: *HR* Propofol 200 MG/20 ML VIAL IVP ONE (18:07)
[2020-03-03] MEDS ORDERED: *HR* FentaNYL (PF) 100 MCG/2 ML VIAL ONE (18:07)
[2020-03-03] MEDS ORDERED: Lidocaine -MPF 2% 2 ML VIAL ONE (18:08)
[2020-03-03] MEDS ORDERED: *HR* PHENYLEPHRINE 1,000 MCG/10 ML SYRINGE IVP ONE ×2 (18:19→18:58)
[2020-03-03] MEDS ORDERED: *HR* Metoprolol 5 MG/5 ML VIAL IVP ONE (18:58)
[2020-03-03] MEDS ORDERED: *HR* OxyCODONE Immed Rel 5 MG TABLET PO PRN ×2 (19:40→20:26)
[2020-03-03] MEDS ORDERED: *HR* Labetalol 20 MG/4 ML SYRINGE IVP PRN (19:40)
[2020-03-03] MEDS ORDERED: *HR* HYDROmorphone 2 MG TABLET PO PRN (19:40)
[2020-03-03] MEDS ORDERED: *HR* Promethazine 25 MG/ML VIAL IVP PRN (19:40)
[2020-03-03] MEDS ORDERED: *HR* HYDROmorphone (PF) 1 MG/ML SYRINGE IVP PRN ×2 (19:40→20:26)
[2020-03-03] MEDS ORDERED: Pregabalin 75 MG CAPSULE PO ONE (19:40)
[2020-03-03] MEDS ORDERED: Ondansetron 4 MG/2 ML VIAL IVP PRN (20:26)
[2020-03-03] MEDS ORDERED: *HR* LORazepam 2 MG/ML VIAL IVP PRN (20:26)
[2020-03-03] MEDS ORDERED: Naloxone 0.4 MG/ML INJ IVP PRN (20:26)
[2020-03-03] MEDS ORDERED: Acetaminophen 325 MG TABLET PO PRN (20:26)
[2020-03-03] MEDS ORDERED: 0.9 % Sodium Chloride 500 ML IVC ONE (22:19)
[2020-03-03] MEDS ORDERED: 0.9 % Sodium Chloride 500 ML ONE (22:21)
[2020-03-03 22:26] LABS: White Blood Count 8.1 K/mcL (4.3-11.1)
[2020-03-03 22:27] LABS: Basophils % 0.2 %; Hematocrit 23.5 % (35.3-44.9); Hemoglobin 7.3 g/dL (11.5-15.4); Immature Granulocytes % 0.4 % (0-4); Lymphocytes # 1.7 K/mcL (0.6-4.6); Lymphocytes % 20.6 %; Mean Corpuscular HGB Conc 31.1 g/dL (31.6-35.5); Mean Corpuscular Hemoglobin 30.5 pg (28.0-33.3); Mean Corpuscular Volume 98.3 fL (83.0-100.0); Mean Platelet Volume 10.2 fL (9.4-12.4); Monocytes # 0.6 K/mcL (0.0-1.3); Neutrophils # 5.8 K/mcL (1.6-8.9); Platelet Count 171 K/mcL (140-400); Red Blood Count 2.39 M/mcL (3.82-4.97); Segmented Neutrophils % 71.8 %
[2020-03-03] MEDS ORDERED: 0.9 % Sodium Chloride 250 ML ONE (23:24)
[2020-03-03] MEDS: CeFAZolin 2 GM/120 ML BAG IVPB SCH (23:26)
[2020-03-04] MEDS ORDERED: *HR* Heparin 5,000 UNIT/ML VIAL SQ SCH (06:00)
[2020-03-04 06:47] LABS: Basophils % 0.3 %; Hematocrit 25.3 % (35.3-44.9); Hemoglobin 7.9 g/dL (11.5-15.4); Immature Granulocytes % 0.2 % (0-4); Lymphocytes # 1.5 K/mcL (0.6-4.6); Lymphocytes % 25.5 %; Mean Corpuscular HGB Conc 31.2 g/dL (31.6-35.5); Mean Corpuscular Hemoglobin 30.6 pg (28.0-33.3); Mean Corpuscular Volume 98.1 fL (83.0-100.0); Mean Platelet Volume 10.9 fL (9.4-12.4); Monocytes # 0.6 K/mcL (0.0-1.3); Monocytes % 9.2 %; Neutrophils # 3.9 K/mcL (1.6-8.9); Platelet Count 159 K/mcL (140-400); Red Blood Count 2.58 M/mcL (3.82-4.97); Red Cell Distribution Width 14.6 % (11.5-14.5); Segmented Neutrophils % 64.8 %
[2020-03-04 07:02] LABS: Calcium 8.2 mg/dL (8.6-10.3); Potassium 4.6 mEq/L (3.5-5.1)
[2020-03-04] MEDS: Cholecalciferol (D-3) 1,000 UNIT (25MCG) TABLET PO SCH (08:24)
[2020-03-04] MEDS: CeFAZolin 2 GM/120 ML BAG IVPB SCH (08:24)
[2020-03-04] MEDS ORDERED: *HR* OxyCODONE/APAP 5/325 TABLET PO PRN (08:32)
[2020-03-04] MEDS ORDERED: Cholecalciferol (D-3) 1,000 UNIT (25MCG) TABLET PO SCH (09:00)
[2020-03-04] MEDS ORDERED: Aspirin Enteric Coated 81 MG Tablet PO SCH ×2 (09:00)
[2020-03-04] MEDS ORDERED: 0.9 % Sodium Chloride 250 ML IVC ONE (11:36)
[2020-03-04] MEDS ORDERED: 0.9 % Sodium Chloride 250 ML IVC SCH (11:45)
[2020-03-04] MEDS ORDERED: 0.9 % Sodium Chloride 500 ML ONE (13:34)
[2020-03-04 18:09] LABS: Hematocrit 26.5 % (35.3-44.9); Hemoglobin 8.4 g/dL (11.5-15.4)
[2020-03-05 01:27] LABS: Basophils % 0.3 %; Eosinophils # 0.2 K/mcL (0.0-0.6); Eosinophils % 2.3 %; Hematocrit 24.9 % (35.3-44.9); Immature Granulocytes % 0.4 % (0-4); Lymphocytes # 2.7 K/mcL (0.6-4.6); Lymphocytes % 36.6 %; Mean Corpuscular HGB Conc 32.1 g/dL (31.6-35.5); Mean Corpuscular Hemoglobin 30.4 pg (28.0-33.3); Mean Corpuscular Volume 94.7 fL (83.0-100.0); Mean Platelet Volume 10.9 fL (9.4-12.4); Monocytes # 0.7 K/mcL (0.0-1.3); Monocytes % 9.4 %; Neutrophils # 3.8 K/mcL (1.6-8.9); Platelet Count 136 K/mcL (140-400); Red Blood Count 2.63 M/mcL (3.82-4.97); Red Cell Distribution Width 14.9 % (11.5-14.5); White Blood Count 7.4 K/mcL (4.3-11.1)
[2020-03-05 01:28] LABS: INR 1.2; Prothrombin Time 13.6 Seconds (9.4-12.1)
[2020-03-05] MEDS: *HR* LORazepam 1 MG TABLET PO PRN ×3 (01:30→18:56)
[2020-03-05 01:43] LABS: Calcium 8.2 mg/dL (8.6-10.3); Magnesium 1.8 mg/dL (1.6-2.6); Potassium 3.8 mEq/L (3.5-5.1)
[2020-03-05] MEDS: Aspirin Enteric Coated 325 MG Tablet PO SCH (07:44)
[2020-03-05] MEDS: Cholecalciferol (D-3) 1,000 UNIT (25MCG) TABLET PO SCH (07:44)
[2020-03-05 09:01] LABS: Hematocrit 27.2 % (35.3-44.9); Hemoglobin 8.6 g/dL (11.5-15.4)
[2020-03-05 10:34] LABS: Bacteria,Urine Few per hpf (None-Few); Bilirubin,Urine Negative (Negative); Blood,Urine Moderate (Negative); Clarity,Urine Clear (Clear); Color,Urine Light-Yellow (Yellow); Glucose,Urine (UA) Normal (Normal); Ketones,Urine Negative (Negative); Leukocyte Esterase,Urine Negative (Negative); Mucus,Urine Few per lpf (None-Few); Nitrite,Urine Negative (Negative); PH,Urine 5.5 pH Units (5.0-8.0); Protein,Urine 50 mg/dL (Neg-Trace); RBC,Urine 0-3 per hpf (0-3); Transitional Epi Cells,Urine Few per hpf (None-Few); Urobilinogen,Urine Normal (Normal); WBC,Urine 0-3 per hpf (0-3)
[2020-03-05] MEDS ORDERED: *HR* Metoprolol 5 MG/5 ML VIAL IVP ONE (14:27)
[2020-03-05] MEDS ORDERED: Furosemide 20 MG/2 ML VIAL IVP ONE (14:33)
[2020-03-05 15:30] LABS: % Iron Saturation 10 % (15-50); Iron 18 mcg/dL (50-170); Transferrin 132 mg/dL (203-362)
[2020-03-05] MEDS: Levalbuterol Neb 0.63 MG/3 ML IH SCH ×2 (15:35→21:40)
[2020-03-05 15:45] LABS: Ferritin > 1500 ng/mL (10-120)
[2020-03-05 15:48] LABS: Folate 18.2 ng/mL (3.0-16.0)
[2020-03-05] MEDS: *HR* OxyCODONE/APAP 7.5/325 TABLET PO PRN (16:47)
[2020-03-05] MEDS ORDERED: *HR* Metoprolol 5 MG/5 ML VIAL IVP PRN (19:21)
[2020-03-06] MEDS: Levalbuterol Neb 0.63 MG/3 ML IH SCH ×4 (03:32→21:34)
[2020-03-06 05:03] LABS: Basophils % 0.3 %; Hematocrit 26.4 % (35.3-44.9); Hemoglobin 8.2 g/dL (11.5-15.4); Immature Granulocytes % 0.4 % (0-4); Lymphocytes # 4.1 K/mcL (0.6-4.6); Lymphocytes % 40.4 %; Mean Corpuscular HGB Conc 31.1 g/dL (31.6-35.5); Mean Corpuscular Hemoglobin 29.5 pg (28.0-33.3); Mean Platelet Volume 10.5 fL (9.4-12.4); Monocytes # 0.8 K/mcL (0.0-1.3); Monocytes % 8.2 %; Neutrophils # 5.2 K/mcL (1.6-8.9); Platelet Count 159 K/mcL (140-400); Red Blood Count 2.78 M/mcL (3.82-4.97); Red Cell Distribution Width 15.3 % (11.5-14.5); Segmented Neutrophils % 50.7 %; White Blood Count 10.2 K/mcL (4.3-11.1)
[2020-03-06 05:12] LABS: Calcium 8.6 mg/dL (8.6-10.3); Potassium 3.7 mEq/L (3.5-5.1)
[2020-03-06] MEDS: Cholecalciferol (D-3) 1,000 UNIT (25MCG) TABLET PO SCH (07:58)
[2020-03-06] MEDS: Aspirin Enteric Coated 325 MG Tablet PO SCH (07:59)
[2020-03-06] MEDS ORDERED: Perflutren Lipid Microsphere 1.3 ML in 0.9 % Sodium Chloride 8.7 ML IVP PRN (11:56)
[2020-03-06] MEDS: Magnesium Oxide 400 MG TABLET PO SCH ×2 (13:42→21:12)
[2020-03-06] MEDS: *HR* LORazepam 1 MG TABLET PO PRN (17:12)
[2020-03-06] MEDS: *HR* OxyCODONE/APAP 7.5/325 TABLET PO PRN (17:12)
[2020-03-07 00:58] LABS: Basophils % 0.3 %; Hematocrit 24.5 % (35.3-44.9); Hemoglobin 7.8 g/dL (11.5-15.4); Immature Granulocytes % 0.4 % (0-4); Lymphocytes % 26.9 %; Mean Corpuscular HGB Conc 31.8 g/dL (31.6-35.5); Mean Corpuscular Hemoglobin 30.5 pg (28.0-33.3); Mean Corpuscular Volume 95.7 fL (83.0-100.0); Mean Platelet Volume 10.6 fL (9.4-12.4); Monocytes # 0.7 K/mcL (0.0-1.3); Monocytes % 10.1 %; Neutrophils # 4.6 K/mcL (1.6-8.9); Nucleated Red Blood Cells 0.3 /100 WBC (0); Platelet Count 156 K/mcL (140-400); Red Blood Count 2.56 M/mcL (3.82-4.97); Red Cell Distribution Width 15.4 % (11.5-14.5); Segmented Neutrophils % 62.3 %; White Blood Count 7.3 K/mcL (4.3-11.1)
[2020-03-07 01:13] LABS: Calcium 8.6 mg/dL (8.6-10.3); Potassium 4.6 mEq/L (3.5-5.1)
[2020-03-07] MEDS: Levalbuterol Neb 0.63 MG/3 ML IH SCH ×2 (04:37→10:54)
[2020-03-07 07:22] VITALS: BP 130/73
[2020-03-07] MEDS ORDERED: Iron Sucrose Complex 200 MG in 0.9 % Sodium Chloride 100 ML IVPB ONE (08:23)
[2020-03-07] MEDS: Aspirin Enteric Coated 325 MG Tablet PO SCH (09:22)
[2020-03-07] MEDS: *HR* LORazepam 1 MG TABLET PO PRN (09:23)
[2020-03-07] MEDS: Cholecalciferol (D-3) 1,000 UNIT (25MCG) TABLET PO SCH (09:23)
[2020-03-08] MEDS ORDERED: Metoprolol XL (24 HR) Succ 50 MG TAB.ER.24H PO SCH (09:00)
== END 2020-03-07 13:25 | DRG 481 ==
LOC: EMEROOARM 16:02 → 3ANU 16:02 → SUATTDRO 19:50 → 3ANU 20:20
PROVIDERS: ADMIT Pharmacist; ATTEND Internal Medicine

== ENCOUNTER 2020-03-30 16:19 | Inpatient (IN) ==
[2020-03-30] MEDS ORDERED: 0.9 % Sodium Chloride 1,000 ML IVC ONE (16:27)
[2020-03-30] MEDS ORDERED: Piperacillin/Tazobactam 3.375 GM in 0.9 % Sodium Chloride Mini Bag 100 ML IVPB ONE (16:37)
[2020-03-30] MEDS ORDERED: Vancomycin 1,500 MG/265 ML IV.SOLN IVPB ONE (16:37)
[2020-03-30] MEDS ORDERED: Vancomycin 1,250 MG/262.5 ML IV.SOLN IVPB ONE (16:43)
[2020-03-30 17:26] LABS: VBG HCO3 27 mEq/L (21-27); VBG PCO2 42 mmHg (41-51); VBG PH 7.41 pH Units (7.32-7.42); VBG PO2 38 mmHg (25-50)
[2020-03-30 17:37] LABS: INR 1.2; Prothrombin Time 13.5 Seconds (9.4-12.1)
[2020-03-30 17:48] LABS: Alanine Aminotransferase 13 Units/L (7-52); Albumin 2.9 g/dL (3.5-5.7); Albumin/Globulin Ratio 0.6 (1.1-2.2); Alkaline Phosphatase 84 Units/L (34-104); Aspartate Amino Transferase 56 Units/L (13-39); BUN/Creatinine Ratio 26 (6-26); Bilirubin,Direct 0.2 mg/dL (0.0-0.2); Bilirubin,Indirect 0.3 mg/dL (0.0-1.0); Bilirubin,Total 0.5 mg/dL (0.3-1.0); Blood Urea Nitrogen 38 mg/dL (8-23); Calcium 10.5 mg/dL (8.6-10.3); Carbon Dioxide 30 mEq/L (23-29); Chloride 94 mEq/L (98-107); Globulin 4.5 g/dL (2.4-3.5); Glucose 95 mg/dL (70-105); Osmolality,Calculated 279 (280-300); Potassium 4.3 mEq/L (3.5-5.1); Sodium 130 mEq/L (136-145); Total Protein 7.4 g/dL (6.4-8.9); Troponin I < 0.03 ng/mL (< 0.04); eGFR For African Americans 42 (> 60); eGFR For Non-African Americans 35 (> 60)
[2020-03-30 17:50] LABS: Mean Corpuscular Volume 92.1 fL (83.0-100.0); Red Cell Distribution Width 17.2 % (11.5-14.5)
[2020-03-30 17:52] LABS: Hematocrit 32.5 % (35.3-44.9); Hemoglobin 10.3 g/dL (11.5-15.4); Immature Platelets 13.1 % (1.1-6.1); Mean Corpuscular HGB Conc 31.7 g/dL (31.6-35.5); Mean Corpuscular Hemoglobin 29.2 pg (28.0-33.3); Mean Platelet Volume 12.4 fL (9.4-12.4); Red Blood Count 3.53 M/mcL (3.82-4.97); White Blood Count 5.5 K/mcL (4.3-11.1)
[2020-03-30 17:55] LABS: Adenovirus Not Detected (Not Detect); Bordetella Pertussis Not Detected (Not Detect); Chlamydophila pneumoniae Not Detected (Not Detect); Coronavirus 229E Not Detected (Not Detect); Coronavirus HKU1 Not Detected (Not Detect); Coronavirus NL63 Not Detected (Not Detect); Coronavirus OC43 Not Detected (Not Detect); Human Metapneumovirus Not Detected (Not Detect); Human Rhinovirus/Enterovirus Not Detected (Not Detect); Influenza A Subtype 2009 H1 Not Detected (Not Detect); Influenza B Not Detected (Not Detect); Mycoplasma pneumoniae Not Detected (Not Detect); Parainfluenza Virus 1 Not Detected (Not Detect); Parainfluenza Virus 2 Not Detected (Not Detect); Parainfluenza Virus 3 Not Detected (Not Detect); Parainfluenza Virus 4 Not Detected (Not Detect); Respiratory Syncytial Virus Not Detected (Not Detect); SARS-CoV-2 Not Detected (Not Detect)
[2020-03-30 18:01] LABS: Bilirubin,Urine Negative (Negative); Blood,Urine Negative (Negative); Clarity,Urine Clear (Clear); Color,Urine Yellow (Yellow); Glucose,Urine (UA) Normal (Normal); Ketones,Urine Negative (Negative); Leukocyte Esterase,Urine Negative (Negative); Mucus,Urine Few per lpf (None-Few); Nitrite,Urine Negative (Negative); PH,Urine 6.5 pH Units (5.0-8.0); Protein,Urine 30 mg/dL (Neg-Trace); RBC,Urine 0-3 per hpf (0-3); Specific Gravity,Urine 1.018 (1.010-1.025); Squamous Epithelial Cell,Urine Few per hpf (None-Few); Urobilinogen,Urine Normal (Normal); WBC,Urine 0-3 per hpf (0-3)
[2020-03-30 18:26] LABS: Platelet Count 79 K/mcL (140-400)
[2020-03-30 18:30] LABS: Lymphocytes # 1.8 K/mcL (0.6-4.6); Neutrophils # 3.7 K/mcL (1.6-8.9)
[2020-03-30 18:31] LABS: Platelet Estimate Decreased (Normal); Reactive Lymphocytes Present (Not Present)
[2020-03-30] MEDS ORDERED: Azithromycin 500 MG in 0.9 % Sodium Chloride 250 ML IVPB ONE (18:46)
[2020-03-30] MEDS ORDERED: Naloxone 0.4 MG/ML INJ IVP PRN (19:50)
[2020-03-30] MEDS ORDERED: Vancomycin (wt based) 1,000 MG VIAL IVPB SCH (20:00)
[2020-03-30] MEDS ORDERED: 0.9 % Sodium Chloride 1,000 ML IVC SCH (20:00)
[2020-03-30] MEDS ORDERED: Nitroglycerin 0.4 MG TAB.SUBL SL PRN (22:22)
[2020-03-30] MEDS ORDERED: Furosemide 20 MG TABLET PO PRN (22:22)
[2020-03-30] MEDS ORDERED: Melatonin 3 MG TABLET PO ONE (23:58)
[2020-03-31 02:59] LABS: Immature Granulocytes % 0.4 % (0-4)
[2020-03-31 03:00] LABS: Basophils % 0.6 %; Eosinophils % 0.2 %; Hemoglobin 8.3 g/dL (11.5-15.4); Immature Platelets 11.1 % (1.1-6.1); Lymphocytes # 2.2 K/mcL (0.6-4.6); Lymphocytes % 42.8 %; Mean Corpuscular HGB Conc 31.9 g/dL (31.6-35.5); Mean Corpuscular Hemoglobin 30.1 pg (28.0-33.3); Mean Corpuscular Volume 94.2 fL (83.0-100.0); Mean Platelet Volume 12.5 fL (9.4-12.4); Monocytes # 0.2 K/mcL (0.0-1.3); Monocytes % 4.4 %; Neutrophils # 2.7 K/mcL (1.6-8.9); Red Blood Count 2.76 M/mcL (3.82-4.97); Red Cell Distribution Width 17.2 % (11.5-14.5); Segmented Neutrophils % 51.6 %; White Blood Count 5.2 K/mcL (4.3-11.1)
[2020-03-31 03:17] LABS: Albumin 2.4 g/dL (3.5-5.7); Albumin/Globulin Ratio 0.6 (1.1-2.2); Bilirubin,Total 0.4 mg/dL (0.3-1.0); Calcium 9.1 mg/dL (8.6-10.3); Globulin 3.9 g/dL (2.4-3.5); Potassium 3.9 mEq/L (3.5-5.1); Total Protein 6.3 g/dL (6.4-8.9)
[2020-03-31 03:38] LABS: Platelet Count 68 K/mcL (140-400)
[2020-03-31] MEDS ORDERED: Aspirin Enteric Coated 325 MG Tablet PO SCH (09:00)
[2020-03-31] MEDS: Piperacillin/Tazobactam 3.375 GM in 0.9 % Sodium Chloride Mini Bag 100 ML IVPB SCH ×3 (09:48→15:22)
[2020-03-31] MEDS: Cholecalciferol (D-3) 1,000 UNIT (25MCG) TABLET PO SCH (09:48)
[2020-03-31] MEDS: Azithromycin 500 MG in 0.9 % Sodium Chloride 250 ML IVPB SCH (22:11)
[2020-04-01] MEDS ORDERED: Aspirin Enteric Coated 81 MG Tablet PO SCH (09:00)
[2020-04-01] MEDS: Piperacillin/Tazobactam 3.375 GM in 0.9 % Sodium Chloride Mini Bag 100 ML IVPB SCH ×4 (09:41→23:23)
[2020-04-01] MEDS: Cholecalciferol (D-3) 1,000 UNIT (25MCG) TABLET PO SCH (09:45)
[2020-04-01] MEDS: Haloperidol Lactate 5 MG/ML VIAL IVP PRN (16:56)
[2020-04-01] MEDS: Azithromycin 500 MG in 0.9 % Sodium Chloride 250 ML IVPB SCH (20:56)
[2020-04-02 02:10] LABS: Hemoglobin 8.6 g/dL (11.5-15.4)
[2020-04-02 02:12] LABS: Hematocrit 26.8 % (35.3-44.9); Immature Platelets 13.6 % (1.1-6.1); Mean Corpuscular HGB Conc 32.1 g/dL (31.6-35.5); Mean Corpuscular Volume 93.4 fL (83.0-100.0); Mean Platelet Volume 13.9 fL (9.4-12.4); Red Blood Count 2.87 M/mcL (3.82-4.97); Red Cell Distribution Width 17.5 % (11.5-14.5)
[2020-04-02 02:19] LABS: Calcium 8.9 mg/dL (8.6-10.3); Potassium 3.9 mEq/L (3.5-5.1)
[2020-04-02] MEDS ORDERED: 0.9 % Sodium Chloride 1,000 ML IVC SCH (07:30)
[2020-04-02] MEDS: Piperacillin/Tazobactam 3.375 GM in 0.9 % Sodium Chloride Mini Bag 100 ML IVPB SCH (08:39)
[2020-04-02] MEDS: Aspirin Enteric Coated 81 MG Tablet PO SCH (08:47)
[2020-04-02] MEDS: Cholecalciferol (D-3) 1,000 UNIT (25MCG) TABLET PO SCH (08:47)
[2020-04-02] MEDS ORDERED: levoFLOXacin 750 MG TABLET PO SCH (11:30)
[2020-04-02 14:16] LABS: VBG HCO3 25 mEq/L (21-27); VBG PCO2 48 mmHg (41-51); VBG PH 7.32 pH Units (7.32-7.42); VBG PO2 68 mmHg (25-50)
[2020-04-02 14:43] LABS: Thyroid Stimulating Hormone 1.332 mcIU/mL (0.340-5.600)
[2020-04-02] MEDS: *HR* LORazepam 0.5 MG TABLET PO SCH (21:50)
[2020-04-02] MEDS: Nystatin Cream 15 GM TUBE TP SCH (21:56)
[2020-04-02] MEDS: Haloperidol Lactate 5 MG/ML VIAL IVP PRN (22:22)
[2020-04-03] MEDS: Acetaminophen 325 MG TABLET PO PRN (02:48)
[2020-04-03 05:47] LABS: Immature Granulocytes % 0.4 % (0-4)
[2020-04-03 05:48] LABS: Basophils % 0.2 %; Hemoglobin 8.7 g/dL (11.5-15.4); Immature Platelets 12.8 % (1.1-6.1); Lymphocytes # 1.7 K/mcL (0.6-4.6); Lymphocytes % 36.3 %; Mean Corpuscular HGB Conc 31.1 g/dL (31.6-35.5); Mean Corpuscular Hemoglobin 28.8 pg (28.0-33.3); Mean Corpuscular Volume 92.7 fL (83.0-100.0); Mean Platelet Volume 12.3 fL (9.4-12.4); Monocytes # 0.2 K/mcL (0.0-1.3); Monocytes % 4.9 %; Neutrophils # 2.7 K/mcL (1.6-8.9); Nucleated Red Blood Cells 0.6 /100 WBC (0); Red Blood Count 3.02 M/mcL (3.82-4.97); Red Cell Distribution Width 17.8 % (11.5-14.5); Segmented Neutrophils % 58.2 %; White Blood Count 4.7 K/mcL (4.3-11.1)
[2020-04-03 05:49] LABS: VBG HCO3 25 mEq/L (21-27); VBG PCO2 38 mmHg (41-51); VBG PH 7.42 pH Units (7.32-7.42); VBG PO2 175 mmHg (25-50)
[2020-04-03 06:02] LABS: Platelet Count 62 K/mcL (140-400)
[2020-04-03 06:04] LABS: Calcium 9.5 mg/dL (8.6-10.3); Potassium 3.3 mEq/L (3.5-5.1)
[2020-04-03 07:21] LABS: Anisocytosis 1+ (Not Present); Macrocytosis Present (Not Present); Platelet Estimate Decreased (Normal); Poikilocytosis 1+ (Not Present)
[2020-04-03] MEDS: Cholecalciferol (D-3) 1,000 UNIT (25MCG) TABLET PO SCH (08:18)
[2020-04-03] MEDS: Aspirin Enteric Coated 81 MG Tablet PO SCH (08:18)
[2020-04-03] MEDS: Nystatin Cream 15 GM TUBE TP SCH ×2 (08:18→20:51)
[2020-04-03] MEDS ORDERED: Potassium Chloride Elixir 20 MEQ/15 ML UDC PO ONE (08:23)
[2020-04-03] MEDS: *HR* LORazepam 0.5 MG TABLET PO SCH (20:50)
[2020-04-04 03:34] LABS: Hemoglobin 8.9 g/dL (11.5-15.4); Red Cell Distribution Width 17.9 % (11.5-14.5)
[2020-04-04 03:36] LABS: Immature Platelets 14.6 % (1.1-6.1)
[2020-04-04 03:39] LABS: Mean Corpuscular HGB Conc 31.8 g/dL (31.6-35.5); Mean Corpuscular Hemoglobin 29.1 pg (28.0-33.3); Mean Corpuscular Volume 91.5 fL (83.0-100.0); Red Blood Count 3.06 M/mcL (3.82-4.97); White Blood Count 4.9 K/mcL (4.3-11.1)
[2020-04-04 03:41] LABS: Platelet Count 65 K/mcL (140-400)
[2020-04-04 03:52] LABS: BUN/Creatinine Ratio 21 (6-26); Blood Urea Nitrogen 23 mg/dL (8-23); Calcium 9.8 mg/dL (8.6-10.3); Carbon Dioxide 23 mEq/L (23-29); Chloride 102 mEq/L (98-107); Glucose 77 mg/dL (70-105); Osmolality,Calculated 274 (280-300); Sodium 131 mEq/L (136-145); eGFR For African Americans > 60 (> 60); eGFR For Non-African Americans 50 (> 60)
[2020-04-04] MEDS: Nystatin Cream 15 GM TUBE TP SCH ×2 (10:20→20:51)
[2020-04-04] MEDS: Cholecalciferol (D-3) 1,000 UNIT (25MCG) TABLET PO SCH (10:21)
[2020-04-04] MEDS: Acetaminophen 325 MG TABLET PO PRN (12:52)
[2020-04-04] MEDS: *HR* LORazepam 0.5 MG TABLET PO SCH (20:50)
[2020-04-05 01:59] LABS: Hematocrit 30.6 % (35.3-44.9); Hemoglobin 9.8 g/dL (11.5-15.4); Mean Corpuscular Hemoglobin 30.2 pg (28.0-33.3); Mean Corpuscular Volume 94.2 fL (83.0-100.0); Red Blood Count 3.25 M/mcL (3.82-4.97); Red Cell Distribution Width 18.4 % (11.5-14.5); White Blood Count 5.3 K/mcL (4.3-11.1)
[2020-04-05 02:00] LABS: Platelet Count 59 K/mcL (140-400)
[2020-04-05 02:20] LABS: BUN/Creatinine Ratio 25 (6-26); Blood Urea Nitrogen 25 mg/dL (8-23); Calcium 10.5 mg/dL (8.6-10.3); Carbon Dioxide 26 mEq/L (23-29); Chloride 99 mEq/L (98-107); Glucose 81 mg/dL (70-105); Osmolality,Calculated 273 (280-300); Potassium 4.2 mEq/L (3.5-5.1); Sodium 130 mEq/L (136-145); eGFR For African Americans > 60 (> 60); eGFR For Non-African Americans 53 (> 60)
[2020-04-05] MEDS ORDERED: Acetaminophen IV 1,000 MG/100 ML INFUS..BTL IVPB ONE (11:06)
[2020-04-05] MEDS: Nystatin Cream 15 GM TUBE TP SCH ×2 (12:28→20:28)
[2020-04-05] MEDS: Cholecalciferol (D-3) 1,000 UNIT (25MCG) TABLET PO SCH (12:40)
[2020-04-06 05:54] LABS: Basophils % 0.3 %; Hemoglobin 9.4 g/dL (11.5-15.4)
[2020-04-06 05:56] LABS: Hematocrit 29.3 % (35.3-44.9); Immature Granulocytes % 0.7 % (0-4); Immature Platelets 17.1 % (1.1-6.1); Lymphocytes # 2.1 K/mcL (0.6-4.6); Lymphocytes % 34.4 %; Mean Corpuscular HGB Conc 32.1 g/dL (31.6-35.5); Mean Corpuscular Hemoglobin 29.2 pg (28.0-33.3); Monocytes # 0.2 K/mcL (0.0-1.3); Monocytes % 3.8 %; Neutrophils # 3.7 K/mcL (1.6-8.9); Nucleated Red Blood Cells 0.5 /100 WBC (0); Red Blood Count 3.22 M/mcL (3.82-4.97); Segmented Neutrophils % 60.8 %; White Blood Count 6.1 K/mcL (4.3-11.1)
[2020-04-06 05:58] LABS: INR 1.2; Prothrombin Time 13.7 Seconds (9.4-12.1)
[2020-04-06 06:12] LABS: BUN/Creatinine Ratio 27 (6-26); Blood Urea Nitrogen 26 mg/dL (8-23); Carbon Dioxide 27 mEq/L (23-29); Chloride 99 mEq/L (98-107); Glucose 76 mg/dL (70-105); Osmolality,Calculated 276 (280-300); Potassium 4.1 mEq/L (3.5-5.1); Sodium 131 mEq/L (136-145); eGFR For African Americans > 60 (> 60); eGFR For Non-African Americans 55 (> 60)
[2020-04-06 06:14] LABS: Platelet Count 50 K/mcL (140-400)
[2020-04-06 06:53] LABS: Anisocytosis 1+ (Not Present); Pappenheimer Bodies 1+ (Not Present); Poikilocytosis 1+ (Not Present)
[2020-04-06 06:54] LABS: Platelet Estimate Decreased (Normal)
[2020-04-06] MEDS: Nystatin Cream 15 GM TUBE TP SCH ×2 (07:39→21:22)
[2020-04-06] MEDS: Cholecalciferol (D-3) 1,000 UNIT (25MCG) TABLET PO SCH (07:54)
[2020-04-06] MEDS ORDERED: 0.9 % Sodium Chloride 500 ML ONE (11:30)
[2020-04-06] MEDS ORDERED: *HR* Midazolam HCl 2 MG/2 ML VIAL IVP ONE (11:50)
[2020-04-06] MEDS ORDERED: *HR* FentaNYL (PF) 100 MCG/2 ML VIAL IVP ONE (11:50)
[2020-04-06] MEDS ORDERED: *HR* FentaNYL (PF) 100 MCG/2 ML VIAL ONE (11:51)
[2020-04-06] MEDS ORDERED: *HR* Midazolam HCl 2 MG/2 ML VIAL ONE (11:51)
[2020-04-07 00:08] LABS: Bacteria,Urine Few per hpf (None-Few); Bilirubin,Urine Negative (Negative); Blood,Urine Negative (Negative); Clarity,Urine Turbid (Clear); Color,Urine Yellow (Yellow); Glucose,Urine (UA) Normal (Normal); Hyaline Casts,Urine Moderate per lpf (None Seen); Ketones,Urine Negative (Negative); Leukocyte Esterase,Urine Negative (Negative); Mucus,Urine Few per lpf (None-Few); Nitrite,Urine Negative (Negative); Protein,Urine 50 mg/dL (Neg-Trace); Specific Gravity,Urine 1.023 (1.010-1.025); Squamous Epithelial Cell,Urine Few per hpf (None-Few); Urobilinogen,Urine Normal (Normal)
[2020-04-07 06:10] LABS: Hematocrit 25.8 % (35.3-44.9); Hemoglobin 8.3 g/dL (11.5-15.4); Immature Platelets 18.3 % (1.1-6.1); Mean Corpuscular HGB Conc 32.2 g/dL (31.6-35.5); Mean Corpuscular Hemoglobin 29.4 pg (28.0-33.3); Mean Corpuscular Volume 91.5 fL (83.0-100.0); Red Blood Count 2.82 M/mcL (3.82-4.97); Red Cell Distribution Width 18.4 % (11.5-14.5); White Blood Count 7.2 K/mcL (4.3-11.1)
[2020-04-07 06:13] LABS: Platelet Count 43 K/mcL (140-400)
[2020-04-07 06:29] LABS: BUN/Creatinine Ratio 27 (6-26); Blood Urea Nitrogen 28 mg/dL (8-23); Calcium 9.9 mg/dL (8.6-10.3); Carbon Dioxide 26 mEq/L (23-29); Chloride 100 mEq/L (98-107); Glucose 82 mg/dL (70-105); Osmolality,Calculated 279 (280-300); Potassium 3.8 mEq/L (3.5-5.1); Sodium 132 mEq/L (136-145); eGFR For African Americans > 60 (> 60); eGFR For Non-African Americans 52 (> 60)
[2020-04-07] MEDS ORDERED: Cyanocobalamin (B-12) 1,000 MCG/ML VIAL SQ SCH (09:00)
[2020-04-07] MEDS: Cholecalciferol (D-3) 1,000 UNIT (25MCG) TABLET PO SCH (10:16)
[2020-04-07] MEDS: Nystatin Cream 15 GM TUBE TP SCH ×2 (12:48→19:45)
[2020-04-07] MEDS ORDERED: 0.9 % Sodium Chloride 250 ML IVC SCH (14:00)
[2020-04-08] MEDS: Nystatin Cream 15 GM TUBE TP SCH (07:43)
[2020-04-08] MEDS: Acetaminophen 325 MG TABLET PO PRN (08:05)
[2020-04-08] MEDS ORDERED: Morphine Sulfate Oral CONC 10 MG/0.5 ML ORAL.SYG SL PRN (09:00)
[2020-04-08 11:49] VITALS: BP 101/62
== END 2020-04-08 13:50 | disposition hospice, home (50) | DRG 840 ==
LOC: EMEROOARM 16:19 → 2ANU 16:19 → SUATTDRO 20:09 → 2ANU 20:48 → SUATTDRO 04-03 12:09
PROVIDERS: ADMIT Internal Medicine; ATTEND Internal Medicine